=== PATIENT | male | born 1930 | race Caucasian/White ===

== ENCOUNTER 2016-08-31 | Outpatient (CLI) | payer MEDICARE, BC | END 2016-08-31 21:17 | disposition critical access hospital (66) | DX: R07.9 Chest pain, unspecified (principal) | CPT/HCPCS: A0425; A0427 ==

== ENCOUNTER 2016-08-31 21:34 | Inpatient (IN) | payer MEDICARE, BC ==
[2016-08-31] MEDS ORDERED: SODIUM CHLORIDE 0.9% 1,000 ML IV ONE (22:06)
[2016-08-31] MEDS ORDERED: ROCURONIUM 50 MG/5 ML VIAL IVP ONE ×2 (23:05)
[2016-08-31] MEDS ORDERED: MIDAZOLAM 50 MG/10 ML VIAL ONE (23:07)
[2016-08-31] MEDS ORDERED: diltiaZEM INJ 5 MG/ML VIAL ONE (23:47)
[2016-09-01] MEDS ORDERED: diltiaZEM INJ 5 MG/ML VIAL ONE (00:05)
[2016-09-01] MEDS ORDERED: KETOROLAC 60 MG/2 ML VIAL IVP STA (00:37)
[2016-09-01] MEDS ORDERED: IPRATROPIUM/ALBUTEROL 3 ML NEB INH STA (00:38)
[2016-09-01] MEDS ORDERED: KETOROLAC 30 MG/ML VIAL ONE (00:52)
[2016-09-01] MEDS ORDERED: IPRATROPIUM/ALBUTEROL 3 ML NEB INH ONE (00:53)
[2016-09-01] MEDS ORDERED: DEXAMETHASONE 10 MG/ML VIAL IVP STA (01:47)
[2016-09-01] MEDS ORDERED: cefTRIAXone 1 GM in SODIUM CHLORIDE 0.9% MINIBAG 100 ML IV STA (01:49)
[2016-09-01] MEDS ORDERED: DEXAMETHASONE 10 MG/ML VIAL ONE (02:14)
[2016-09-01] MEDS ORDERED: cefTRIAXone 1 GM VIAL ONE (02:14)
[2016-09-01] MEDS ORDERED: ONDANSETRON ODT 4 MG TABLET TL PRN (08:31)
[2016-09-01] MEDS ORDERED: ACETAMINOPHEN 325 MG TABLET PO PRN (08:31)
[2016-09-01] MEDS ORDERED: IPRATROPIUM/ALBUTEROL 3 ML NEB INH PRN (08:45)
[2016-09-01] MEDS ORDERED: KETOROLAC 10 MG TABLET PO PRN (08:49)
[2016-09-01] MEDS ORDERED: ENTACAPONE PO SCH (09:00)
[2016-09-01] MEDS ORDERED: LEVODOPA PO SCH (09:00)
[2016-09-01] MEDS ORDERED: [UNRECOGNIZED DRUG - OTHER] PO SCH (09:00)
[2016-09-01] MEDS ORDERED: CARBIDOPA PO SCH (09:00)
[2016-09-01] MEDS ORDERED: methylPREDNISolone SUCCINATE 40 MG/ML VIAL IVP SCH ×2 (09:30→13:00)
[2016-09-01] MEDS ORDERED: ENTACAPONE 200 MG TABLET PO SCH (10:00)
[2016-09-01] MEDS ORDERED: CARBIDOPA/LEVODOPA 25 MG/100 MG TABLET PO SCH (10:00)
[2016-09-01] MEDS: STALEVO PO SCH ×3 (12:30→20:59)
[2016-09-01] MEDS: guaiFENesin 600 MG TABLET PO SCH (12:59)
[2016-09-01] MEDS: PANTOPRAZOLE 40 MG TABLET PO SCH (12:59)
[2016-09-01] MEDS: POLYETHYLENE GLYCOL 3350 17 GM PACKET PO SCH (13:02)
[2016-09-01] MEDS: ENOXAPARIN 40 MG/0.4 ML SYRINGE SUBQ SCH (13:04)
[2016-09-01] MEDS: SENNA 8.6 MG TABLET PO SCH (14:29)
[2016-09-01] MEDS: DOCUSATE SODIUM 250 MG CAPSULE PO SCH (14:29)
[2016-09-01] MEDS: SODIUM CHLORIDE FLUSH 0.9% 10 ML SYRINGE IVP SCH ×2 (14:31→21:00)
[2016-09-01] MEDS: TAMSULOSIN 0.4 MG CAPSULE PO SCH (20:59)
[2016-09-02] MEDS: PANTOPRAZOLE 40 MG TABLET PO SCH (06:09)
[2016-09-02] MEDS: SODIUM CHLORIDE FLUSH 0.9% 10 ML SYRINGE IVP SCH ×3 (06:09→20:24)
[2016-09-02] MEDS: STALEVO PO SCH ×4 (08:19→20:25)
[2016-09-02] MEDS: guaiFENesin 600 MG TABLET PO SCH (08:20)
[2016-09-02] MEDS: DOCUSATE SODIUM 250 MG CAPSULE PO SCH (08:21)
[2016-09-02] MEDS: SENNA 8.6 MG TABLET PO SCH (08:22)
[2016-09-02] MEDS ORDERED: cefTRIAXone 2 GM in SODIUM CHLORIDE 0.9% MINIBAG 100 ML IV SCH (09:00)
[2016-09-02] MEDS ORDERED: cefTRIAXone 1 GM in SODIUM CHLORIDE 0.9% MINIBAG 100 ML IV SCH (09:00)
[2016-09-02] MEDS ORDERED: AZITHROMYCIN INJ 500 MG in SODIUM CHLORIDE 0.9% 250 ML IV SCH (09:00)
[2016-09-02] MEDS: cefTRIAXone 2 GM in SODIUM CHLORIDE 0.9% MINIBAG 100 ML IV SCH (09:11)
[2016-09-02] MEDS: POLYETHYLENE GLYCOL 3350 17 GM PACKET PO SCH (09:13)
[2016-09-02] MEDS: ENOXAPARIN 40 MG/0.4 ML SYRINGE SUBQ SCH (09:13)
[2016-09-02] MEDS: SODIUM CHLORIDE FLUSH 0.9% 10 ML SYRINGE IVP PRN ×2 (09:16→10:05)
[2016-09-02] MEDS: AZITHROMYCIN INJ 500 MG in SODIUM CHLORIDE 0.9% 250 ML IV SCH (10:44)
[2016-09-02] MEDS: TAMSULOSIN 0.4 MG CAPSULE PO SCH (20:24)
[2016-09-03] MEDS: SODIUM CHLORIDE FLUSH 0.9% 10 ML SYRINGE IVP SCH ×2 (05:51→14:59)
[2016-09-03] MEDS: PANTOPRAZOLE 40 MG TABLET PO SCH (05:51)
[2016-09-03] MEDS: cefTRIAXone 2 GM in SODIUM CHLORIDE 0.9% MINIBAG 100 ML IV SCH (08:11)
[2016-09-03] MEDS: STALEVO PO SCH ×2 (08:12→14:58)
[2016-09-03] MEDS: guaiFENesin 600 MG TABLET PO SCH (08:12)
[2016-09-03] MEDS: SENNA 8.6 MG TABLET PO SCH (08:13)
[2016-09-03] MEDS: DOCUSATE SODIUM 250 MG CAPSULE PO SCH (08:13)
[2016-09-03] MEDS: POLYETHYLENE GLYCOL 3350 17 GM PACKET PO SCH (08:13)
[2016-09-03] MEDS: ENOXAPARIN 40 MG/0.4 ML SYRINGE SUBQ SCH (08:13)
[2016-09-03] MEDS: AZITHROMYCIN INJ 500 MG in SODIUM CHLORIDE 0.9% 250 ML IV SCH (09:19)
== END 2016-09-03 15:32 | disposition home or self-care (01) | DRG 195 ==
DX: J18.9 Pneumonia, unspecified organism (principal); I10 Essential (primary) hypertension; R09.02 Hypoxemia; G20 Parkinson's disease; F32.9 Major depressive disorder, single episode, unspecified; F41.9 Anxiety disorder, unspecified; N40.0 Benign prostatic hyperplasia without lower urinary tract symptoms; M81.0 Age-related osteoporosis without current pathological fracture; I71.4 Abdominal aortic aneurysm, without rupture; K59.09 Other constipation; H54.7 Unspecified visual loss; Z85.828 Personal history of other malignant neoplasm of skin; Z79.899 Other long term (current) drug therapy; M19.90 Unspecified osteoarthritis, unspecified site

== ENCOUNTER 2017-10-26 08:00 | Outpatient (CLI) | payer BC, MEDICARE ==
[2017-10-26 19:01] LABS: CREATININE 1.1 mg/dL (0.6-1.2)
== END 2017-10-26 08:01 | disposition home or self-care (01) ==
LOC: LAB.WCP 08:00
PROVIDERS: ATTEND Urology
DX: R33.9 Retention of urine, unspecified (principal)
CPT/HCPCS: 36415; 82565

== ENCOUNTER 2017-12-28 14:48 | Outpatient (CLI) | payer MEDICARE | END 2017-12-28 14:49 | disposition critical access hospital (66) | LOC: EMS 14:48 | PROVIDERS: ATTEND Surgery | DX: R06.02 Shortness of breath (principal); M54.5 Low back pain; M25.552 Pain in left hip | CPT/HCPCS: A0425; A0427 ==

== ENCOUNTER 2017-12-28 15:07 | Emergency (ER) | payer MEDICARE ==
--- NOTE | 2017-12-28 15:40 | ED Physician Documentation ---
PD HPI DYSPNEA - Stated complaint Stated Complaint: SOA - Chief complaint Chief Complaint: Resp - History obtained from History obtained from: Patient - History of Present Illness Timing - onset: How many days ago (several) Timing - onset during: Light activity Timing - details: Gradual onset, Still present Inciting event(s): URI (has had some cough and congestion, and increased dyspnea. His daughter had cough last week and is improved.), Other (he fell a few days ago and hurt lower back/ right back chest area and has had some guarded movement from that.). No: Immobilization/travel Associated symptoms: Cough, Wheezing. No: Fever, Bilateral edema Similar symptoms before: Has not had sx before Recently seen: Not recently seen Review of Systems Constitutional: reports: Myalgias. denies: Fever, Chills Nose: denies: Rhinorrhea / runny nose, Congestion Throat: denies: Sore throat Respiratory: reports: Dyspnea, Cough GI: denies: Nausea, Vomiting, Diarrhea Skin: denies: Rash, Lesions, Abrasion (s) Musculoskeletal: reports: Back pain. denies: Neck pain, Extremity swelling Neurologic: reports: Generalized weakness. denies: Focal weakness, Numbness, Near syncope PD PAST MEDICAL HISTORY - Past Medical History Cardiovascular: High cholesterol Respiratory: None Neuro: Parkinson's, Peripheral neuropathy Endocrine/Autoimmune: None GI: Chronic constipation : Benign prostate hypertrophy HEENT: Chronic vision loss Psych: Depression, Anxiety Musculoskeletal: Osteoarthritis, Osteoporosis - Past Surgical History Past Surgical History: Yes Ortho: Hip replacement HEENT: Cataracts Derm: Skin cancer surgery - Present Medications Home Medications: Ambulatory Orders Medication Instructions Recorded Confirmed Tamsulosin HCl [Flomax] 0.4 mg PO QPM 02/18/15 09/01/16 Carbidopa/Levodopa/Entacapone 200 mg PO QID 08/31/16 09/01/16 [Carbidopa-Levodopa 150 mg-Enta] Albuterol Sulf [Ventolin Hfa 1 - 2 puffs INH Q4HR PRN #1 inhaler 12/28/17 Inhaler] Benzonatate [Tessalon] 100 mg PO TID PRN #25 capsule 12/28/17 Carbidopa/Levodopa 1 tab PO DAILY 12/28/17 12/28/17 [Carbidopa-Levodopa 25-100 Tab] Dexamethasone [Decadron] 4 mg PO DAILY #5 tablet 12/28/17 Doxycycline Hyclate 1 tab PO BID 12/28/17 12/28/17 Doxycycline Monohydrate 100 mg PO BID #14 tablet 12/28/17 - Allergies Allergies/Adverse Reactions: Allergies Allergy/AdvReac Type Severity Reaction Status Date / Time No Known Drug Allergies Allergy Verified 02/18/15 22:32 - Social History Does the pt smoke?: No Smoking Status: Never smoker Does the pt drink ETOH?: No Does the pt have substance abuse?: No - Family History Family history: reports: Non contributory - Immunizations Immunizations are current?: No Immunizations: TDAP >10years/unknown - POLST Patient has POLST: No PD ED PE NORMAL - Vitals Vital signs reviewed: Yes - General General: Alert and oriented X 3, No acute distress (sats are good; there is slight work of breathing with wheezing noted. ), Well developed/nourished - HEENT HEENT: Pharynx benign - Neck Neck: Supple, no meningeal sign, No adenopathy - Cardiac Cardiac: RRR, No murmur - Respiratory Respiratory: No: Clear bilaterally (wheezing noted diffusely, and some central hilar congestion with deep breathing and cough.) - Abdomen Abdomen: Soft, Non tender - Derm Derm: Normal color, Warm and dry - Extremities Extremities: No deformity, No tenderness to palpate, Normal ROM s pain, No edema , No calf tenderness / cord - Neuro Neuro: Alert and oriented X 3, No motor deficit, Normal speech Results - Vitals Vitals: Vital Signs - 24 hr 12/28/17 12/28/17 12/28/17 15:08 16:02 17:23 Temperature 36.8 C Heart Rate 81 89 83 Respiratory 18 16 16 Rate Blood Pressure 124/69 107/65 106/53 L O2 Saturation 97 93 96 12/28/17 12/28/17 12/28/17 18:10 18:40 19:03 Temperature Heart Rate 77 90 95 Respiratory 16 20 20 Rate Blood Pressure 114/66 123/72 O2 Saturation 95 95 12/28/17 19:25 Temperature Heart Rate 82 Respiratory 17 Rate Blood Pressure 123/72 O2 Saturation 95 Oxygen O2 Source Room air - Labs Labs: Laboratory Tests 12/28/17 12/28/17 12/28/17 16:53 16:53 16:53 WBC 5.9 RBC 4.47 L Hgb 12.9 L Hct 39.2 L MCV 87.9 MCH 28.9 MCHC 32.9 RDW 15.0 Plt Count 153 MPV 9.2 Neut # 4.5 Lymph # 0.9 L [place] # 0.5 Eos # 0.0 Baso # 0.0 Absolute Nucleated RBC 0.00 Nucleated RBC % 0.1 Sodium 137 Potassium 3.8 Chloride 105 Carbon Dioxide 24 Anion Gap 8.0 BUN 21 H Creatinine 1.1 Estimated GFR (MDRD) 63 L Glucose 111 H Calcium 8.7 Magnesium 1.7 Total Bilirubin 0.7 AST 18 ALT < 10 L Alkaline Phosphatase 81 Troponin I B-Natriuretic Peptide 206 H Total Protein 7.1 Albumin 3.7 Globulin 3.4 Albumin/Globulin Ratio 1.1 Lipase 17 L 12/28/17 16:53 WBC RBC Hgb Hct MCV MCH MCHC RDW Plt Count MPV Neut # Lymph # [place] # Eos # Baso # Absolute Nucleated RBC Nucleated RBC % Sodium Potassium Chloride Carbon Dioxide Anion Gap BUN Creatinine Estimated GFR (MDRD) Glucose Calcium Magnesium Total Bilirubin AST ALT Alkaline Phosphatase Troponin I < 0.04 B-Natriuretic Peptide Total Protein Albumin Globulin Albumin/Globulin Ratio Lipase - Rads (name of study) chest xray Radiology: Prelim report reviewed (streaky bibasilar infiltrates - ariway disease versus atelectasis. ) PD MEDICAL DECISION MAKING - ED course Complexity details: reviewed results (mild patchy infiltrates. ), considered differential (he is feeling improved with neb treatment. Will add steroids. His sats are okay and he does not look ill. He does have pneumonia though. Talked with him/daughter about OBS or home discharge and they feel he would be okay at home. ), d/w patient, d/w family (daughter) Departure - Departure Disposition: Home, Self Care Clinical Impression: Cough Dyspnea Qualifiers: Dyspnea type: shortness of breath Qualified Code(s): R06.02 - Shortness of breath Pneumonia Qualifiers: Pneumonia type: due to unspecified organism Laterality: unspecified laterality Lung location: unspecified part of lung Qualified Code(s): J18.9 - Pneumonia, unspecified organism Condition: Stable Record reviewed to determine appropriate education?: Yes Instructions: ED Pneumonia Adult Follow-Up: Johnnie Davila MD [Primary Care Provider] - Prescriptions: Albuterol Sulf [Ventolin Hfa Inhaler] 1 - 2 puffs INH Q4HR PRN #1 inhaler PRN Reason: Shortness Of Air/Wheezing Benzonatate [Tessalon] 100 mg PO TID PRN #25 capsule PRN Reason: Cough Dexamethasone [Decadron] 4 mg PO DAILY #5 tablet Doxycycline Monohydrate 100 mg PO BID #14 tablet Comments: Your chest x-ray looks pretty good though the radiologist thinks there may be a very early pneumonia developing. We will treat this with antibiotic as well as albuterol inhaler 2 puffs 4 times a day for the next 7-10 days, Decadron steroid for bronchial inflammation and this should decrease the coughing and improve breathing. Add Tessalon if needed for cough. Continue your other usual medications. Recheck if not improving over the next few days and return sooner if worsening. Tylenol every 6 hours if needed for pains. Discharge Date/Time: 12/28/17 19:25
[2017-12-28 16:58] LABS: BASOPHILS % (AUTO) 0.6 %; EOSINOPHILS % (AUTO) 0.8 %; HGB - HEMOGLOBIN 12.9 g/dL (14.0-18.0); LYMPHOCYTES # (AUTO) 0.9 10^3/uL (1.5-3.5); LYMPHOCYTES % (AUTO) 14.6 %; MEAN CORPUSCULAR HEMOGLOBIN 28.9 pg (27.0-31.0); MEAN CORPUSCULAR HGB CONC 32.9 g/dL (32.0-36.0); MEAN CORPUSCULAR VOLUME 87.9 fL (80.0-94.0); MEAN PLATELET VOLUME 9.2 fL (7.4-11.4); MONOCYTES # (AUTO) 0.5 10^3/uL (0.0-1.0); MONOCYTES % (AUTO) 8.8 %; NEUTROPHILS # (AUTO) 4.5 10^3/uL (1.5-6.6); NEUTROPHILS % (AUTO) 75.2 %; PLT - PLATELET COUNT 153 10^3/uL (130-450); RED BLOOD COUNT 4.47 10^6/uL (4.70-6.10); WHITE BLOOD COUNT 5.9 x10^3/uL (4.8-10.8)
[2017-12-28] MEDS ORDERED: IPRATROPIUM/ALBUTEROL 3 ML NEB INH STA (17:04)
--- NOTE | 2017-12-28 17:05 | XRAY Preliminary Report ---
Exam: XR CHEST 2 VIEW X-RAY IMPRESSION: Borderline low lung volumes with streaky bibasilar opacities likely representing a combin ation of bronchial wall thickening, which may be due to bronchitis or other airways disease, and atel ectasis. [facility] SITE ID: [id number]
[2017-12-28] MEDS ORDERED: DEXAMETHASONE 10 MG/ML VIAL IVP STA (17:06)
[2017-12-28] MEDS ORDERED: BENZONATATE 100 MG CAPSULE PO STA (17:06)
--- NOTE | 2017-12-28 17:23 | XRAY Report ---
EXAM: CHEST RADIOGRAPHY EXAM DATE: 12/28/2017 04:41 PM. CLINICAL HISTORY: Shortness of air. COMPARISON: Chest radiograph 09/02/2016, 08/31/2016 and rib radiograph 02/18/2015. CT chest 6. TECHNIQUE: 2 views. FINDINGS: Lungs/Pleura: Lung volumes are borderline low. Minimal streaky bibasilar opacities likely represent a combination of atelectasis and bronchial wall thickening. No focal consolidation. No pleural effusio n. No pneumothorax. Mediastinum: Heart and mediastinal contours are unremarkable. Pulmonary vasculature is within normal limits. Other: There is diffuse osseous demineralization. Old healed right rib fracture is again noted. IMPRESSION: Borderline low lung volumes with streaky bibasilar opacities likely representing a combin ation of bronchial wall thickening, which may be due to bronchitis or other airways disease, and atel ectasis. [facility] Referring Provider Line: [phone] SITE ID: [id number]
[2017-12-28 17:31] LABS: ALBUMIN 3.7 g/dL (3.2-5.5); ALBUMIN/GLOBULIN RATIO 1.1 (1.0-2.2); ALKALINE PHOSPHATASE 81 IU/L (42-121); ALT ALANINE AMINOTRANSFERASE < 10 IU/L (10-60); AST ASPARTATE AMINOTRANSFERASE 18 IU/L (10-42); BILIRUBIN,TOTAL 0.7 mg/dL (0.2-1.0); BUN - BLOOD UREA NITROGEN 21 mg/dL (6-20); CALCIUM 8.7 mg/dL (8.5-10.3); CARBON DIOXIDE - CO2 24 mmol/L (21-32); CHLORIDE 105 mmol/L (101-111); CREATININE 1.1 mg/dL (0.6-1.2); GFR - MDRD 63 (>89); GLUCOSE 111 mg/dL (70-100); LIPASE 17 U/L (22-51); MAGNESIUM 1.7 mg/dL (1.7-2.8); SODIUM 137 mmol/L (135-145); TOTAL PROTEIN 7.1 g/dL (6.7-8.2)
[2017-12-28] MEDS ORDERED: DOXYCYCLINE 100 MG TABLET PO STA (18:03)
[2017-12-28 19:04] VITALS: BP 123/72
== END 2017-12-28 19:25 | disposition home or self-care (01) ==
LOC: EDUNIT# → ED 15:07
DX: J18.9 Pneumonia, unspecified organism (principal); G20 Parkinson's disease; G62.9 Polyneuropathy, unspecified; M19.90 Unspecified osteoarthritis, unspecified site; M81.0 Age-related osteoporosis without current pathological fracture; Z96.649 Presence of unspecified artificial hip joint
CPT/HCPCS: 36415; 71046; 80053; 83690; 83735; 83880; 84484; 85025; 94640; 96374; 99284; A9270

== ENCOUNTER 2018-09-16 12:34 | Outpatient (CLI) | payer MEDICARE | END 2018-09-16 12:35 | disposition critical access hospital (66) | LOC: EMS 12:34 | PROVIDERS: ATTEND Surgery | DX: R07.81 Pleurodynia (principal); W18.39XA Other fall on same level, initial encounter; Y93.89 Activity, other specified; Y92.001 Dining room of unspecified non-institutional (private) residence as the place of occurrence of the external cause | CPT/HCPCS: A0425; A0429 ==

== ENCOUNTER 2018-09-16 12:50 | Inpatient (IN) | payer MEDICARE ==
[2018-09-16] MEDS ORDERED: HYDROcod/ACETAM 5/325 MG TABLET PO STA (15:03)
[2018-09-16] MEDS ORDERED: BACITRACIN OINT TOP ONE (15:04)
--- NOTE | 2018-09-16 15:11 | ED Physician Documentation ---
History of Present Illness - Stated complaint Stated Complaint: GLF - Chief complaint Chief Complaint: General - History obtained from History obtained from: Patient, Family - History of Present Illness Timing: Today Pain level max: 5 Pain level now: 4 Improved by: rest Worsened by: movement - Additonal information Additional information: 88-year-old male presents the emergency department after a ground-level fall today. He fell backwards while holding his walker. Hit the table edge on his left ribs as he fell to the ground. Did not strike his head. No loss of consciousness. No headache. Also complained of left shoulder pain. Also has a skin tear to the right elbow. He was able to stand up and ambulate after the event Review of Systems Ten Systems: 10 systems reviewed and negative Constitutional: denies: Fever, Chills Throat: denies: Sore throat Cardiac: denies: Chest pain / pressure Respiratory: denies: Cough GI: denies: Abdominal Pain, Nausea, Vomiting, Diarrhea Skin: denies: Rash Musculoskeletal: denies: Neck pain, Back pain Neurologic: denies: Focal weakness, Numbness, Confused, Altered mental status, Headache, Head injury PD PAST MEDICAL HISTORY - Past Medical History Past Medical History: Yes Cardiovascular: High cholesterol Respiratory: None Neuro: Parkinson's, Peripheral neuropathy Endocrine/Autoimmune: None GI: Chronic constipation : Benign prostate hypertrophy HEENT: Chronic vision loss Psych: Depression, Anxiety Musculoskeletal: Osteoarthritis, Osteoporosis - Past Surgical History Past Surgical History: Yes Ortho: Hip replacement HEENT: Cataracts Derm: Skin cancer surgery - Present Medications Home Medications: Ambulatory Orders Medication Instructions Recorded Confirmed Tamsulosin HCl [Flomax] 0.4 mg PO QPM 02/18/15 09/16/18 Doxycycline Hyclate 50 mg PO BID 12/28/17 09/16/18 Carbidopa/Levodopa/Entacapone 1 tab PO 0800,1230,1700,2130 09/16/18 09/16/18 [Stalevo 200 Tablet] Donepezil [Aricept] 5 mg PO DAILY 09/16/18 09/16/18 - Allergies Allergies/Adverse Reactions: Allergies Allergy/AdvReac Type Severity Reaction Status Date / Time No Known Drug Allergies Allergy Verified 09/16/18 13:21 - Social History Does the pt smoke?: No Smoking Status: Never smoker Does the pt drink ETOH?: No Does the pt have substance abuse?: No - Immunizations Immunizations are current?: No Immunizations: TDAP >10years/unknown - POLST Patient has POLST: No PD ED PE NORMAL - Vitals Vital signs reviewed: Yes - General General: Alert and oriented X 3, No acute distress - HEENT HEENT: Atraumatic, PERRL, EOMI, Ears normal, Moist mucous membranes, Pharynx benign - Neck Neck: Supple, no meningeal sign, No bony TTP - Cardiac Cardiac: RRR - Respiratory Respiratory: No respiratory distress, Clear bilaterally, Other (TTP over the L posterior ribs. ) - Abdomen Abdomen: Soft, Non tender, Non distended - Back Back: No spinal TTP - Derm Derm: Warm and dry, No rash - Extremities Extremities: Other (TTP over the L shoulder. FROM present with mild pain. o/w normal exam of the B UE and B LE. NVI) - Neuro Neuro: Alert and oriented X 3 - Psych Psych: Normal mood, Normal affect Results - Vitals Vitals: Vital Signs - 24 hr 09/16/18 09/16/18 09/16/18 13:02 13:05 15:36 Temperature 36.8 C Heart Rate 72 72 91 Respiratory 20 20 18 Rate Blood Pressure 123/75 123/75 133/73 H O2 Saturation 96 96 94 09/16/18 17:00 Temperature Heart Rate 92 Respiratory 20 Rate Blood Pressure 126/76 O2 Saturation 93 Oxygen O2 Source Room air - Labs Labs: Laboratory Tests 09/16/18 09/16/18 17:26 17:26 WBC 8.3 RBC 4.77 Hgb 13.9 L Hct 41.6 L MCV 87.3 MCH 29.1 MCHC 33.3 RDW 15.2 H Plt Count 150 MPV 9.7 Neut # (Auto) 6.7 H Lymph # (Auto) 1.0 L [place] # (Auto) 0.6 Eos # (Auto) 0.0 Baso # (Auto) 0.0 Absolute Nucleated RBC 0.00 Nucleated RBC % 0.0 Sodium 137 Potassium 4.1 Chloride 104 Carbon Dioxide 26 Anion Gap 7.0 BUN 22 H Creatinine 0.9 Estimated GFR (MDRD) 80 L Glucose 123 H Calcium 9.0 - Rads (name of study) Left shoulder x-ray Radiology: Prelim report reviewed, EMP read contemporaneously, See rad report (Mildly displaced posterior left seventh, eighth, and ninth rib fractures. No shoulder fracture appreciated. ) Left rib x-ray Radiology: Prelim report reviewed, EMP read contemporaneously, See rad report (Acute fractures of the left seventh through tenth ribs as described. Trace left effusion; no pneumothorax appreciated. ) PD MEDICAL DECISION MAKING - ED course Complexity details: reviewed results, re-evaluated patient, considered differential, d/w patient, d/w family ED course: 88-year-old male with multiple rib fractures. No pneumothorax. Will admit for aggressive pulmonary toilet and pain control. Discussed case with the hospitalist who accepts. This document was made in part using voice recognition software. While efforts are made to proofread this document, sound alike and grammatical errors may oc cur. Departure - Departure Disposition: 66 [facility] DC/Xfer Clinical Impression: Multiple rib fractures Qualifiers: Encounter type: initial encounter Fracture type: closed Laterality: left Qualified Code(s): S22.42XA - Multiple fractures of ribs, left side, initial encounter for closed fracture Condition: Stable Discharge Date/Time: 09/16/18 18:14
--- NOTE | 2018-09-16 16:12 | XRAY Report ---
Reason: L shoulder pain s/p fall Procedure Date: 09/16/2018 Accession Number: [id number] / [id number] Procedure: XR - Shoulder 3 View LT CPT Code: FULL RESULT: EXAM: LEFT SHOULDER RADIOGRAPHY EXAM DATE: 09/16/2018 03:49 PM. CLINICAL HISTORY: Left shoulder pain status post fall. COMPARISON: None. TECHNIQUE: 3 views. FINDINGS: Bones: Mildly displaced fractures of the posterior left seventh, eighth, and ninth ribs noted. No fracture of the shoulder. Joints: The glenohumeral and acromioclavicular joints are normal. Soft tissues: As above. No appreciable pneumothorax. IMPRESSION: 1. Mildly displaced posterior left seventh, eighth, and ninth rib fractures. 2. No shoulder fracture appreciated. [facility]
--- NOTE | 2018-09-16 16:24 | XRAY Report ---
Reason: FALL Procedure Date: 09/16/2018 Accession Number: [id number] / [id number] Procedure: XR - Ribs 2 View LT CPT Code: FULL RESULT: EXAM: LEFT RIB RADIOGRAPHY EXAM DATE: 09/16/2018 03:49 PM. CLINICAL HISTORY: Fall. COMPARISON: Chest 2 view 12/28/2017 4:11 PM. TECHNIQUE: 2 views. FINDINGS: Bones: Mildly displaced fractures of the left posterior seventh, eighth and ninth ribs. Nondisplaced fracture of the posterior 10th rib. Remote healed fractures of right sided ribs. Lungs: Lungs are hypo-expanded with subsegmental basilar atelectasis greater on the left. Trace effusion. No extra ventilatory air. Mediastinum: Heart and cardiomediastinal contours are unremarkable. Other: None. IMPRESSION: Acute fractures of the left seventh through tenth ribs as described. Trace left effusion; no pneumothorax appreciated. [facility]
[2018-09-16] MEDS ORDERED: MORPHINE 2 MG/ML CARPUJECT IVP STA (17:02)
[2018-09-16] MEDS ORDERED: MORPHINE 2 MG/ML CARPUJECT ONE (17:14)
[2018-09-16 17:41] LABS: BASOPHILS % (AUTO) 0.3 %; CREATININE 0.9 mg/dL (0.6-1.2); EOSINOPHILS % (AUTO) 0.2 %; HGB - HEMOGLOBIN 13.9 g/dL (14.0-18.0); LYMPHOCYTES % (AUTO) 11.6 %; MEAN CORPUSCULAR HEMOGLOBIN 29.1 pg (27.0-31.0); MEAN CORPUSCULAR HGB CONC 33.3 g/dL (32.0-36.0); MEAN CORPUSCULAR VOLUME 87.3 fL (80.0-94.0); MEAN PLATELET VOLUME 9.7 fL (7.4-11.4); MONOCYTES # (AUTO) 0.6 10^3/uL (0.0-1.0); MONOCYTES % (AUTO) 7.7 %; NEUTROPHILS # (AUTO) 6.7 10^3/uL (1.5-6.6); NEUTROPHILS % (AUTO) 80.2 %; PLT - PLATELET COUNT 150 10^3/uL (130-450); RED BLOOD COUNT 4.77 10^6/uL (4.70-6.10); RED CELL DISTRIBUTION WIDTH 15.2 % (12.0-15.0); WHITE BLOOD COUNT 8.3 x10^3/uL (4.8-10.8)
--- NOTE | 2018-09-16 17:43 | HISTORY & PHYSICAL EXAMINATION ---
Chief Complaint - Chief Complaint Chief Complaint: GLF History of Present Illness - Admitted From Admitted From:: Home - History Obtained From Records Reviewed: Yes, in [facility] History obtained from: Patient and patient's daughter Francesca Exam Limitations: None - History of Present Illness HPI Comment/Other: Mr. Ritchie is a 88 year old male with a past medical history of high cholesterol, chronic constipation, BPH, parkinsons, osteoarthritis and osteoporosis who presented to the ER today with his daughter, Francesca, after a mechanical ground level fall this morning when getting up from the table after breakfast. He hit his left ribs as he fell to the ground. He did not hit his head. He has a skin tear on his right elbow from the fall. He was able to stand and ambulate after the event. He uses a walker to ambulate at baseline. Per Francesca, he does not ambulate often at home[place] He presented to the ER due to left rib pain. Imaging completed in the ER demonstrated acute fractures of the left seventh through tenth ribs. He is being admitted for left rib fractures and pain control. Upon examination of the patient in the ER, he is laying comfortably on the bed after receiving IV morphine. He denies nausea. He reports it is painful to take a deep breath. He is incontinent at times. He denies CP. History - Past Medical History Cardiovascular: reports: High cholesterol Respiratory: reports: None Neuro: reports: Parkinson's, Peripheral neuropathy Endocrine/Autoimmune: reports: None GI: reports: Chronic constipation : reports: Benign prostate hypertrophy HEENT: reports: Chronic vision loss Psych: reports: Depression, Anxiety Musculoskeletal: reports: Osteoarthritis, Osteoporosis MRSA Hx?: No - Past Surgical History Ortho: reports: Hip replacement HEENT: reports: Cataracts Derm: reports: Skin cancer surgery - Family & Social History Living arrangement: At home Living Situation: With family Social History Notes: Lives at home with his daughter, Francesca. - Substance History Use: Uses substance without health or social issues: NONE Dependence: Experiences withdrawal or developed tolerances: NONE Tobacco Details: Other (Non-smoker) - POLST Patient has POLST: No Meds/Allgy - Home Medications Home Medications: Ambulatory Orders Medication Instructions Recorded Confirmed Tamsulosin HCl [Flomax] 0.4 mg PO QPM 02/18/15 09/16/18 Doxycycline Hyclate 50 mg PO BID 12/28/17 09/16/18 Carbidopa/Levodopa/Entacapone 1 tab PO 0800,1230,1700,2130 09/16/18 09/16/18 [Stalevo 200 Tablet] Donepezil [Aricept] 5 mg PO DAILY 09/16/18 09/16/18 - Allergies Allergies/Adverse Reactions: Allergies Allergy/AdvReac Type Severity Reaction Status Date / Time No Known Drug Allergies Allergy Verified 09/16/18 13:21 Review of Systems - Constitutional Constitutional: denies: Fatigue, Fever, Chills, Poor appetite, Weight loss - Eyes Eyes: reports: Vision loss - Ears, Nose & Throat Ears, Nose & Throat: reports: Hearing loss, Hearing aids - Cardiovascular Cariovascular: denies: Irregular heart rate, Chest pain - Respiratory Respiratory: denies: Cough, SOB at rest, SOB with exertion - Gastrointestinal Gastrointestinal: reports: Constipation. denies: Abdominal pain - Genitourinary Genitourinary: reports: Incontinence. denies: Dysuria, Frequency - Musculoskeletal Musculoskeletal: reports: Other (minimal left rib pain at this time after receiving morphine) - Integumentary Integumentary: denies: Rash - Neurological Neurological: reports: Pre-existing deficit, Abnormal gait, Incoordination - Psychiatric Psychiatric: denies: Depression, Anxiety - Hematologic/Lymphatic Hematologic/Lymphatic: denies: Bruising, Bleeding tendencies - All Other Systems All Other Systems: reports: Reviewed and negative Prior Level of Functionality: Ambulates with a walker Exam - Vital Signs Reviewed Vital Signs: Yes Vital Signs: Vital Signs x48h Temp Pulse Resp BP Pulse Ox 09/16/18 15:36 91 18 133/73 H 94 09/16/18 13:05 72 20 123/75 96 09/16/18 13:02 36.8 C 72 20 123/75 96 - Physical Exam General Appearance: positive: No acute distress, Alert Eyes Bilateral: positive: Normal inspection, PERRL, Other (wears glasses) ENT: positive: ENT inspection nml, Pharynx nml, Other (bilateral hearing aids) Neck: positive: Trachea midline Respiratory: positive: Chest non-tender, No respiratory distress, Breath sounds nml Cardiovascular: positive: Regular rate & rhythm Peripheral Pulses: positive: 2+ Abdomen: positive: Non-tender, No organomegaly, Nml bowel sounds Back: positive: Nml inspection, Other (Left chest non-tender to touch) Skin: positive: Warm, Dry Extremities: positive: Non-tender Neurologic/Psychiatric: positive: Oriented x3, Motor nml, Sensation nml, Mood/affect nml Conclusion/Plan - Problem List (1) Multiple rib fractures Conclusion/Plan: With uncontrolled pain in the ER. Says it is difficult to take deep breaths. Plan: Encourage splinting, coughing and deep breathing. Incentive spirometer. Pain control with oral medication. Will add IV toradol. Plan to discharge tomorrow pending pain control. Qualifiers: Encounter type: initial encounter Fracture type: closed Laterality: left Qualified Code(s): S22.42XA - Multiple fractures of ribs, left side, initial encounter for closed fracture (2) Chest wall contusion Conclusion/Plan: See plan above. Qualifiers: Encounter type: initial encounter Laterality: right Qualified Code(s): S20.211A - Contusion of right front wall of thorax, initial encounter (3) Chest wall pain Conclusion/Plan: See plan above. (4) Fall from ground level Conclusion/Plan: Patient ambulates with walker at baseline Plan: fall precautions. (5) Parkinsons Conclusion/Plan: Patient ambulates with walker at home. With frequent falls, last prior to today's fall, roughly 1 month ago. Plan: continue home parkinsons medications. ambulate with assistance. - Lab Results Fish Bones: 09/16/18 17:26 09/16/18 17:26 - Diagnostic Imaging Results Diagnostic Imaging Results: positive: Final report reviewed Diagnostic Imaging Results Comments: Left rib xray 09/16/2018 -- acute fractures of the left seventh through tenth ribs
[2018-09-16] MEDS ORDERED: ACETAMINOPHEN 325 MG TABLET PO PRN (17:44)
[2018-09-16] MEDS: HYDROmorphone 0.5 MG/0.5 ML SYRINGE IVP PRN (21:02)
[2018-09-16] MEDS: CARBIDOPA PO SCH (21:03)
[2018-09-16] MEDS: SODIUM CHLORIDE FLUSH 0.9% 10 ML SYRINGE IVP PRN (21:03)
[2018-09-16] MEDS: ENTACAPONE PO SCH (21:03)
[2018-09-16] MEDS: DOXYCYCLINE HYCLATE 50 MG PO SCH (21:03)
[2018-09-16] MEDS: LEVODOPA PO SCH (21:03)
[2018-09-16] MEDS: HEPARIN 5,000 UNIT/ML VIAL SUBQ SCH (21:06)
[2018-09-16] MEDS: TAMSULOSIN 0.4 MG CAPSULE PO SCH (21:22)
[2018-09-17] MEDS: SODIUM CHLORIDE FLUSH 0.9% 10 ML SYRINGE IVP SCH ×3 (03:03→17:20)
[2018-09-17] MEDS: oxyCODONE 5 MG TABLET PO PRN ×3 (06:43→20:47)
--- NOTE | 2018-09-17 08:18 | Discharge Plan ---
Discharge Plan Disposition: 01 Home, Self Care Condition: Stable Prescriptions: oxyCODONE [Roxicodone] 5 mg PO Q4HR PRN #25 tablet PRN Reason: Pain Polyethylene Glycol 3350 [Miralax] 17 gm PO DAILY #10 packet Diet: Regular Activity Restrictions: No Restrictions Shower Restrictions: No Driving Restrictions: No Assistance Devices: Wheelchair Weight Bearing: Full Weight Additional Instructions or Follow Up instructions: You were admitted to the hospital with multiple left rib fractures. You were admitted for pain control. You are being discharged with oxycodone 5 mg for pain relief. Please wean yourself off of this medication as your rib fractures heal. Oxycodone is a narcotic and narcotics cause constipation. Please be sure to take a laxative (miralax, senna, and/or colace) while you are taking a narcotic pain medication. Take tylenol around the clock for the first few days. Be sure to use your incentive spirometer every hour while you are awake to help prevent pneumonia. Hold a pillow to your left chest/side (splinting) when you need to cough to help alleviate pain felt when doing this. Continue to walk with the assistance of your walker. Follow-up with your primary care provider in 7-10 days. No Smoking: If you smoke, Please STOP! Call for help. Follow-up with: Johnnie Davila MD [Primary Care Provider] -
--- NOTE | 2018-09-17 08:18 | DISCHARGE SUMMARY ---
Discharge Summary Condition at Discharge: Stable - ALLERGIES Allergies/Adverse Reactions: Allergies Allergy/AdvReac Type Severity Reaction Status Date / Time No Known Drug Allergies Allergy Verified 09/16/18 13:21 - MEDICATIONS Home Medications: Ambulatory Orders Medication Instructions Recorded Confirmed Tamsulosin HCl [Flomax] 0.4 mg PO QPM 02/18/15 09/16/18 Doxycycline Hyclate 50 mg PO BID 12/28/17 09/16/18 Carbidopa/Levodopa/Entacapone 1 tab PO 0800,1230,1700,2130 09/16/18 09/16/18 [Stalevo 200 Tablet] Donepezil [Aricept] 5 mg PO DAILY 09/16/18 09/16/18 - LABS Result Diagrams: 09/16/18 17:26 09/16/18 17:26
[2018-09-17] MEDS: POLYETHYLENE GLYCOL 3350 17 GM PACKET PO SCH (09:34)
[2018-09-17] MEDS: DONEPEZIL 5 MG TABLET PO SCH (09:37)
[2018-09-17] MEDS: ENTACAPONE PO SCH ×4 (09:38→21:29)
[2018-09-17] MEDS: LEVODOPA PO SCH ×4 (09:38→21:29)
[2018-09-17] MEDS: DOXYCYCLINE HYCLATE 50 MG PO SCH ×2 (09:38→20:41)
[2018-09-17] MEDS: CARBIDOPA PO SCH ×4 (09:38→21:29)
[2018-09-17] MEDS: ACETAMINOPHEN 325 MG TABLET PO SCH ×3 (09:46→20:40)
[2018-09-17] MEDS: HEPARIN 5,000 UNIT/ML VIAL SUBQ SCH ×2 (09:53→20:39)
--- NOTE | 2018-09-17 12:19 | PROVIDER PROGRESS NOTE ---
Subjective - Prog Note Date Prog Note Date: 09/17/18 Prog Note Time: 08:00 - Subjective Subjective: Patient reports improved pain control. Oxygen saturation on RA is low 90s Denies shortness of breath Denies cough Current Medications - Current Medications Current Medications: Active Medications Acetaminophen (Tylenol) 650 mg PO Q6H [facility] Last Admin: 09/17/18 09:46 Dose: 650 mg Donepezil HCl (Aricept) 5 mg PO DAILY [facility] Last Admin: 09/17/18 09:37 Dose: 5 mg Heparin Sodium (Porcine) () 5,000 unit SUBQ BID [facility] Last Admin: 09/17/18 09:53 Dose: 5,000 unit Hydromorphone HCl (Dilaudid Inj Syringe) 0.5 mg IVP Q4HR PRN PRN Reason: Pain 8 to 10 Last Admin: 09/16/18 21:02 Dose: 0.5 mg Oxycodone HCl (Roxicodone) 5 mg PO Q4HR PRN PRN Reason: Pain 5 to 7 Last Admin: 09/17/18 12:42 Dose: 5 mg Carbidopa/Levodopa/Entacapone [Stalevo 200 Tablet] 1 Tab 1 each PO 0800,1230,1700,2130 [facility] Last Admin: 09/17/18 12:31 Dose: 1 each Doxycycline Hyclate [Doxycycline Hyclate ] 50 Mg Cap 1 each PO BID [facility] Last Admin: 09/17/18 09:38 Dose: 1 each Polyethylene Glycol (Miralax) 17 gm PO DAILY [facility] Last Admin: 09/17/18 09:34 Dose: 17 gm Sodium Chloride (Normal Saline Flush 0.9%) 10 ml IVP PRN PRN PRN Reason: NEEDED PER PROVIDER ORDERS Last Admin: 09/16/18 21:03 Dose: 10 ml Sodium Chloride (Normal Saline Flush 0.9%) 10 ml IVP 0100,0900,1700 [facility] Last Admin: 09/17/18 09:47 Dose: 10 ml Tamsulosin HCl (Flomax) 0.4 mg PO QPM [facility] Last Admin: 09/16/18 21:22 Dose: 0.4 mg Home medications: Tamsulosin HCl [Flomax] 0.4 mg PO QPM 02/18/15 Doxycycline Hyclate 50 mg PO BID 12/28/17 Carbidopa/Levodopa/Entacapone [Stalevo 200 Tablet] 1 tab PO 0800,1230,1700,2130 09/16/18 Donepezil [Aricept] 5 mg PO DAILY 09/16/18 Objective - Vital Signs/Intake & Output Reviewed Vital Signs: Yes Vital Signs: Vital Signs x48h Temp Pulse Resp BP Pulse Ox 09/17/18 08:00 36.8 C 63 18 101/53 L 90 L Intake & Output: Intake & Output 09/14/18 09/15/18 09/16/18 09/17/18 23:59 23:59 23:59 23:59 Intake Total 100 120 Balance 100 120 - Objective General Appearance: positive: No acute distress, Alert Eyes Bilateral: positive: Normal inspection, PERRL ENT: positive: ENT inspection nml, Pharynx nml Neck: positive: Nml inspection, No JVD Respiratory: positive: No respiratory distress, Breath sounds nml Cardiovascular: positive: Regular rate & rhythm, No murmur, No gallop Abdomen: positive: Non-tender, No organomegaly, Nml bowel sounds, No distention Skin: positive: Warm, Dry Neurologic/Psychiatric: positive: Oriented x3, CN's nml (2-12), Weakness - Lab Results Fish Bones: 09/16/18 17:26 09/16/18 17:26 Other Labs: Lab Results x24hrs 09/16/18 09/16/18 Range/Units 17:26 17:26 WBC 8.3 (4.8-10.8) x10^3/uL RBC 4.77 (4.70-6.10) 10^6/uL Hgb 13.9 L (14.0-18.0) g/dL Hct 41.6 L (42.0-52.0) % MCV 87.3 (80.0-94.0) fL MCH 29.1 (27.0-31.0) pg MCHC 33.3 (32.0-36.0) g/dL RDW 15.2 H (12.0-15.0) % Plt Count 150 (130-450) 10^3/uL MPV 9.7 (7.4-11.4) fL Neut # (Auto) 6.7 H (1.5-6.6) 10^3/uL Lymph # (Auto) 1.0 L (1.5-3.5) 10^3/uL [place] # (Auto) 0.6 (0.0-1.0) 10^3/uL Eos # (Auto) 0.0 (0.0-0.7) 10^3/uL Baso # (Auto) 0.0 (0.0-0.1) 10^3/uL Absolute Nucleated RBC 0.00 x10^3/uL Nucleated RBC % 0.0 /100WBC Sodium 137 (135-145) mmol/L Potassium 4.1 (3.5-5.0) mmol/L Chloride 104 (101-111) mmol/L Carbon Dioxide 26 (21-32) mmol/L Anion Gap 7.0 (6-13) BUN 22 H (6-20) mg/dL Creatinine 0.9 (0.6-1.2) mg/dL Estimated GFR (MDRD) 80 L (>89) Glucose 123 H (70-100) mg/dL Calcium 9.0 (8.5-10.3) mg/dL Assessment/Plan - Problem List (1) Multiple rib fractures Impression: With uncontrolled pain in the ER. He reports that it is still difficult for him to take deep breaths. His pain was controlled overnight but he developed hypoxia requiring 2L NC. His lung sounds are clear/diminished. Plan: Encourage ambulation, splinting, coughing, and deep breathing. Incentive spirometer to be completed every hour while awake. Pain control with oral medication. add scheduled tylenol Plan to discharge tomorrow pending oxygenation status. Qualifiers: Encounter type: initial encounter Fracture type: closed Laterality: left Qualified Code(s): S22.42XA - Multiple fractures of ribs, left side, initial encounter for closed fracture (2) Chest wall contusion Plan: see above Qualifiers: Encounter type: initial encounter Laterality: right Qualified Code(s): S20.211A - Contusion of right front wall of thorax, initial encounter (3) Chest wall pain Plan: see above (4) Fall from ground level Impression: Patient ambulates with walker at baseline Plan: fall precautions. Encourage patient to ambulate with assistance during hospitalization. (5) Parkinsons Impression: Patient ambulates with walker at home. With frequent falls, last prior to today's fall, roughly 1 month ago. Plan: continue home parkinsons medications. ambulate with assistance. Qualifiers: Encounter type: initial encounter Fracture type: closed Laterality: left Qualified Code(s): S22.42XA - Multiple fractures of ribs, left side, initial encounter for closed fracture
[2018-09-17] MEDS: TAMSULOSIN 0.4 MG CAPSULE PO SCH (20:40)
[2018-09-18] MEDS: oxyCODONE 5 MG TABLET PO PRN ×2 (00:49→05:03)
[2018-09-18] MEDS: ACETAMINOPHEN 325 MG TABLET PO SCH ×4 (02:03→20:51)
[2018-09-18] MEDS: SODIUM CHLORIDE FLUSH 0.9% 10 ML SYRINGE IVP SCH ×3 (02:05→14:24)
[2018-09-18] MEDS: ENTACAPONE PO SCH ×4 (08:19→20:51)
[2018-09-18] MEDS: CARBIDOPA PO SCH ×4 (08:19→20:51)
[2018-09-18] MEDS: LEVODOPA PO SCH ×4 (08:19→20:51)
[2018-09-18] MEDS: POLYETHYLENE GLYCOL 3350 17 GM PACKET PO SCH (08:19)
[2018-09-18] MEDS: DOXYCYCLINE HYCLATE 50 MG PO SCH ×2 (08:19→20:51)
[2018-09-18] MEDS: DONEPEZIL 5 MG TABLET PO SCH (08:19)
[2018-09-18] MEDS: HEPARIN 5,000 UNIT/ML VIAL SUBQ SCH ×2 (08:44→20:52)
[2018-09-18] MEDS: KETOROLAC 15 MG/ML VIAL IVP SCH ×3 (08:44→19:14)
--- NOTE | 2018-09-18 09:24 | PROVIDER PROGRESS NOTE ---
Subjective - Prog Note Date Prog Note Date: 09/18/18 Prog Note Time: 08:30 - Subjective Subjective: This morning patient is on 4L NC with oxygen saturations in low 90s He denies dyspnea or cough Reports pain is getting better Unsure how often he is using his incentive spirometer Has not gotten out of the bed since admission Current Medications - Current Medications Current Medications: Active Medications Acetaminophen (Tylenol) 650 mg PO Q6H [facility] Last Admin: 09/18/18 08:19 Dose: 650 mg Donepezil HCl (Aricept) 5 mg PO DAILY [facility] Last Admin: 09/18/18 08:19 Dose: 5 mg Heparin Sodium (Porcine) () 5,000 unit SUBQ BID [facility] Last Admin: 09/18/18 08:44 Dose: 5,000 unit Hydromorphone HCl (Dilaudid Inj Syringe) 0.5 mg IVP Q4HR PRN PRN Reason: Pain 8 to 10 Last Admin: 09/16/18 21:02 Dose: 0.5 mg Ketorolac Tromethamine (Toradol Inj (15mg)) 15 mg IVP Q6HR [facility] Stop: 09/18/18 18:01 Last Admin: 09/18/18 08:44 Dose: 15 mg Oxycodone HCl (Roxicodone) 5 mg PO Q4HR PRN PRN Reason: Pain 5 to 7 Last Admin: 09/18/18 05:03 Dose: 5 mg Carbidopa/Levodopa/Entacapone [Stalevo 200 Tablet] 1 Tab 1 each PO 0800,1230,1700,2130 [facility] Last Admin: 09/18/18 08:19 Dose: 1 each Doxycycline Hyclate [Doxycycline Hyclate ] 50 Mg Cap 1 each PO BID [facility] Last Admin: 09/18/18 08:19 Dose: 1 each Polyethylene Glycol (Miralax) 17 gm PO DAILY [facility] Last Admin: 09/18/18 08:19 Dose: 17 gm Sodium Chloride (Normal Saline Flush 0.9%) 10 ml IVP PRN PRN PRN Reason: NEEDED PER PROVIDER ORDERS Last Admin: 09/16/18 21:03 Dose: 10 ml Sodium Chloride (Normal Saline Flush 0.9%) 10 ml IVP 0100,0900,1700 [facility] Last Admin: 09/18/18 08:20 Dose: 10 ml Tamsulosin HCl (Flomax) 0.4 mg PO QPM [facility] Last Admin: 09/17/18 20:40 Dose: 0.4 mg Home medications: Tamsulosin HCl [Flomax] 0.4 mg PO QPM 02/18/15 Doxycycline Hyclate 50 mg PO BID 12/28/17 Carbidopa/Levodopa/Entacapone [Stalevo 200 Tablet] 1 tab PO 0800,1230,1700,2130 09/16/18 Donepezil [Aricept] 5 mg PO DAILY 09/16/18 Objective - Vital Signs/Intake & Output Reviewed Vital Signs: Yes Vital Signs: Vital Signs x48h Temp Pulse Resp BP Pulse Ox 09/18/18 08:00 36.3 C L 61 14 110/60 90 L Intake & Output: Intake & Output 09/15/18 09/16/18 09/17/18 09/18/18 23:59 23:59 23:59 23:59 Intake Total 100 1054 100 Balance 100 1054 100 - Objective General Appearance: positive: No acute distress, Alert Eyes Bilateral: positive: Normal inspection, PERRL, EOMI, Other (Wears glasses.) ENT: positive: Dry mucous membranes, Other (Hard of hearing with bilateral hearing aids) Neck: positive: Nml inspection, No JVD Respiratory: positive: No respiratory distress, Breath sounds nml. negative: Wheezes, Rales, Rhonchi Cardiovascular: positive: Regular rate & rhythm, No murmur, No gallop Peripheral Pulses: 2+ Dorsalis pedis (R), 2+ Dorsalis pedis (L) Abdomen: positive: Non-tender, Nml bowel sounds, No distention Skin: positive: Warm, Dry Extremities: positive: Non-tender, Full ROM Neurologic/Psychiatric: positive: Oriented x3, CN's nml (2-12), Sensation nml, Mood/affect nml, Weakness - Lab Results Fish Bones: 09/16/18 17:26 09/16/18 17:26 Assessment/Plan - Problem List (1) Multiple rib fractures Impression: With uncontrolled pain in the ER. He reports that it is still difficult for him to take deep breaths. He is currently on 4L NC with oxygen saturations in the low 90s. He denies dyspnea. Plan: Encourage ambulation, splinting, coughing, and deep breathing. Incentive spirometer to be completed every hour while awake. Acapella TID added today Pain control with oral medication. continue scheduled tylenol add 3 doses of 15 mg IV toradol PT consult to help with ambulation CXR to evaluate hypoxia Qualifiers: Encounter type: initial encounter Fracture type: closed Laterality: left Qualified Code(s): S22.42XA - Multiple fractures of ribs, left side, initial encounter for closed fracture (2) Chest wall contusion Plan: see above Qualifiers: Encounter type: initial encounter Laterality: right Qualified Code(s): S20.211A - Contusion of right front wall of thorax, initial encounter (3) Chest wall pain Plan: see above (4) Fall from ground level Impression: Patient ambulates with walker at baseline Plan: PT consult fall precautions. Encourage patient to ambulate with assistance during hospitalization. (5) Parkinsons Impression: Patient ambulates with walker at home. With frequent falls, last prior to today's fall, roughly 1 month ago. Plan: continue home parkinsons medications. PT consult ambulate with assistance. Qualifiers:
[2018-09-18 09:52] LABS: BASOPHILS % (AUTO) 0.6 %; EOSINOPHILS # (AUTO) 0.1 10^3/uL (0.0-0.7); EOSINOPHILS % (AUTO) 1.7 %; HGB - HEMOGLOBIN 12.4 g/dL (14.0-18.0); LYMPHOCYTES % (AUTO) 15.5 %; MEAN CORPUSCULAR HEMOGLOBIN 29.4 pg (27.0-31.0); MEAN CORPUSCULAR HGB CONC 33.4 g/dL (32.0-36.0); MEAN CORPUSCULAR VOLUME 88.2 fL (80.0-94.0); MEAN PLATELET VOLUME 9.3 fL (7.4-11.4); MONOCYTES # (AUTO) 0.5 10^3/uL (0.0-1.0); MONOCYTES % (AUTO) 8.6 %; NEUTROPHILS # (AUTO) 4.5 10^3/uL (1.5-6.6); NEUTROPHILS % (AUTO) 73.6 %; PLT - PLATELET COUNT 141 10^3/uL (130-450); RED BLOOD COUNT 4.22 10^6/uL (4.70-6.10); RED CELL DISTRIBUTION WIDTH 15.2 % (12.0-15.0); WHITE BLOOD COUNT 6.1 x10^3/uL (4.8-10.8)
--- NOTE | 2018-09-18 10:03 | XRAY Report ---
Reason: hypoxia. s/p fall with rib fractures Procedure Date: 09/18/2018 Accession Number: [id number] / [id number] Procedure: XR - Chest 1 View X-Ray CPT Code: 39680 FULL RESULT: EXAM: CHEST RADIOGRAPHY EXAM DATE: 09/18/2018 08:49 AM. CLINICAL HISTORY: Hypoxia. Fall with rib fractures on the left. COMPARISON: Rib films 09/16/2018. TECHNIQUE: 1 view. FINDINGS: Lungs/Pleura: Asymmetric increased opacity at left lung base and left perihilar region with left pleural effusion and probable atelectasis. No definite pneumothorax is seen. Right lung appears clear. Remote healed right rib fractures and acute left rib fractures again seen. Mediastinum: Calcified atherosclerosis in the aorta. Within exam limitations, the cardiomediastinal contour is normal. No gross mediastinal widening. Other: None. IMPRESSION: New/increased left pleural effusion and left lung atelectasis. No definite pneumothorax seen. No other change. RADIA
[2018-09-18 10:14] LABS: CALCIUM 8.7 mg/dL (8.5-10.3)
[2018-09-18] MEDS ORDERED: MIN OIL/DIMETHICON/COCONUT OIL 92 GM TUBE TOP PRN (13:28)
[2018-09-18] MEDS ORDERED: ENTACAPONE 200 MG TABLET PO SCH (17:00)
[2018-09-18] MEDS ORDERED: CARBIDOPA/LEVODOPA 25 MG/100 MG TABLET PO SCH (17:00)
[2018-09-18] MEDS: TAMSULOSIN 0.4 MG CAPSULE PO SCH (20:51)
[2018-09-19] MEDS: HYDROmorphone 0.5 MG/0.5 ML SYRINGE IVP PRN (01:16)
[2018-09-19] MEDS: SODIUM CHLORIDE FLUSH 0.9% 10 ML SYRINGE IVP PRN (01:17)
[2018-09-19] MEDS: SODIUM CHLORIDE FLUSH 0.9% 10 ML SYRINGE IVP SCH ×3 (02:12→16:43)
[2018-09-19] MEDS: ACETAMINOPHEN 325 MG TABLET PO SCH ×4 (02:14→20:37)
[2018-09-19] MEDS: oxyCODONE 5 MG TABLET PO PRN (06:28)
[2018-09-19] MEDS: HEPARIN 5,000 UNIT/ML VIAL SUBQ SCH ×2 (08:40→20:40)
[2018-09-19] MEDS: POLYETHYLENE GLYCOL 3350 17 GM PACKET PO SCH (08:44)
[2018-09-19] MEDS: SENNA 8.6 MG TABLET PO SCH (08:44)
[2018-09-19] MEDS: DONEPEZIL 5 MG TABLET PO SCH (08:44)
[2018-09-19] MEDS: ENTACAPONE PO SCH ×4 (08:45→21:39)
[2018-09-19] MEDS: CARBIDOPA PO SCH ×4 (08:45→21:39)
[2018-09-19] MEDS: DOXYCYCLINE HYCLATE 50 MG PO SCH ×2 (08:45→21:01)
[2018-09-19] MEDS: LEVODOPA PO SCH ×4 (08:45→21:39)
--- NOTE | 2018-09-19 12:13 | PROVIDER PROGRESS NOTE ---
Subjective - Prog Note Date Prog Note Date: 09/19/18 Prog Note Time: 08:30 - Subjective Subjective: Patient reports he does not have pain this morning. He is on 1.5L NC Denies shortness of breath. Had not had any bowel movements Reports normal bowel movements at home occur every 3-4 days He sat in the chair yesterday Current Medications - Current Medications Current Medications: Active Medications Acetaminophen (Tylenol) 650 mg PO Q6H [facility] Last Admin: 09/19/18 08:44 Dose: 650 mg Donepezil HCl (Aricept) 5 mg PO DAILY [facility] Last Admin: 09/19/18 08:44 Dose: 5 mg Heparin Sodium (Porcine) () 5,000 unit SUBQ BID [facility] Last Admin: 09/19/18 08:40 Dose: 5,000 unit Hydromorphone HCl (Dilaudid Inj Syringe) 0.5 mg IVP Q4HR PRN PRN Reason: Pain 8 to 10 Last Admin: 09/19/18 01:16 Dose: 0.5 mg Mineral Oil (Cavilon) 1 applic TOP PRN PRN PRN Reason: Skin Care Last Admin: 09/18/18 15:04 Dose: 1 applic Oxycodone HCl (Roxicodone) 5 mg PO Q4HR PRN PRN Reason: Pain 5 to 7 Last Admin: 09/19/18 06:28 Dose: 5 mg Carbidopa/Levodopa/Entacapone [Stalevo 200 Tablet] 1 Tab 1 each PO 0800,1230,1700,2130 [facility] Last Admin: 09/19/18 08:45 Dose: 1 each Doxycycline Hyclate [Doxycycline Hyclate ] 50 Mg Cap 1 each PO BID [facility] Last Admin: 09/19/18 08:45 Dose: 1 each Polyethylene Glycol (Miralax) 17 gm PO DAILY [facility] Last Admin: 09/19/18 08:44 Dose: 17 gm Senna (Senokot) 8.6 - 17.2 mg PO DAILY [facility] Last Admin: 09/19/18 08:44 Dose: 8.6 mg Sodium Chloride (Normal Saline Flush 0.9%) 10 ml IVP PRN PRN PRN Reason: NEEDED PER PROVIDER ORDERS Last Admin: 09/19/18 01:17 Dose: 10 ml Sodium Chloride (Normal Saline Flush 0.9%) 10 ml IVP 0100,0900,1700 [facility] Last Admin: 09/19/18 08:57 Dose: 10 ml Tamsulosin HCl (Flomax) 0.4 mg PO QPM [facility] Last Admin: 09/18/18 20:51 Dose: 0.4 mg Home Medications: Tamsulosin HCl [Flomax] 0.4 mg PO QPM 02/18/15 Doxycycline Hyclate 50 mg PO BID 12/28/17 Carbidopa/Levodopa/Entacapone [Stalevo 200 Tablet] 1 tab PO 0800,1230,1700,2130 09/16/18 Donepezil [Aricept] 5 mg PO DAILY 09/16/18 Objective - Vital Signs/Intake & Output Reviewed Vital Signs: Yes Vital Signs: Vital Signs x48h Temp Pulse Pulse Resp BP Pulse Ox 09/19/18 11:48 92 09/19/18 08:11 36.3 C L 60 18 97 09/19/18 08:00 36.5 C 67 12 121/55 L 94 Intake & Output: Intake & Output 09/16/18 09/17/18 09/18/18 09/19/18 23:59 23:59 23:59 23:59 Intake Total 100 1054 827 220 Output Total 100 Balance 100 1054 727 220 - Objective General Appearance: positive: No acute distress, Alert Eyes Bilateral: positive: Normal inspection, PERRL, EOMI ENT: positive: Dry mucous membranes Neck: positive: Nml inspection, Trachea midline Respiratory: positive: Chest non-tender, No respiratory distress, Breath sounds nml (Diminished bases.) Cardiovascular: positive: Regular rate & rhythm. negative: No murmur, No gallop Peripheral Pulses: 2+ Dorsalis pedis (R), 2+ Dorsalis pedis (L) Abdomen: positive: Non-tender, Nml bowel sounds, No distention Skin: positive: Warm, Dry Neurologic/Psychiatric: positive: Oriented x3, CN's nml (2-12), Sensation nml, Mood/affect nml, Weakness. negative: Motor nml - Lab Results Fish Bones: 09/18/18 09:45 09/18/18 09:45 Assessment/Plan - Problem List (1) Multiple rib fractures Impression: With uncontrolled pain in the ER. He reports that it is still difficult for him to take deep breaths. He is currently on 1.5L NC. He denies dyspnea. CXR yesterday with left pleural effusion and left basilar atelectasis. Plan: Encourage ambulation, splinting, coughing, and deep breathing. Incentive spirometer to be completed every hour while awake. Pain control with oral medication. continue scheduled tylenol s/p 3 doses of 15 mg IV toradol PT consulted RT consulted Qualifiers: Encounter type: initial encounter Fracture type: closed Laterality: left Qualified Code(s): S22.42XA - Multiple fractures of ribs, left side, initial encounter for closed fracture (2) Chest wall contusion Plan: see above Qualifiers: Encounter type: initial encounter Laterality: right Qualified Code(s): S20.211A - Contusion of right front wall of thorax, initial encounter (3) Chest wall pain Plan: see above (4) Fall from ground level Impression: Patient ambulates with walker at baseline Plan: PT consulted fall precautions. Encourage patient to ambulate with assistance during hospitalization. (5) Parkinsons Disease Impression: Patient ambulates with walker at home. With frequent falls, last prior to today's fall, roughly 1 month ago. Plan: continue home parkinsons medications. PT consulted ambulate with assistance.
[2018-09-19] MEDS: TAMSULOSIN 0.4 MG CAPSULE PO SCH (20:42)
[2018-09-20] MEDS: ACETAMINOPHEN 325 MG TABLET PO SCH ×2 (02:36→08:41)
[2018-09-20] MEDS: SODIUM CHLORIDE FLUSH 0.9% 10 ML SYRINGE IVP SCH ×2 (02:41→08:45)
[2018-09-20] MEDS: oxyCODONE 5 MG TABLET PO PRN (04:16)
[2018-09-20 08:22] VITALS: BP 107/50
[2018-09-20] MEDS: POLYETHYLENE GLYCOL 3350 17 GM PACKET PO SCH (08:41)
[2018-09-20] MEDS: HEPARIN 5,000 UNIT/ML VIAL SUBQ SCH (08:42)
[2018-09-20] MEDS: ENTACAPONE PO SCH (08:42)
[2018-09-20] MEDS: SENNA 8.6 MG TABLET PO SCH (08:42)
[2018-09-20] MEDS: DONEPEZIL 5 MG TABLET PO SCH (08:42)
[2018-09-20] MEDS: LEVODOPA PO SCH (08:42)
[2018-09-20] MEDS: CARBIDOPA PO SCH (08:42)
[2018-09-20] MEDS: DOXYCYCLINE HYCLATE 50 MG PO SCH (08:42)
--- NOTE | 2018-09-20 10:13 | DISCHARGE SUMMARY ---
Discharge Summary Admit Date: 09/16/18 Discharge Date: 09/20/18 Discharging Provider: Karen BEE Primary Care Provider: Dr. Johnnie Davila Code Status: Do Not Attempt Resuscitation Condition at Discharge: Stable Discharge Disposition: [facility] - DIAGNOSES Admission Diagnoses: (1) Multiple rib fractures (2) Chest wall contusion (3) Chest wall pain (4) Fall from ground level (5) Parkinsons Disease Discharge Diagnoses with Status of Each Condition: Multiple rib fractures, stable Hypoxia, resolved Chest wall contusion, improved Chest wall pain, improved Fall from ground level, resolved Parkinsons Disease, stable - HPI History of Present Illness: Mr. Ritchie is a 88 year old male with a past medical history of high cholesterol, chronic constipation, BPH, parkinsons, osteoarthritis and osteoporosis who presented to the ER today with his daughter, Francesca, after a mechanical ground level fall this morning when getting up from the table after breakfast. He hit his left ribs as he fell to the ground. He did not hit his head. He has a skin tear on his right elbow from the fall. He was able to stand and ambulate after the event. He uses a walker to ambulate at baseline. Per Francesca, he does not ambulate often [place] He presented to the ER due to left rib pain. Imaging completed in the ER demonstrated acute fractures of the left seventh through tenth ribs. He is being admitted for left rib fractures and pain control. Upon examination of the patient in the ER, he is laying comfortably on the bed after receiving IV morphine. He denies nausea. He reports it is painful to take a deep breath. He is incontinent at times. He denies CP. - HOSPITAL COURSE Hospital Course: Jamie was admitted to the hospital s/p fall for pain control. He had uncontrolled pain in the ER. Given his severe pain, he was unable to take deep breaths. He required IV pain medications. With his shallow breathing he developed hypoxia related to atelectasis, requiring as much as 4L NC to maintain oxygen saturations above 92%. Pain medications were changed around with improved pain control. Respiratory therapy was consulted and his oxygen was able to weaned down to room air. He was able to ambulate to the chair. Physical therapy was consulted and he was able to ambulate in the hallway prior to discharge. He was encouraged to splint with coughing and use his incentive spirometer every hour while awake. Given his history of Parkinson's disease and fall, home health PT/OT referrals were made. On the day of discharge, he was maintaining his oxygen saturations on room air, pain was controlled, and he was able to ambulate with a walker. - ALLERGIES Allergies/Adverse Reactions: Allergies Allergy/AdvReac Type Severity Reaction Status Date / Time No Known Drug Allergies Allergy Verified 09/16/18 13:21 - MEDICATIONS Home Medications: Ambulatory Orders Medication Instructions Recorded Confirmed Tamsulosin HCl [Flomax] 0.4 mg PO QPM 02/18/15 09/16/18 Doxycycline Hyclate 50 mg PO BID 12/28/17 09/16/18 Carbidopa/Levodopa/Entacapone 1 tab PO 0800,1230,1700,2130 09/16/18 09/16/18 [Stalevo 200 Tablet] Donepezil [Aricept] 5 mg PO DAILY 09/16/18 09/16/18 Acetaminophen [Tylenol] 650 mg PO Q6H tablet 09/17/18 Polyethylene Glycol 3350 [Miralax] 17 gm PO DAILY #10 packet 09/17/18 oxyCODONE [Roxicodone] 5 mg PO Q4HR PRN #25 tablet 09/17/18 - PHYSICAL EXAM AT DISCHARGE General Appearance: positive: No acute distress, Alert Eyes Bilateral: positive: Normal inspection, PERRL, EOMI ENT: positive: No signs of dehydration Neck: positive: Nml inspection, No JVD Respiratory: positive: No respiratory distress, Breath sounds nml (diminished bases), Other (minimal left chest wall tenderness) Cardiovascular: positive: Regular rate & rhythm. negative: No murmur, No gallop, Tachycardia Peripheral Pulses: positive: 2+ Abdomen: positive: Non-tender, No organomegaly, Nml bowel sounds, No distention Skin: positive: Warm, Dry Extremities: positive: Non-tender, No pedal edema Neurologic/Psychiatric: positive: Oriented x3, CN's nml (2-12), Sensation nml, Mood/affect nml, Weakness - LABS Result Diagrams: 09/18/18 09:45 09/18/18 09:45 - DIAGNOSTIC IMAGING Diagnostic Imaging Results: Final report reviewed Diagnostic Imaging Results Comments: Left Ribs 2 view Xray 09/16/2018 -- Mildly displaced fractures of the left posterior seventh, eigth, and ninth ribs. Nondisplaced fracture of posterior 10th rib. Remote healed fractures of left sided ribs Left Shoulder Xray 09/16/2018 -- No shoulder fracture appreciated CXR 09/18/2018 -- new/increased left pleural effusion and left lung atelectasis. - FOLLOW UP Follow Up: Follow-up with PCP within 7-10 day - TIME SPENT Time Spent in Discharge (Minutes): 45
--- NOTE | 2018-09-20 10:13 | Discharge Plan ---
Discharge Plan Disposition: Home Health Service Condition: Stable Prescriptions: oxyCODONE [Roxicodone] 5 mg PO Q4HR PRN #25 tablet PRN Reason: Pain Polyethylene Glycol 3350 [Miralax] 17 gm PO DAILY #10 packet Diet: Regular Activity Restrictions: No Restrictions Shower Restrictions: No Driving Restrictions: No Assistance Devices: Walker Weight Bearing: Full Weight Additional Instructions or Follow Up instructions: You were admitted to the hospital with multiple left rib fractures. You were admitted for pain control. You are being discharged with oxycodone 5 mg for pain relief. Please wean yourself off of this medication as your rib fractures heal. Oxycodone is a narcotic and narcotics cause constipation. Please be sure to take a laxative (miralax, senna, and/or colace) while you are taking a narcotic pain medication. These are available over the counter. Take tylenol around the clock for the first few days. Be sure to use your incentive spirometer every hour while you are awake to help prevent pneumonia. Hold a pillow to your left chest/side (splinting) when you need to cough to help alleviate pain felt when doing this. Continue to walk with the assistance of your walker. Follow-up with your primary care provider in 7-10 days. Follow-Up Care: Home Health - PT, Home Health - OT No Smoking: If you smoke, Please STOP! Call for help. Follow-up with: Johnnie Davila MD [Primary Care Provider] -
== END 2018-09-20 12:30 | disposition home health service (06) | DRG 185 ==
LOC: ED 12:50 → MS3 17:44 → MS2 09-17 14:32 → OBSVTOIN 09-18 14:11
PROVIDERS: ADMIT Nurse Practitioner; ATTEND Nurse Practitioner
DX: S22.42XA Multiple fractures of ribs, left side, initial encounter for closed fracture (principal); W18.30XA Fall on same level, unspecified, initial encounter; G20 Parkinson's disease; E78.00 Pure hypercholesterolemia, unspecified; G62.9 Polyneuropathy, unspecified; K59.09 Other constipation; N40.0 Benign prostatic hyperplasia without lower urinary tract symptoms; H54.7 Unspecified visual loss; M19.90 Unspecified osteoarthritis, unspecified site; F32.9 Major depressive disorder, single episode, unspecified; F41.9 Anxiety disorder, unspecified; Z66 Do not resuscitate; Z96.649 Presence of unspecified artificial hip joint; M81.0 Age-related osteoporosis without current pathological fracture; R32 Unspecified urinary incontinence
CPT/HCPCS: 36415; 71045; 80048; 85025; 96374; 96375; 99284; 99285

== ENCOUNTER 2018-09-25 10:47 | Outpatient (CLI) | payer MEDICARE | END 2018-09-25 10:48 | disposition critical access hospital (66) | LOC: EMS 10:47 | PROVIDERS: ATTEND Surgery | DX: R53.1 Weakness (principal) | CPT/HCPCS: A0425; A0429 ==

== ENCOUNTER 2018-09-25 11:05 | Inpatient (IN) | payer MEDICARE ==
--- NOTE | 2018-09-25 12:03 | ED Physician Documentation ---
History of Present Illness - Stated complaint Stated Complaint: LETHARGIC - Chief complaint Chief Complaint: Resp - History obtained from History obtained from: Patient, Family - History of Present Illness Timing: How many days ago (3) - Additonal information Additional information: 88-year-old male had a fall in his home 9 days ago and broke 4 ribs on his left side. He was admitted in the hospital for 4 days. He was discharged with an incentive spirometer and over the last 2 days he has been begin to cough up copious amounts of green phlegm and this morning he was less active than normal. The daughter notes that he seemed a little off and less responsive than normal. He has had the productive cough and weakness. She notes that he does not ever drink enough fluids. Review of Systems Constitutional: denies: Fever Eyes: denies: Decreased vision Ears: denies: Ear pain Nose: reports: Congestion Throat: denies: Sore throat Cardiac: reports: Chest pain / pressure. denies: Palpitations, Pedal edema, Calf pain Respiratory: reports: Dyspnea, Cough GI: denies: Abdominal Pain, Nausea, Vomiting : denies: Dysuria, Frequency Skin: denies: Rash Musculoskeletal: denies: Neck pain, Back pain, Extremity pain Neurologic: reports: Generalized weakness. denies: Focal weakness, Numbness PD PAST MEDICAL HISTORY - Past Medical History Cardiovascular: High cholesterol Respiratory: None Neuro: Parkinson's, Peripheral neuropathy Endocrine/Autoimmune: None GI: Chronic constipation : Benign prostate hypertrophy HEENT: Chronic vision loss Psych: Depression, Anxiety Musculoskeletal: Osteoarthritis, Osteoporosis - Past Surgical History Past Surgical History: Yes Ortho: Hip replacement HEENT: Cataracts Derm: Skin cancer surgery - Present Medications Home Medications: Ambulatory Orders Medication Instructions Recorded Confirmed Tamsulosin HCl [Flomax] 0.4 mg PO QPM 02/18/15 09/25/18 Doxycycline Hyclate 50 mg PO BID 12/28/17 09/25/18 Carbidopa/Levodopa/Entacapone 1 tab PO 0800,1230,1700,2130 09/16/18 09/25/18 [Stalevo 200 Tablet] Donepezil [Aricept] 5 mg PO DAILY 09/16/18 09/25/18 Acetaminophen [Tylenol] 650 mg PO Q6H tablet 09/17/18 09/25/18 Polyethylene Glycol 3350 [Miralax] 17 gm PO DAILY #10 packet 09/17/18 09/25/18 oxyCODONE [Roxicodone] 5 mg PO Q4HR PRN #25 tablet 09/17/18 09/25/18 - Allergies Allergies/Adverse Reactions: Allergies Allergy/AdvReac Type Severity Reaction Status Date / Time No Known Drug Allergies Allergy Verified 09/25/18 11:10 - Social History Does the pt smoke?: No Smoking Status: Never smoker Does the pt drink ETOH?: No Does the pt have substance abuse?: No - Immunizations Immunizations are current?: No Immunizations: TDAP >10years/unknown - POLST Patient has POLST: No PD ED PE NORMAL - Vitals Vital signs reviewed: Yes (hypoxia ) - General General: No acute distress, Well developed/nourished, Other (alert but with delay in execution of motor commands. There is some masked facies consistent with parkinsons. ) - HEENT HEENT: Atraumatic, PERRL, EOMI, Other (both TM's are obscurred by ceruemn. The mucous membranes are parched. ) - Neck Neck: Supple, no meningeal sign, No bony TTP - Cardiac Cardiac: RRR, No murmur - Respiratory Respiratory: No respiratory distress, Other (marked diminished breath sounds in the left base. ) - Abdomen Abdomen: Soft, Non tender - Back Back: No spinal TTP, Other (There extensive eccymosis and tenderness over the left lower lateral rib cage and over the CVA. 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, No motor deficit, No sensory deficit, Normal speech Eye Opening: Spontaneous Motor: Obeys Commands Verbal: Confused GCS Score: 14 - Psych Psych: Normal mood, Normal affect Results - Vitals Vitals: Vital Signs - 24 hr 09/25/18 09/25/18 09/25/18 11:06 11:28 13:32 Temperature 36.4 C L 36.3 C L Heart Rate 63 61 60 Respiratory 20 18 12 Rate Blood Pressure 100/62 106/55 L 111/67 O2 Saturation 90 L 95 95 09/25/18 14:53 Temperature Heart Rate 55 L Respiratory 18 Rate Blood Pressure 104/65 O2 Saturation 93 Oxygen O2 Source Room air Oxygen Flow Rate 2 - EKG (time done) 1114 Rate: Rate (enter#) (62) [place]: LAD Ischemia: Other (early transition) Compare to prior EKG: Changed from prior EKG (SPT 08-31-16 rate has slowed. ) Computer interpretation: Agree with computer - Labs Labs: Laboratory Tests 09/25/18 09/25/18 09/25/18 11:36 11:36 11:36 WBC 5.6 RBC 3.76 L Hgb 11.0 L Hct 33.0 L MCV 87.7 MCH 29.4 MCHC 33.5 RDW 14.8 Plt Count 221 MPV 8.9 Neut # (Auto) 3.7 Lymph # (Auto) 1.1 L [place]cd[place] # (Auto) 0.5 Eos # (Auto) 0.2 Baso # (Auto) 0.0 Absolute Nucleated RBC 0.01 Nucleated RBC % 0.1 Sodium 138 Potassium 4.2 Chloride 102 Carbon Dioxide 28 Anion Gap 8.0 BUN 24 H Creatinine 0.9 Estimated GFR (MDRD) 80 L Glucose 96 Lactic Acid Calcium 9.0 Total Bilirubin 1.4 H AST 23 ALT < 10 L Alkaline Phosphatase 159 H Troponin I < 0.04 Total Protein 6.7 Albumin 3.3 Globulin 3.4 Albumin/Globulin Ratio 1.0 Lipase 28 Urine Color Urine Clarity Urine pH Ur Specific [place] Urine Protein Urine Glucose (UA) Urine Ketones Urine Occult Blood Urine Nitrite Urine Bilirubin Urine Urobilinogen Ur Leukocyte Esterase Urine RBC Urine WBC Ur Squamous Epith Cells Urine Bacteria Ur Microscopic Review Urine Culture Comments 09/25/18 09/25/18 11:36 12:37 WBC RBC Hgb Hct MCV MCH MCHC RDW Plt Count MPV Neut # (Auto) Lymph # (Auto) M[place] # (Auto) Eos # (Auto) Baso # (Auto) Absolute Nucleated RBC Nucleated RBC % Sodium Potassium Chloride Carbon Dioxide Anion Gap BUN Creatinine Estimated GFR (MDRD) Glucose Lactic Acid 0.7 Calcium Total Bilirubin AST ALT Alkaline Phosphatase Troponin I Total Protein Albumin Globulin Albumin/Globulin Ratio Lipase Urine Color DARK YELLOW Urine Clarity CLEAR Urine pH 6.5 Ur Specific [place] 1.020 Urine Protein NEGATIVE Urine Glucose (UA) NEGATIVE Urine Ketones TRACE Urine Occult Blood NEGATIVE Urine Nitrite POSITIVE H Urine Bilirubin NEGATIVE Urine Urobilinogen 1 (NORMAL) Ur Leukocyte Esterase NEGATIVE Urine RBC None Seen Urine WBC 4-5 Ur Squamous Epith Cells NONE SEEN Urine Bacteria Few Ur Microscopic Review INDICATED Urine Culture Comments INDICATED - Rads (name of study) 1 veiw chest Radiology: Prelim report reviewed (Impression: Improving appearance of left pleural effusion with underlying consolidation and/or atelectasis.), EMP read indepedently, See rad report Procedures - IVC sono (time) 1200 Bedside IVC sono: IVC measures (cm) (1.02), IVC collapsed c insp (cm) (complete), Dehydration (est 1-2 liter deficit) PD MEDICAL DECISION MAKING - ED course Complexity details: reviewed old records, reviewed results, re-evaluated patient, considered differential, d/w patient, d/w family ED course: 88-year-old male had a fall in his home 9 days ago and broke 4 ribs on his left side. He was admitted in the hospital for 4 days. He was discharged with an incentive spirometer and over the last 2 days he has been begin to cough up copious amounts of green phlegm and this morning he was less active than normal. The daughter notes that he seemed a little off and less responsive than normal. He has had the productive cough and weakness. She notes that he does not ever drink enough fluids. The patient continues to have effusion on the left side on chest x-ray and he is hypoxic today. He is diagnosed with pneumonia and he will need admission to the hospital. Departure - Departure Disposition: [facility] DC/Xfer Clinical Impression: Multiple rib fractures Qualifiers: Encounter type: subsequent encounter Fracture type: closed Laterality: left Fracture healing: with routine healing Qualified Code(s): S22.42XD - Multiple fractures of ribs, left side, subsequent encounter for fracture with routine healing Pneumonia Qualifiers: Pneumonia type: due to unspecified organism Laterality: left Lung location: lower lobe of lung Qualified Code(s): J18.1 - Lobar pneumonia, unspecified organism
[2018-09-25 12:08] LABS: BASOPHILS % (AUTO) 0.8 %; EOSINOPHILS # (AUTO) 0.2 10^3/uL (0.0-0.7); EOSINOPHILS % (AUTO) 2.8 %; LYMPHOCYTES # (AUTO) 1.1 10^3/uL (1.5-3.5); LYMPHOCYTES % (AUTO) 20.6 %; MEAN CORPUSCULAR HEMOGLOBIN 29.4 pg (27.0-31.0); MEAN CORPUSCULAR HGB CONC 33.5 g/dL (32.0-36.0); MEAN CORPUSCULAR VOLUME 87.7 fL (80.0-94.0); MEAN PLATELET VOLUME 8.9 fL (7.4-11.4); MONOCYTES # (AUTO) 0.5 10^3/uL (0.0-1.0); MONOCYTES % (AUTO) 8.9 %; NEUTROPHILS # (AUTO) 3.7 10^3/uL (1.5-6.6); NEUTROPHILS % (AUTO) 66.9 %; PLT - PLATELET COUNT 221 10^3/uL (130-450); RED BLOOD COUNT 3.76 10^6/uL (4.70-6.10); RED CELL DISTRIBUTION WIDTH 14.8 % (12.0-15.0); WHITE BLOOD COUNT 5.6 x10^3/uL (4.8-10.8)
[2018-09-25 12:17] LABS: ALBUMIN 3.3 g/dL (3.2-5.5); ALKALINE PHOSPHATASE 159 IU/L (42-121); ALT ALANINE AMINOTRANSFERASE < 10 IU/L (10-60); AST ASPARTATE AMINOTRANSFERASE 23 IU/L (10-42); BILIRUBIN,TOTAL 1.4 mg/dL (0.2-1.0); BUN - BLOOD UREA NITROGEN 24 mg/dL (6-20); CARBON DIOXIDE - CO2 28 mmol/L (21-32); CHLORIDE 102 mmol/L (101-111); CREATININE 0.9 mg/dL (0.6-1.2); GFR - MDRD 80 (>89); GLUCOSE 96 mg/dL (70-100); LIPASE 28 U/L (22-51); SODIUM 138 mmol/L (135-145); TOTAL PROTEIN 6.7 g/dL (6.7-8.2)
--- NOTE | 2018-09-25 12:42 | XRAY Report ---
Reason: chest pain Procedure Date: 09/25/2018 Accession Number: [id number] / [id number] Procedure: XR - Chest 1 View X-Ray CPT Code: 59476 FULL RESULT: EXAM: CHEST RADIOGRAPHY EXAM DATE: 09/25/2018 12:30 PM. CLINICAL HISTORY: Chest pain. COMPARISON: Chest 09/18/2018. TECHNIQUE: 1 view. FINDINGS: Old right rib fractures and newer left rib fractures are again seen. There is decreased left pleural effusion and underlying consolidation and/or atelectasis compared to the prior exam. No pneumothorax. There are atherosclerotic calcifications of the thoracic aorta. Mediastinum otherwise unremarkable. IMPRESSION: Improving appearance of left pleural effusion with underlying consolidation and/or atelectasis. RADIA
[2018-09-25 12:52] LABS: BILIRUBIN,URINE NEGATIVE (NEGATIVE); GLUCOSE, URINE (UA) NEGATIVE (NEGATIVE); KETONES,URINE (UA) TRACE mg/dL (NEGATIVE); LEUKOCYTE ESTERASE, URINE NEGATIVE (NEGATIVE); NITRITE,URINE POSITIVE (NEGATIVE); OCCULT BLOOD,URINE NEGATIVE (NEGATIVE); PH,URINE 6.5 PH (5.0-7.5); PROTEIN,URINE NEGATIVE (NEGATIVE); UROBILINOGEN,URINE 1 (NORMAL) E.U./dL (NORMAL)
[2018-09-25 12:53] LABS: CLARITY,URINE CLEAR (CLEAR)
[2018-09-25 13:01] LABS: BACTERIA,URINE Few /HPF (None Seen); RBC,URINE None Seen /HPF (0-5); SQUAMOUS EPITHELIAL CELL,UR NONE SEEN (<= Few)
[2018-09-25] MEDS ORDERED: ACETAMINOPHEN 325 MG TABLET PO PRN ×2 (17:14→17:21)
[2018-09-25] MEDS ORDERED: PROCHLORPERAZINE 10 MG/2 ML VIAL IVP PRN (17:14)
[2018-09-25] MEDS ORDERED: SODIUM CHLORIDE FLUSH 0.9% 10 ML SYRINGE IVP PRN (17:14)
[2018-09-25] MEDS ORDERED: IPRATROPIUM/ALBUTEROL 3 ML NEB INH PRN (17:26)
[2018-09-25] MEDS: D5NS W/20 MEQ KCL 1,000 ML IV SCH (18:34)
[2018-09-25] MEDS: SACCHAROMYCES BOULARDII 250 MG CAPSULE PO SCH (18:40)
[2018-09-25] MEDS: TAMSULOSIN 0.4 MG CAPSULE PO SCH (21:39)
[2018-09-25] MEDS: FAMOTIDINE 20 MG TABLET PO SCH (21:39)
[2018-09-25] MEDS: AMPICILLIN/SULBACTAM 3 GM in SODIUM CHLORIDE 0.9% MINIBAG 100 ML IV SCH (23:03)
--- NOTE | 2018-09-25 23:27 | HISTORY & PHYSICAL EXAMINATION ---
DATE OF SERVICE: 09/25/2018 Physician: Isadora Garibay MD HISTORY OF PRESENT ILLNESS: This is an 88-year-old white male with a history of dementia on Aricept, BPH on Flomax and Parkinson's on Stelevo, who lives with his daughter after moving in with here from [place], and she is his caregiver. He uses a quad walker to ambulate at home but is minimally ambulatory. Patient was just here 4 days ago for a 4-day admission after he fell as he was standing up from a chair and hit his ribcage on the side of a table and suffered 4 rib fractures. He was treated with an incentive spirometer and pain medications and sent home to use the incentive spirometer every 1 hour. Over the past 2 days, he has developed a cough with copious yellow-green sputum, and the daughter noticed that he was less interactive. She reports that he has minimal liquid intake normally, so as not to be incontinent of urine in bed, since he needs help getting out of bed to urinate 1-2 times overnight. He falls often, has had three rib fracture events. Patient was brought to the emergency room due to green sputum and cough causing rib pain, and workup showed that he has an infiltrate with pleural effusion on the side of the new rib fractures, probably from atelectasis from splinting. The daughter reports that she was not dosing the narcotic pain med on a scheduled basis, which probably added to his weak effort using the Incentive Spirometer, reaching only 500cc. PAST MEDICAL HISTORY 1. Dementia. 2. Parkinson's. 3. Rib fractures 3 times from recurrent falls. 4. BPH. ALLERGIES: NONE. MEDICATIONS 1. Carbidopa/Levodopa/Entacapone (Stelevo) 1 tab 4 times a day. 2. Tylenol p.r.n. pain. 3. Oxycodone p.r.n. pain. 4. MiraLax daily. 5. Aricept 5 mg daily. 6. Tamsulosin 0.4 mg every night. FAMILY HISTORY: No inherited diseases. SOCIAL HISTORY: No alcohol use, no tobacco use, no drug use. He lives with his daughter, as described above. REVIEW OF SYSTEMS: There has been no fever. Comprehensive review of systems was performed, and the pertinent positives are listed, the rest are negative. PHYSICAL EXAMINATION GENERAL: Elderly white male. He has flat facies consistent with Parkinson's. VITAL SIGNS: Blood pressure 106/67, pulse 60 in sinus rhythm, room air saturation 91%. HEENT: Shows a flat affect. Moist oral mucosa. NECK: Without JVD or carotid bruits. CHEST: Diminished breath sounds. No wheezes or rales are heard. HEART: Sounds are normal. No murmur. ABDOMEN: Soft, nontender. No organomegaly. EXTREMITIES: No edema. NEUROLOGIC: Changes consistent with Parkinson's. LABORATORY DATA: Normal electrolytes. Normal BUN and creatinine. Normal liver tests. Troponin not detectable. Lipase normal. White blood count 5.6, hemoglobin 11, platelet count normal at 221. Urinalysis: specific gravity of 1.02, positive nitrites, and few bacteria are seen, and there are trace ketones as well. ELECTROCARDIOGRAM: Normal sinus rhythm. No acute changes. No old EKG available for comparison. IMAGING: Chest x-ray: Left pleural effusion and underlying consolidation. There are old right rib fractures that are healed and newer left rib fractures again seen. IMPRESSION/DIAGNOSES 1. Healthcare-associated pneumonia. 2. Rib fractures with subsequent pneumonia, likely from atelectasis from splinting on the site of the rib fractures. 3. Fall at home before the last admission. 4. Parkinson's. 5. Dementia. 6. Possible UTI. PLAN 1. Admit patient to a medical/surgical bed. 2. Connect to telemetry for at least 24 hours to assure there are no dysrhythmias that may correlate with the falls. 3. Increase pain management for the rib fractures using Tylenol with codeine and begin assisted incentive spirometry by respiratory therapy or, if not possible, then PEP therapy. 4. Begin Mucinex and begin IV antibiotics for coverage of healthcare-associated pneumonia, with Unasyn iv. 5. Begin Florastor while on antibiotics. 6. Obtain a sputum culture before the antibiotics are started. Blood cultures were already sent from the emergency room. 7. Follow his CBC daily. 8. Continue with his Donepezil, Stalevo and Flomax. 9. Check orthostatic VS, which may drop, as seen often in Parkinson's disease due to autonomic dysfunction. 9. Obtain a urine culture. CODE STATUS: DNR. DEEP VENOUS THROMBOSIS PROPHYLAXIS: TANNER stockings and SCDs. ATTESTATION: Patient was expected to be discharged or transferred to another facility within 96 hours: Yes. TD: 09/25/2018 17:47 MTDLeanna
[2018-09-26] MEDS: AMPICILLIN/SULBACTAM 3 GM in SODIUM CHLORIDE 0.9% MINIBAG 100 ML IV SCH ×4 (00:13→17:45)
[2018-09-26] MEDS: SODIUM CHLORIDE FLUSH 0.9% 10 ML SYRINGE IVP SCH ×3 (00:13→17:34)
[2018-09-26] MEDS: ACETAMINOPHEN/CODEINE 300 MG/30 MG TABLET PO PRN ×2 (04:48→10:18)
--- NOTE | 2018-09-26 06:11 | XRAY Report ---
Reason: f/u pneumonia after broken ribs Procedure Date: 09/26/2018 Accession Number: [id number] / [id number] Procedure: XR - Chest 1 View X-Ray CPT Code: 41535 FULL RESULT: EXAM: CHEST RADIOGRAPHY EXAM DATE: 09/26/2018 06:03 AM. CLINICAL HISTORY: F/u pneumonia after broken ribs. COMPARISON: CHEST 1 VIEW 09/25/2018 12:12 PM. TECHNIQUE: 1 view. FINDINGS: Lungs/Pleura: Increasing left effusion and basilar airspace disease. No pneumothorax. Mediastinum: Within exam limitations, the cardiomediastinal contour is normal. Other: Left rib fractures are stable. Old, healed right rib fractures are stable. IMPRESSION: Increasing left effusion and basilar airspace disease. RADIA
[2018-09-26] MEDS: guaiFENesin 600 MG TABLET PO SCH (08:01)
[2018-09-26] MEDS: D5NS W/20 MEQ KCL 1,000 ML IV SCH ×2 (08:01→22:40)
[2018-09-26] MEDS: ENTACAPONE PO SCH ×4 (08:01→20:55)
[2018-09-26] MEDS: CARBIDOPA PO SCH ×4 (08:01→20:55)
[2018-09-26] MEDS: FAMOTIDINE 20 MG TABLET PO SCH ×2 (08:01→20:55)
[2018-09-26] MEDS: DONEPEZIL 5 MG TABLET PO SCH (08:01)
[2018-09-26] MEDS: SACCHAROMYCES BOULARDII 250 MG CAPSULE PO SCH ×2 (08:01→17:33)
[2018-09-26] MEDS: LEVODOPA PO SCH ×4 (08:01→20:55)
[2018-09-26] MEDS: POLYETHYLENE GLYCOL 3350 17 GM PACKET PO SCH (08:01)
--- NOTE | 2018-09-26 09:07 | PROVIDER PROGRESS NOTE ---
Assessment/Plan - Problem List (1) HCAP (healthcare-associated pneumonia) Assessment/Plan: Sputum specimen obtained and showed GPC. Continue Unasyn iv. (2) Multiple rib fractures Qualifiers: Encounter type: subsequent encounter Fracture type: closed Laterality: left Fracture healing: with routine healing Qualified Code(s): S22.42XD - Multiple fractures of ribs, left side, subsequent encounter for fracture with routine healing Assessment/Plan: The patient was able to inspire 1600 cc on IS, by documented RT note last night. The patient also started PEP therapy. Continue pain control and IS + PEP management. (3) Fall from ground level Assessment/Plan: Orthostatic VS to be done qshift, to determine if he has autonomic dysfunction from Parkinson's. If he is orthostatic, will order Midodrine or Northera. Continue TEDS stockings. (4) Parkinsons Assessment/Plan: Continue Stalevo dosing 4 times a day. (5) Dementia Assessment/Plan: Continue Aricept. (6) BPH with urinary obstruction Assessment/Plan: Continue Flomax. The daughter reports that when his Flomax dose was higher, it dropped his BP too low. - Current Meds Current Meds: Current Medications Generic Name Dose Route Start Last Admin Trade Name Freq PRN Reason Stop Dose Admin Acetaminophen/Codeine Phosphate 1 tab 09/25/18 17:20 09/26/18 04:48 Tylenol #3 PO 1 tab Q6H PRN Administration Severe Pain Albuterol/Ipratropium 3 ml 09/25/18 17:26 09/25/18 20:11 Duoneb INH 3 ml Q4HR PRN Administration Wheezing Donepezil HCl 5 mg 09/26/18 09:00 09/26/18 08:01 Aricept PO 5 mg DAILY STIVEN Administration Famotidine 20 mg 09/25/18 21:00 09/26/18 08:01 Pepcid PO 20 mg BID STIVEN Administration Guaifenesin 600 mg 09/26/18 09:00 09/26/18 08:01 Mucinex PO 600 mg DAILY STIVEN Administration Potassium Chloride/Dextrose/Sod Cl 1,000 mls @ 80 mls/hr 09/25/18 18:00 09/26/18 08:01 IV 80 mls/hr .[id number] STIVEN Administration Ampicillin Sodium/Sulbactam 100 mls @ 200 mls/hr 09/25/18 18:00 09/26/18 06:21 Sodium 3 gm/ Sodium Chloride IV Infused Q6H STIVEN Infusion (Carbidopa/Levodopa/ 1 each 09/26/18 08:00 09/26/18 08:01 Entacapone [Stalevo PO 1 each 200 Tablet] 1 Tab) 0800,1230,1700,2130 STIVEN Administration Polyethylene Glycol 17 gm 09/26/18 09:00 09/26/18 08:01 Miralax PO Not Given DAILY STIVEN Saccharomyces Boulardii 250 mg 09/25/18 18:00 09/26/18 08:01 Florastor PO 250 mg BIDWM STIVEN Administration Sodium Chloride 10 ml 09/26/18 01:00 09/26/18 08:02 Normal Saline Flush 0.9% IVP Not Given 0100,0900,1700 STIVEN Tamsulosin HCl 0.4 mg 09/25/18 21:00 09/25/18 21:39 Flomax PO 0.4 mg QPM STIVEN Administration - Lab Result Fish Bone Diagrams: 09/25/18 11:36 09/25/18 11:36 - Additional Planning My Orders: My Active Orders 09/25/18 17:14 Activity Orders [RC] Q2HR IO [RC] IOSHIFT Initiate Bowel Care Protocol [RC] .protocol Initiate Line Care Protocol [RC] .protocol Initiate Line Care Protocol [RC] QSHIFT Initiate Personal Care Protoco [RC] .protocol Oxygen Therapy [RC] Routine Telemetry (24 Hour) [RC] Q4HR Vital Signs [RC] 0800,1600,0000 Prochlorperazine Inj [Compazine Inj] 10 mg IVP Q6HR PRN Sodium Chloride Flush 0.9% [Normal Saline Flush 0.9%] 10 ml IVP PRN PRN Code Status [OTHERS] Routine Condition of Patient [OTHERS] Routine DVT Prophylaxis [OTHERS] Routine 09/25/18 17:16 IV Insert [RC] .ONCE 09/25/18 17:17 Incentive Spirometry - RT [RC] .TID TANNER Hose and SCDs [RC] QSHIFT 09/25/18 17:20 Acetaminophen/Cod 300/30 [Tylenol #3] 1 tab PO Q6H PRN 09/25/18 17:21 Acetaminophen [Tylenol] 650 mg PO Q4HR PRN 09/25/18 17:23 Miscellaenous Nursing Order [RC] ONCE 09/25/18 17:26 Ipratropium/Albuterol [Duoneb] 3 ml INH Q4HR PRN 09/25/18 17:28 PEP [PEP Therapy] [RC] .QID 09/25/18 18:00 Ampicillin/Sulbactam [Unasyn] 3 gm Sodium Chloride 0.9% Minibag [Normal Saline 0.9% Minibag] 100 ml IV Q6H D5ns W/20 Meq KCl 1,000 ml IV 80 mls/hr Saccharomyces Boulardii [Florastor] 250 mg PO BIDWM 09/25/18 18:16 Nutrition Consult [CONS] Routine 09/25/18 20:11 RT [Nebulizer/MDI Tx.] [RC] PRN 09/25/18 21:00 Famotidine [Pepcid] 20 mg PO BID Tamsulosin [Flomax] 0.4 mg PO QPM 09/25/18 23:30 CUL, RESPIRATORY [RM] Urgent 09/25/18 Dinner Regular Diet [DIET] 09/26/18 01:00 Sodium Chloride Flush 0.9% [Normal Saline Flush 0.9%] 10 ml IVP 0100,0900,1700 09/26/18 08:00 Patient Own Med [Patient Own Medication] 1 each PO 0800,1230,1700,2130 09/26/18 08:22 Postural [Vital Signs - Orthostatic] [RC] QSHIFT 09/26/18 09:00 Donepezil [Aricept] 5 mg PO DAILY Polyethylene Glycol 3350 [Miralax] 17 gm PO DAILY guaiFENesin [Mucinex] 600 mg PO DAILY 09/27/18 05:00 BMP - BASIC METABOLIC PANEL [CHEM] DAILYLAB CBC - COMP BLD CT W/AUTO DIFF [HEME] DAILYLAB 09/27/18 09:00 Chest 1 View X-Ray [XR] DAILY 09/28/18 05:00 BMP - BASIC METABOLIC PANEL [CHEM] DAILYLAB CBC - COMP BLD CT W/AUTO DIFF [HEME] DAILYLAB 09/29/18 05:00 CBC - COMP BLD CT W/AUTO DIFF [HEME] DAILYLAB Subjective - Subjective Patient Reports: No Complaints Objective Vital Signs: Vital Signs - 24 hr 09/25/18 09/25/18 09/25/18 11:06 11:28 13:32 Temperature 36.4 C L 36.3 C L Heart Rate 63 61 60 Heart Rate [ Radial] Respiratory 20 18 12 Rate Blood Pressure 100/62 106/55 L 111/67 Blood Pressure [Left Brachial artery] O2 Saturation 90 L 95 95 09/25/18 09/25/18 09/25/18 14:53 16:45 18:19 Temperature 36.5 C 36.6 C Heart Rate 55 L 59 L Heart Rate [ 61 Radial] Respiratory 18 18 Rate Blood Pressure 104/65 106/67 Blood Pressure 132/64 H [Left Brachial artery] O2 Saturation 93 91 L 95 09/25/18 09/25/18 09/26/18 20:15 21:55 00:05 Temperature 36.5 C 36.7 C Heart Rate 64 Heart Rate [ 60 61 Radial] Respiratory 16 20 16 Rate Blood Pressure Blood Pressure 128/60 105/64 [Left Brachial artery] O2 Saturation 96 95 09/26/18 09/26/18 04:05 08:06 Temperature 36.7 C 36.6 C Heart Rate Heart Rate [ 62 57 L Radial] Respiratory 16 20 Rate Blood Pressure Blood Pressure 129/63 125/60 [Left Brachial artery] O2 Saturation 95 96 Oxygen O2 Source Nasal cannula Oxygen Flow Rate 2 I&O (Last 24 Hrs): Intake and Output Totals x24h 09/24/18 09/25/18 09/26/18 23:59 23:59 23:59 Intake Total 640 1088 Output Total 100 Balance 640 988 General: Other (Flat facies) HEENT: Mucous membr. moist/pink Neck: Supple Neuro: Other (STiff and flat facies) Cardiovascular: Regular rate Respiratory: Other (diminished) Extremities: No edema - Results Results: Laboratory Results WBC 5.6 x10^3/uL (4.8-10.8) 09/25/18 11:36 RBC 3.76 10^6/uL (4.70-6.10) L 09/25/18 11:36 Hgb 11.0 g/dL (14.0-18.0) L 09/25/18 11:36 Hct 33.0 % (42.0-52.0) L 09/25/18 11:36 MCV 87.7 fL (80.0-94.0) 09/25/18 11:36 MCH 29.4 pg (27.0-31.0) 09/25/18 11:36 MCHC 33.5 g/dL (32.0-36.0) 09/25/18 11:36 RDW 14.8 % (12.0-15.0) 09/25/18 11:36 Plt Count 221 10^3/uL (130-450) 09/25/18 11:36 MPV 8.9 fL (7.4-11.4) 09/25/18 11:36 Neut # (Auto) 3.7 10^3/uL (1.5-6.6) 09/25/18 11:36 Lymph # (Auto) 1.1 10^3/uL (1.5-3.5) L 09/25/18 11:36 [place] # (Auto) 0.5 10^3/uL (0.0-1.0) 09/25/18 11:36 Eos # (Auto) 0.2 10^3/uL (0.0-0.7) 09/25/18 11:36 Baso # (Auto) 0.0 10^3/uL (0.0-0.1) 09/25/18 11:36 Absolute Nucleated RBC 0.01 x10^3/uL 09/25/18 11:36 Nucleated RBC % 0.1 /100WBC 09/25/18 11:36 Sodium 138 mmol/L (135-145) 09/25/18 11:36 Potassium 4.2 mmol/L (3.5-5.0) 09/25/18 11:36 Chloride 102 mmol/L (101-111) 09/25/18 11:36 Carbon Dioxide 28 mmol/L (21-32) 09/25/18 11:36 Anion Gap 8.0 (6-13) 09/25/18 11:36 BUN 24 mg/dL (6-20) H 09/25/18 11:36 Creatinine 0.9 mg/dL (0.6-1.2) 09/25/18 11:36 Estimated GFR (MDRD) 80 (>89) L 09/25/18 11:36 Glucose 96 mg/dL (70-100) 09/25/18 11:36 Lactic Acid 0.7 mmol/L (0.5-2.2) 09/25/18 11:36 Calcium 9.0 mg/dL (8.5-10.3) 09/25/18 11:36 Total Bilirubin 1.4 mg/dL (0.2-1.0) H 09/25/18 11:36 AST 23 IU/L (10-42) 09/25/18 11:36 ALT < 10 IU/L (10-60) L 09/25/18 11:36 Alkaline Phosphatase 159 IU/L (42-121) H 09/25/18 11:36 Troponin I < 0.04 ng/mL (<0.49) 09/25/18 11:36 Total Protein 6.7 g/dL (6.7-8.2) 09/25/18 11:36 Albumin 3.3 g/dL (3.2-5.5) 09/25/18 11:36 Globulin 3.4 g/dL (2.1-4.2) 09/25/18 11:36 Albumin/Globulin Ratio 1.0 (1.0-2.2) 09/25/18 11:36 Lipase 28 U/L (22-51) 09/25/18 11:36 Urine Color DARK YELLOW 09/25/18 12:37 Urine Clarity CLEAR (CLEAR) 09/25/18 12:37 Urine pH 6.5 PH (5.0-7.5) 09/25/18 12:37 Ur Specific [place] 1.020 (1.002-1.030) 09/25/18 12:37 Urine Protein NEGATIVE mg/dL (NEGATIVE) 09/25/18 12:37 Urine Glucose (UA) NEGATIVE mg/dL (NEGATIVE) 09/25/18 12:37 Urine Ketones TRACE mg/dL (NEGATIVE) 09/25/18 12:37 Urine Occult Blood NEGATIVE (NEGATIVE) 09/25/18 12:37 Urine Nitrite POSITIVE (NEGATIVE) H 09/25/18 12:37 Urine Bilirubin NEGATIVE (NEGATIVE) 09/25/18 12:37 Urine Urobilinogen 1 (NORMAL) E.U./dL (NORMAL) 09/25/18 12:37 Ur Leukocyte Esterase NEGATIVE (NEGATIVE) 09/25/18 12:37 Urine RBC None Seen /HPF (0-5) 09/25/18 12:37 Urine WBC 4-5 /HPF (0-3) 09/25/18 12:37 Ur Squamous Epith Cells NONE SEEN (<= Few) 09/25/18 12:37 Urine Bacteria Few /HPF (None Seen) 09/25/18 12:37 Ur Microscopic Review INDICATED 09/25/18 12:37 Urine Culture Comments INDICATED 09/25/18 12:37
[2018-09-26] MEDS ORDERED: MIDODRINE 2.5 MG TABLET PO SCH (14:00)
[2018-09-26] MEDS: MIDODRINE 2.5 MG TABLET PO SCH (18:12)
[2018-09-26] MEDS: TAMSULOSIN 0.4 MG CAPSULE PO SCH (20:55)
[2018-09-26] MEDS ORDERED: LORazepam 2 MG/ML VIAL IVP STA (22:26)
[2018-09-26] MEDS ORDERED: MIN OIL/DIMETHICON/COCONUT OIL 92 GM TUBE TOP PRN (23:56)
[2018-09-27] MEDS: SODIUM CHLORIDE FLUSH 0.9% 10 ML SYRINGE IVP SCH ×3 (00:09→16:32)
[2018-09-27] MEDS: AMPICILLIN/SULBACTAM 3 GM in SODIUM CHLORIDE 0.9% MINIBAG 100 ML IV SCH ×4 (01:16→17:05)
[2018-09-27] MEDS ORDERED: ZOLPIDEM 5 MG TABLET PO PRN (01:31)
[2018-09-27] MEDS: ACETAMINOPHEN/CODEINE 300 MG/30 MG TABLET PO PRN ×2 (04:11→11:06)
[2018-09-27 07:36] LABS: BASOPHILS % (AUTO) 0.6 %; EOSINOPHILS # (AUTO) 0.1 10^3/uL (0.0-0.7); EOSINOPHILS % (AUTO) 1.7 %; HGB - HEMOGLOBIN 10.1 g/dL (14.0-18.0); LYMPHOCYTES % (AUTO) 15.3 %; MEAN CORPUSCULAR HEMOGLOBIN 29.7 pg (27.0-31.0); MEAN CORPUSCULAR HGB CONC 34.5 g/dL (32.0-36.0); MEAN CORPUSCULAR VOLUME 85.9 fL (80.0-94.0); MEAN PLATELET VOLUME 8.5 fL (7.4-11.4); MONOCYTES # (AUTO) 0.5 10^3/uL (0.0-1.0); MONOCYTES % (AUTO) 8.7 %; NEUTROPHILS # (AUTO) 4.6 10^3/uL (1.5-6.6); NEUTROPHILS % (AUTO) 73.7 %; PLT - PLATELET COUNT 224 10^3/uL (130-450); RED BLOOD COUNT 3.39 10^6/uL (4.70-6.10); WHITE BLOOD COUNT 6.3 x10^3/uL (4.8-10.8)
[2018-09-27 07:43] LABS: CALCIUM 8.5 mg/dL (8.5-10.3); CREATININE 0.9 mg/dL (0.6-1.2)
--- NOTE | 2018-09-27 08:15 | PROVIDER PROGRESS NOTE ---
Assessment/Plan - Problem List (1) HCAP (healthcare-associated pneumonia) Assessment/Plan: No respiratory complaints. The CXR done today shows a smaller pleural effusion (without giving any diuretic) and infiltrate under the effusion cannot be sized. The sputum culture is growing normal oropharyngeal keeley, so far. Continue empiric iv Unasyn (Day #2 today of a 7 day course planned) and continue expectoration using Mucinex. (2) Multiple rib fractures Qualifiers: Encounter type: subsequent encounter Fracture type: closed Laterality: left Fracture healing: with routine healing Qualified Code(s): S22.42XD - Multiple fractures of ribs, left side, subsequent encounter for fracture with routine healing Assessment/Plan: The narcotic pain med could be adding to confusion and weakness. Continue the lowest dose required for pain control. Continue IS and PEP management for preventing atelectasis. (3) BPH with urinary obstruction Assessment/Plan: He had a full bladder scan and a Quick was needed, inserted overnight and 800 cc of urine was immediately drained. Continue Quick. Continue Flomax. (4) Fall from ground level Assessment/Plan: These were undoubtedly from his severe orthostasis, which will be treated with Midodrine. (5) Parkinsons Assessment/Plan: It appears he has the autonomic dysfunction associated with Parkinson's, which will need treatment. Continue Stelevo (6) Orthostatic hypotension due to Parkinson's disease Assessment/Plan: Orthostatic VS checks are ordered qshift, while he is awake. Yesterday there was a documented systolic BP of 136 supine, and it dropped to 86 standing. This is a 50 point drop and confirms severe orthostasis, which is very often seen in Parkinson's patients. Midodrine was started yesterday afternoon, so he only got 2 doses yesterday. It is dosed tid with meals, so as not to dose before bedtime to not create supine HTN during sleep. (7) Autonomic dysfunction Assessment/Plan: He would benefit from Neuro eval and management. Northera (Droxydopa) would be appropriate to use, which we don't carry for inpatients, but could be started at [facility]. (8) Assessment/Plan: Will start Seroquel scheduled dose at 8 pm. The concern is that he may sleep all day, after through the night, and his po Midodrine and other meds are to be dosed during daytime hours. I will discuss what his pattern usually is with his daughter, who he lives with. Continue telemetry while adding Seroquel, watching for dysrhythmias due to p otential for QT prolongation (when used in combination with Aricept). He has a normal QTc of 413 on his baseline EKG however and no history of cardiac disease. (9) Dementia Assessment/Plan: Continue Aricept daily. Continue telemetry while adding Seroquel, watching for dysrhythmias due potential for to QT prolongation (10) Anemia Assessment/Plan: Will order B12, Folate, Iron panel and guiac stool test. - Current Meds Current Meds: Current Medications Generic Name Dose Route Start Last Admin Trade Name Freq PRN Reason Stop Dose Admin Acetaminophen/Codeine Phosphate 1 tab 09/25/18 17:20 09/27/18 04:11 Tylenol #3 PO 1 tab Q6H PRN Administration Severe Pain Albuterol/Ipratropium 3 ml 09/25/18 17:26 09/25/18 20:11 Duoneb INH 3 ml Q4HR PRN Administration Wheezing Donepezil HCl 5 mg 09/26/18 09:00 09/26/18 08:01 Aricept PO 5 mg DAILY STIVEN Administration Famotidine 20 mg 09/25/18 21:00 09/26/18 20:55 Pepcid PO 20 mg BID STIVEN Administration Guaifenesin 600 mg 09/26/18 09:00 09/26/18 08:01 Mucinex PO 600 mg DAILY STIVEN Administration Potassium Chloride/Dextrose/Sod Cl 1,000 mls @ 80 mls/hr 09/25/18 18:00 09/27/18 01:47 IV 80 mls/hr .[id number] STIVEN Infusion Ampicillin Sodium/Sulbactam 100 mls @ 200 mls/hr 09/25/18 18:00 09/27/18 07:53 Sodium 3 gm/ Sodium Chloride IV Infused Q6H STIVEN Infusion Midodrine 2.5 mg 09/26/18 18:00 09/26/18 18:12 PO 2.5 mg TIDWM STIVEN Administration Mineral Oil 1 applic 09/26/18 23:56 09/27/18 04:11 Cavilon TOP 1 applic PRN PRN Administration Skin Care (Carbidopa/Levodopa/ 1 each 09/26/18 08:00 09/26/18 20:55 Entacapone [Stalevo PO 1 each 200 Tablet] 1 Tab) 0800,1230,1700,2130 STIVEN Administration Polyethylene Glycol 17 gm 09/26/18 09:00 09/26/18 08:01 Miralax PO Not Given DAILY STIVEN Saccharomyces Boulardii 250 mg 09/25/18 18:00 09/26/18 17:33 Florastor PO 250 mg BIDWM STIVEN Administration Sodium Chloride 10 ml 09/26/18 01:00 09/27/18 00:09 Normal Saline Flush 0.9% IVP 10 ml 0100,0900,1700 STIVEN Administration Tamsulosin HCl 0.4 mg 09/25/18 21:00 09/26/18 20:55 Flomax PO 0.4 mg QPM STIVEN Administration Zolpidem Tartrate 5 mg 09/27/18 01:31 09/27/18 01:52 Ambien PO 5 mg QPM PRN Administration Insomnia - Lab Result Fish Bone Diagrams: 09/27/18 07:29 09/27/18 07:29 - Additional Planning My Orders: My Active Orders 09/26/18 08:00 Patient Own Med [Patient Own Medication] 1 each PO 0800,1230,1700,2130 09/26/18 08:22 Postural [Vital Signs - Orthostatic] [RC] QSHIFT 09/26/18 09:00 Donepezil [Aricept] 5 mg PO DAILY Polyethylene Glycol 3350 [Miralax] 17 gm PO DAILY guaiFENesin [Mucinex] 600 mg PO DAILY 09/26/18 17:42 Telemetry- [RC] Q4HR 09/26/18 18:00 Midodrine 2.5 mg PO TIDWM 09/26/18 23:56 Min Oil/Dimeth/Coconut Oil Crm [Cavilon] 1 applic TOP PRN PRN 09/27/18 09:00 Chest 1 View X-Ray [XR] DAILY 09/28/18 05:00 BMP - BASIC METABOLIC PANEL [CHEM] DAILYLAB CBC - COMP BLD CT W/AUTO DIFF [HEME] DAILYLAB 09/29/18 05:00 CBC - COMP BLD CT W/AUTO DIFF [HEME] DAILYLAB Subjective - Subjective Patient Reports: Resting Comfortably, No Complaints Nursing Reports: Other (He was up all night, was confused and disoriented.) Objective Vital Signs: Vital Signs - 24 hr 09/26/18 09/26/18 09/26/18 11:14 13:31 15:49 Temperature 36.3 C L 36.3 C L Heart Rate Heart Rate [ 57 L 57 L Radial] Heart Rate [ 57 L Sitting (After 1 Minute)] Heart Rate [ 59 L Standing (After 1 Minute)] Heart Rate [ 57 L Supine] Respiratory 16 24 Rate Blood Pressure 113/55 L 144/61 H [Left Brachial artery] Blood Pressure 101/56 L [Sitting (After 1 Minute)] Blood Pressure 118/99 H [Standing ( After 1 Minute) ] Blood Pressure 106/54 L [Supine] O2 Saturation 98 09/26/18 09/26/18 09/26/18 17:03 18:52 21:25 Temperature 36.6 C Heart Rate 62 Heart Rate [ 62 Radial] Heart Rate [ 63 Sitting (After 1 Minute)] Heart Rate [ 63 Standing (After 1 Minute)] Heart Rate [ 61 Supine] Respiratory 20 20 Rate Blood Pressure 114/57 L [Left Brachial artery] Blood Pressure 127/80 [Sitting (After 1 Minute)] Blood Pressure 86/56 L [Standing ( After 1 Minute) ] Blood Pressure 136/58 H [Supine] O2 Saturation 95 09/26/18 09/27/18 23:35 04:09 Temperature 36.6 C 36.6 C Heart Rate Heart Rate [ 64 75 Radial] Heart Rate [ Sitting (After 1 Minute)] Heart Rate [ Standing (After 1 Minute)] Heart Rate [ Supine] Respiratory 18 18 Rate Blood Pressure 123/65 130/66 [Left Brachial artery] Blood Pressure [Sitting (After 1 Minute)] Blood Pressure [Standing ( After 1 Minute) ] Blood Pressure [Supine] O2 Saturation 96 93 Oxygen O2 Source Nasal cannula Oxygen Flow Rate 2 I&O (Last 24 Hrs): Intake and Output Totals x24h 09/25/18 09/26/18 09/27/18 23:59 23:59 23:59 Intake Total 640 2588.000 458 Output Total 1180 300 Balance 640 1408.000 158 General: Alert HEENT: Mucous membr. moist/pink Neck: Supple, No JVD Neuro: Non Focal Cardiovascular: Regular rate, No murmurs Respiratory: No respiratory distress Abdomen: Soft Extremities: No edema - Results Results: Laboratory Results WBC 6.3 x10^3/uL (4.8-10.8) 09/27/18 07: RBC 3.39 10^6/uL (4.70-6.10) L 09/27/18 07: Hgb 10.1 g/dL (14.0-18.0) L 09/27/18 07: Hct 29.1 % (42.0-52.0) L 09/27/18 07: MCV 85.9 fL (80.0-94.0) 09/27/18 07: MCH 29.7 pg (27.0-31.0) 09/27/18 07: MCHC 34.5 g/dL (32.0-36.0) 09/27/18 07: RDW 15.0 % (12.0-15.0) 09/27/18 07: Plt Count 224 10^3/uL (130-450) 09/27/18 07: MPV 8.5 fL (7.4-11.4) 09/27/18 07: Neut # (Auto) 4.6 10^3/uL (1.5-6.6) 09/27/18 07: Lymph # (Auto) 1.0 10^3/uL (1.5-3.5) L 09/27/18 07:29 [place] # (Auto) 0.5 10^3/uL (0.0-1.0) 09/27/18 07: Eos # (Auto) 0.1 10^3/uL (0.0-0.7) 09/27/18 07: Baso # (Auto) 0.0 10^3/uL (0.0-0.1) 09/27/18 07: Absolute Nucleated RBC 0.00 x10^3/uL 09/27/18 07: Nucleated RBC % 0.1 /100WBC 09/27/18 07:29 Sodium 137 mmol/L (135-145) 09/27/18 07:29 Potassium 4.0 mmol/L (3.5-5.0) 09/27/18 07: Chloride 104 mmol/L (101-111) 09/27/18 07:29 Carbon Dioxide 26 mmol/L (21-32) 09/27/18 07:29 Anion Gap 7.0 (6-13) 09/27/18 07:29 BUN 15 mg/dL (6-20) 09/27/18 07:29 Creatinine 0.9 mg/dL (0.6-1.2) 09/27/18 07:29 Estimated GFR (MDRD) 80 (>89) L 09/27/18 07:29 Glucose 115 mg/dL (70-100) H 09/27/18 07:29 Lactic Acid 0.7 mmol/L (0.5-2.2) 09/25/18 11:36 Calcium 8.5 mg/dL (8.5-10.3) 09/27/18 07:29 Total Bilirubin 1.4 mg/dL (0.2-1.0) H 09/25/18 11:36 AST 23 IU/L (10-42) 09/25/18 11:36 ALT < 10 IU/L (10-60) L 09/25/18 11:36 Alkaline Phosphatase 159 IU/L (42-121) H 09/25/18 11:36 Troponin I < 0.04 ng/mL (<0.49) 09/25/18 11:36 Total Protein 6.7 g/dL (6.7-8.2) 09/25/18 11:36 Albumin 3.3 g/dL (3.2-5.5) 09/25/18 11:36 Globulin 3.4 g/dL (2.1-4.2) 09/25/18 11:36 Albumin/Globulin Ratio 1.0 (1.0-2.2) 09/25/18 11:36 Lipase 28 U/L (22-51) 09/25/18 11:36 Urine Color DARK YELLOW 09/25/18 12:37 Urine Clarity CLEAR (CLEAR) 09/25/18 12:37 Urine pH 6.5 PH (5.0-7.5) 09/25/18 12:37 Ur Specific [place] 1.020 (1.002-1.030) 09/25/18 12:37 Urine Protein NEGATIVE mg/dL (NEGATIVE) 09/25/18 12:37 Urine Glucose (UA) NEGATIVE mg/dL (NEGATIVE) 09/25/18 12:37 Urine Ketones TRACE mg/dL (NEGATIVE) 09/25/18 12:37 Urine Occult Blood NEGATIVE (NEGATIVE) 09/25/18 12:37 Urine Nitrite POSITIVE (NEGATIVE) H 09/25/18 12:37 Urine Bilirubin NEGATIVE (NEGATIVE) 09/25/18 12:37 Urine Urobilinogen 1 (NORMAL) E.U./dL (NORMAL) 09/25/18 12:37 Ur Leukocyte Esterase NEGATIVE (NEGATIVE) 09/25/18 12:37 Urine RBC None Seen /HPF (0-5) 09/25/18 12:37 Urine WBC 4-5 /HPF (0-3) 09/25/18 12:37 Ur Squamous Epith Cells NONE SEEN (<= Few) 09/25/18 12:37 Urine Bacteria Few /HPF (None Seen) 09/25/18 12:37 Ur Microscopic Review INDICATED 09/25/18 12:37 Urine Culture Comments INDICATED 09/25/18 12:37
[2018-09-27] MEDS: guaiFENesin 600 MG TABLET PO SCH (09:18)
[2018-09-27] MEDS: SACCHAROMYCES BOULARDII 250 MG CAPSULE PO SCH ×2 (09:18→16:31)
[2018-09-27] MEDS: DONEPEZIL 5 MG TABLET PO SCH (09:18)
[2018-09-27] MEDS: POLYETHYLENE GLYCOL 3350 17 GM PACKET PO SCH (09:18)
[2018-09-27] MEDS: MIDODRINE 2.5 MG TABLET PO SCH ×3 (09:18→16:32)
[2018-09-27] MEDS: FAMOTIDINE 20 MG TABLET PO SCH ×2 (09:18→20:50)
[2018-09-27] MEDS: ENTACAPONE PO SCH ×4 (09:19→20:50)
[2018-09-27] MEDS: LEVODOPA PO SCH ×4 (09:19→20:50)
[2018-09-27] MEDS: CARBIDOPA PO SCH ×4 (09:19→20:50)
--- NOTE | 2018-09-27 10:49 | XRAY Report ---
Reason: f/u pneumonia after broken ribs Procedure Date: 09/27/2018 Accession Number: [id number] / [id number] Procedure: XR - Chest 1 View X-Ray CPT Code: 27118 FULL RESULT: EXAM: CHEST RADIOGRAPHY EXAM DATE: 09/27/2018 09:35 AM. CLINICAL HISTORY: Follow-up pneumonia after broken ribs. COMPARISON: CHEST 1 VIEW 09/26/2018 5:48 AM. TECHNIQUE: 1 view. FINDINGS: Lungs/Pleura: Moderate pleural effusion on the left is decreased in size compared to 09/26/2018. Right lung is clear. No pneumothorax is identified. Mediastinum: The visualized portions of the cardiomediastinal silhouette including subtle aortic arch calcifications are stable. Other: Known displaced rib fractures are again noted. IMPRESSION: Interval decrease in size of moderate-sized left pleural effusion. Radiographically, there is no evidence of pneumonia in the aerated lung with evaluation of the lung base, of course precluded by the pleural effusion. RADIA
[2018-09-27] MEDS: D5NS W/20 MEQ KCL 1,000 ML IV SCH (11:06)
[2018-09-27] MEDS: QUEtiapine 25 MG TABLET PO SCH (20:50)
[2018-09-27] MEDS: TAMSULOSIN 0.4 MG CAPSULE PO SCH (20:50)
[2018-09-27] MEDS ORDERED: QUEtiapine 25 MG TABLET PO SCH (21:00)
[2018-09-28] MEDS: SODIUM CHLORIDE FLUSH 0.9% 10 ML SYRINGE IVP SCH ×3 (00:54→17:10)
[2018-09-28] MEDS: D5NS W/20 MEQ KCL 1,000 ML IV SCH ×2 (00:54→13:50)
[2018-09-28] MEDS: AMPICILLIN/SULBACTAM 3 GM in SODIUM CHLORIDE 0.9% MINIBAG 100 ML IV SCH ×3 (00:54→12:16)
[2018-09-28 05:53] LABS: BASOPHILS % (AUTO) 0.4 %; EOSINOPHILS # (AUTO) 0.2 10^3/uL (0.0-0.7); EOSINOPHILS % (AUTO) 2.5 %; HGB - HEMOGLOBIN 10.2 g/dL (14.0-18.0); LYMPHOCYTES % (AUTO) 15.4 %; MEAN CORPUSCULAR HEMOGLOBIN 29.7 pg (27.0-31.0); MEAN CORPUSCULAR VOLUME 87.5 fL (80.0-94.0); MEAN PLATELET VOLUME 8.6 fL (7.4-11.4); MONOCYTES # (AUTO) 0.4 10^3/uL (0.0-1.0); MONOCYTES % (AUTO) 6.6 %; NEUTROPHILS # (AUTO) 4.8 10^3/uL (1.5-6.6); NEUTROPHILS % (AUTO) 75.1 %; PLT - PLATELET COUNT 219 10^3/uL (130-450); RED BLOOD COUNT 3.43 10^6/uL (4.70-6.10); RED CELL DISTRIBUTION WIDTH 14.5 % (12.0-15.0); WHITE BLOOD COUNT 6.4 x10^3/uL (4.8-10.8)
[2018-09-28 06:13] LABS: CALCIUM 8.3 mg/dL (8.5-10.3); CREATININE 0.8 mg/dL (0.6-1.2)
[2018-09-28 06:33] LABS: FOLATE 4.03 ng/mL (5.90 - >24.8)
[2018-09-28] MEDS: guaiFENesin 600 MG TABLET PO SCH (09:29)
[2018-09-28] MEDS: MIDODRINE 2.5 MG TABLET PO SCH ×3 (09:29→17:17)
[2018-09-28] MEDS: ACETAMINOPHEN/CODEINE 300 MG/30 MG TABLET PO PRN (09:29)
[2018-09-28] MEDS: DONEPEZIL 5 MG TABLET PO SCH (09:30)
[2018-09-28] MEDS: FAMOTIDINE 20 MG TABLET PO SCH ×2 (09:30→21:49)
[2018-09-28] MEDS: SACCHAROMYCES BOULARDII 250 MG CAPSULE PO SCH ×2 (09:30→17:17)
[2018-09-28] MEDS: LEVODOPA PO SCH ×4 (09:31→21:49)
[2018-09-28] MEDS: CARBIDOPA PO SCH ×4 (09:31→21:49)
[2018-09-28] MEDS: DOCUSATE SODIUM 250 MG CAPSULE PO SCH (09:31)
[2018-09-28] MEDS: ENTACAPONE PO SCH ×4 (09:31→21:49)
[2018-09-28] MEDS: POLYETHYLENE GLYCOL 3350 17 GM PACKET PO SCH (09:31)
--- NOTE | 2018-09-28 15:42 | PROVIDER PROGRESS NOTE ---
Subjective - Prog Note Date Prog Note Date: 09/28/18 Prog Note Time: 15:42 Current Medications - Current Medications Current Medications: Active Medications Acetaminophen (Tylenol) 650 mg PO Q4HR PRN PRN Reason: Pain or Fever > 38C (100.4F) Acetaminophen/Codeine Phosphate (Tylenol #3) 1 tab PO Q6H PRN PRN Reason: Severe Pain Last Admin: 09/28/18 09:29 Dose: 1 tab Docusate Sodium (Colace 250mg Capsule) 250 - 500 mg PO DAILY [facility] Last Admin: 09/28/18 09:31 Dose: 250 mg Donepezil HCl (Aricept) 5 mg PO DAILY [facility] Last Admin: 09/28/18 09:30 Dose: 5 mg Famotidine (Pepcid) 20 mg PO BID [facility] Last Admin: 09/28/18 09:30 Dose: 20 mg Guaifenesin (Mucinex) 600 mg PO DAILY [facility] Last Admin: 09/28/18 09:29 Dose: 600 mg Potassium Chloride/Dextrose/Sod Cl () 1,000 mls @ 80 mls/hr IV .[id number] [facility] Last Admin: 09/28/18 13:50 Dose: Not Given Ampicillin Sodium/Sulbactam (Sodium 3 gm/ Sodium Chloride) 100 mls @ 200 mls/hr IV Q6H [facility] Last Infusion: 09/28/18 13:02 Dose: Infused Midodrine () 5 mg PO TIDWM [facility] Last Admin: 09/28/18 12:16 Dose: 5 mg Mineral Oil (Cavilon) 1 applic TOP PRN PRN PRN Reason: Skin Care Last Admin: 09/27/18 04:11 Dose: 1 applic (Carbidopa/Levodopa/Entacapone [Stalevo 200 Tablet] 1 Tab) 1 each PO 0800,1230,1700,2130 [facility] Last Admin: 09/28/18 12:15 Dose: 1 each Polyethylene Glycol (Miralax) 17 gm PO DAILY [facility] Last Admin: 09/28/18 09:31 Dose: 17 gm Prochlorperazine Edisylate (Compazine Inj) 10 mg IVP Q6HR PRN PRN Reason: Nausea / Vomiting Quetiapine Fumarate (Seroquel) 25 mg PO 2000 [facility] Last Admin: 09/27/18 20:50 Dose: 25 mg Saccharomyces Boulardii (Florastor) 250 mg PO BIDWM [facility] Last Admin: 09/28/18 09:30 Dose: 250 mg Sodium Chloride (Normal Saline Flush 0.9%) 10 ml IVP PRN PRN PRN Reason: NEEDED PER PROVIDER ORDERS Last Admin: 09/27/18 17:05 Dose: 10 ml Sodium Chloride (Normal Saline Flush 0.9%) 10 ml IVP 0100,0900,1700 [facility] Last Admin: 09/28/18 08:23 Dose: Not Given Tamsulosin HCl (Flomax) 0.4 mg PO QPM [facility] Last Admin: 09/27/18 20:50 Dose: 0.4 mg Zolpidem Tartrate (Ambien) 5 mg PO QPM PRN PRN Reason: Insomnia Last Admin: 09/27/18 01:52 Dose: 5 mg Tamsulosin HCl [Flomax] 0.4 mg PO QPM 02/18/15 Carbidopa/Levodopa/Entacapone [Stalevo 200 Tablet] 1 tab PO 0800,1230,1700,2130 09/16/18 Donepezil [Aricept] 5 mg PO DAILY 09/16/18 Objective - Vital Signs/Intake & Output Reviewed Vital Signs: Yes Vital Signs: Vital Signs x48h Temp Pulse Pulse Pulse Pulse Pulse Pulse 09/28/18 15:30 37.0 C 66 09/28/18 12:40 36.7 C 63 09/28/18 10:20 81 62 65 09/28/18 08:31 76 76 09/28/18 08:30 36.4 C L 70 Pulse Resp BP BP BP BP BP 09/28/18 15:30 18 107/61 09/28/18 12:40 16 100/55 L 09/28/18 10:20 113/63 96/49 L 09/28/18 08:31 70 112/59 L 86/40 L 09/28/18 08:30 16 105/58 L BP BP Pulse Ox 09/28/18 15:30 94 09/28/18 12:40 100 09/28/18 10:20 115/63 09/28/18 08:31 105/58 L 09/28/18 08:30 97 Intake & Output: Intake & Output 09/25/18 09/26/18 09/27/18 02/19/19 23:59 23:59 23:59 23:59 Intake Total 640 2588.000 3012.000 2347.333 Output Total 1180 850 700 Balance 640 4719.676 8824.000 1647.333 - Objective General Appearance: positive: No acute distress, Alert, Other (sleepy, but wakes easily and able to get up into chair very, very slowly) Eyes Bilateral: positive: PERRL ENT: positive: Pharynx nml Neck: positive: No JVD - Lab Results Fish Bones: 09/28/18 05:21 09/28/18 05:21 Other Labs: Lab Results x24hrs 09/28/18 09/28/18 09/28/18 Range/Units 05:21 05:21 05:21 WBC 6.4 (4.8-10.8) x10^3/uL RBC 3.43 L (4.70-6.10) 10^6/uL Hgb 10.2 L (14.0-18.0) g/dL Hct 30.1 L (42.0-52.0) % MCV 87.5 (80.0-94.0) fL MCH 29.7 (27.0-31.0) pg MCHC 34.0 (32.0-36.0) g/dL RDW 14.5 (12.0-15.0) % Plt Count 219 (130-450) 10^3/uL MPV 8.6 (7.4-11.4) fL Neut # (Auto) 4.8 (1.5-6.6) 10^3/uL Lymph # (Auto) 1.0 L (1.5-3.5) 10^3/uL [place] # (Auto) 0.4 (0.0-1.0) 10^3/uL Eos # (Auto) 0.2 (0.0-0.7) 10^3/uL Baso # (Auto) 0.0 (0.0-0.1) 10^3/uL Absolute Nucleated RBC 0.00 x10^3/uL Nucleated RBC % 0.0 /100WBC Sodium 134 L (135-145) mmol/L Potassium 3.9 (3.5-5.0) mmol/L Chloride 101 (101-111) mmol/L Carbon Dioxide 28 (21-32) mmol/L Anion Gap 5.0 L (6-13) BUN 12 (6-20) mg/dL Creatinine 0.8 (0.6-1.2) mg/dL Estimated GFR (MDRD) 91 (>89) Glucose 108 H (70-100) mg/dL Calcium 8.3 L (8.5-10.3) mg/dL Iron 34 L (45-182) ug/dL TIBC 190 L (250-450) ug/dL % Saturation 18 L (20-50) % Transferrin 136 L (180-329) mg/dL Vitamin B12 176 L (180-914) pg/mL Folate 4.03 L (5.90 - >24.8) ng/mL Assessment/Plan - Problem List (1) HCAP (healthcare-associated pneumonia) Impression: No respiratory complaints. The CXR done 09/27 shows a smaller pleural effusion (without giving any diuretic) and infiltrate under the effusion cannot be sized. The sputum culture is growing normal oropharyngeal keeley, so far. Continue empiric iv Unasyn (Day #3 today of a 7 day course planned) and continue expectoration using Mucinex. (2) Multiple rib fractures, present on admission Qualifiers: Encounter type: subsequent encounter Fracture type: closed Laterality: left Fracture healing: with routine healing Qualified Code(s): S22.42XD - Mu ltiple fractures of ribs, left side, subsequent encounter for fracture with routine healing Assessment/Plan: The narcotic pain med could be adding to confusion and weakness. Continue the lowest dose required for pain control. Continue IS and PEP management for preventing atelectasis. (3) BPH with urinary obstruction Assessment/Plan: He had a full bladder scan and a Quick was needed, inserted 09/27 powered bridge specialist and 800 cc of urine was immediately drained. Continue Quick. Continue Flomax. (4) Fall from ground level prior to admission Assessment/Plan: These were undoubtedly from his severe orthostasis, which will be treated with Midodrine. (5) Parkinsons Assessment/Plan: It appears he has the autonomic dysfunction associated with Parkinson's, which will need treatment. Continue Stelevo PT evaluation ordered for today.He has had a precipitous drop in functionality. Willing to assess to see if he is a candidate for sniff rehab. Discussed with his daughter and he. He is amenable to this. But he wants me to reassure him that he can go back to his daughters. Daughter states that she is going to be taking care of him and does not want permanent placement to reassure him. (6) Orthostatic hypotension due to Parkinson's disease Assessment/Plan: BP confirms severe orthostasis, which is very often seen in Parkinson's patients. Midodrine was started 09/26 afternoon, so he only got 2 doses 09/26. It is dosed tid with meals, so as not to dose before bedtime to not create supine HTN during sleep. Got full 3 doses 09/27. Today:Supine blood pressure is 105/58, sitting blood pressure is 112/59, and standing blood pressure is 86/40. (7) Autonomic dysfunction Assessment/Plan: He would benefit from Neuro eval and management. Northera (Droxydopa) would be appropriate to use, which we don't carry for inpatients, but could be started at [facility]. (8) ing Assessment/Plan: Will start Seroquel scheduled dose at 8 pm. The concern is that he may sleep all day, after Sundowning through the night, and his po Midodrine and other meds are to be dosed during daytime hours. I will discuss what his pattern usually is with his daughter, who he lives with. On telemetry while adding Seroquel, watching for dysrhythmias due to potential for QT prolongation (when used in combination with Aricept). He has a normal QTc of 413 on his baseline EKG however and no history of cardiac disease. (9) Dementia Assessment/Plan: Continue Aricept daily. Continue telemetry while adding Seroquel, watching for dysrhythmias due potential for to QT prolongation (10) Anemia Assessment/Plan: Laboratory Tests 09/28/18 09/28/18 05:21 05:21 Iron 34 L TIBC 190 L % Saturation 18 L Transferrin 136 L Vitamin B12 176 L Folate 4.03 L start oral iron and SQ B12.
[2018-09-28] MEDS: QUEtiapine 25 MG TABLET PO SCH (19:25)
[2018-09-28] MEDS: AMOX/CLAV 875 MG/125 MG TABLET PO SCH (21:49)
[2018-09-28] MEDS: TAMSULOSIN 0.4 MG CAPSULE PO SCH (21:49)
[2018-09-29] MEDS: SODIUM CHLORIDE FLUSH 0.9% 10 ML SYRINGE IVP SCH ×3 (01:02→17:44)
[2018-09-29 05:37] LABS: BASOPHILS % (AUTO) 0.2 %; EOSINOPHILS # (AUTO) 0.2 10^3/uL (0.0-0.7); HGB - HEMOGLOBIN 9.9 g/dL (14.0-18.0); LYMPHOCYTES # (AUTO) 1.5 10^3/uL (1.5-3.5); LYMPHOCYTES % (AUTO) 22.1 %; MEAN CORPUSCULAR HEMOGLOBIN 29.6 pg (27.0-31.0); MEAN CORPUSCULAR HGB CONC 33.6 g/dL (32.0-36.0); MEAN CORPUSCULAR VOLUME 88.1 fL (80.0-94.0); MEAN PLATELET VOLUME 8.4 fL (7.4-11.4); MONOCYTES # (AUTO) 0.5 10^3/uL (0.0-1.0); MONOCYTES % (AUTO) 6.7 %; NEUTROPHILS # (AUTO) 4.6 10^3/uL (1.5-6.6); PLT - PLATELET COUNT 243 10^3/uL (130-450); RED BLOOD COUNT 3.35 10^6/uL (4.70-6.10); RED CELL DISTRIBUTION WIDTH 14.8 % (12.0-15.0); WHITE BLOOD COUNT 6.8 x10^3/uL (4.8-10.8)
[2018-09-29] MEDS: MIDODRINE 2.5 MG TABLET PO SCH ×3 (08:36→17:43)
[2018-09-29] MEDS: AMOX/CLAV 875 MG/125 MG TABLET PO SCH ×2 (08:36→21:27)
[2018-09-29] MEDS: guaiFENesin 600 MG TABLET PO SCH (08:37)
[2018-09-29] MEDS: LEVODOPA PO SCH ×4 (08:37→21:27)
[2018-09-29] MEDS: DOCUSATE SODIUM 250 MG CAPSULE PO SCH (08:37)
[2018-09-29] MEDS: FAMOTIDINE 20 MG TABLET PO SCH ×2 (08:37→21:27)
[2018-09-29] MEDS: SACCHAROMYCES BOULARDII 250 MG CAPSULE PO SCH ×2 (08:37→17:44)
[2018-09-29] MEDS: ENTACAPONE PO SCH ×4 (08:37→21:27)
[2018-09-29] MEDS: CARBIDOPA PO SCH ×4 (08:37→21:27)
[2018-09-29] MEDS: DONEPEZIL 5 MG TABLET PO SCH (08:37)
[2018-09-29] MEDS: POLYETHYLENE GLYCOL 3350 17 GM PACKET PO SCH (08:41)
--- NOTE | 2018-09-29 11:00 | Discharge Plan ---
"Discharge Plan for SNF / [facility] - Discharge Plan And Transition Orders Disposition: 03 SNF DC/Xfer Condition: Good Allergies and Adverse Reactions: Allergies Allergy/AdvReac Type Severity Reaction Status Date / Time No Known Drug Allergies Allergy Verified 09/25/18 11:10 - SNF / [facility] Transition Orders Admit to (Facility): [facility] Discharge Diagnosis: 1. Left lower lobe pneumonia with negative blood cultures and negative respiratory keeley culture 2. Dementia with psychotic behavior, well controlled w seroquel daily 3. Parkinsonism 4. Deconditioning from illness 5. Orthostatic hypotension 6. Falls at home 7. Rib fractures Medicare Certification Statement: I certify that [facility] care is medically necessary on a continuing basis for any of the conditions for which she/he is receiving care during hospitalization. Notify PCP of admission and forward orders to primary provider for signature. Weight on admission and: Monthly Other Notification Orders: Call PCP immediately if patient develops dyspnea, chest pain/tightness or edema. House Bowel Program: Yes Additional Bowel Program Orders: If no BM after 2 days, nurse may give M.O.M. 30ml PO PRN and/or ducolax Supp 1 AK and/or BASSEM 250mg P.O., and/or senna 1-2 tabs PO. On day 3 nurse may give repeat above order until residents constipation is resolved. Annual Influenza Vaccine (between Apr 10 and November 07): Yes Two-step PPD per [facility] [phone] or approved exception documents: Yes Medication Orders: PLEASE REFER TO THE DISCHARGE MEDICATION LIST. Insulin Orders?: No - Medications New Prescriptions: oxyCODONE [Roxicodone] 5 mg PO Q4HR PRN #30 tablet PRN Reason: Pain L.acid/L.casei/B.bif/B.ciaran/Fos [Probiotic Blend Capsule] 1 each PO BID #14 capsule - Diet Type: Geriatric Texture: Regular Liquids: Thin May have monthly special meal: Yes - Therapies | Activity Therapy: Evaluation | Treat if indicated: PT, OT Rehabilitation Potential: Maximize functional status, Return to independent living Activity: Activity as Tolerated Weight Bearing: Full Weight Assistance Devices: Walker Additional Instructions: He was admitted earlier this month for orthostatic hypotension and falls resulting in rib fractures. Stabilized, pain managed, sent home. Returned with fever, cough productive of green phlegm. Found to have a left lower lobe infiltrate. Still has orthostatic hypotension. On Midrin. Both illnesses have resulted in weakness. Now needs some rehab to get back home to independent living. He lives with his daughter and she takes care of him. Follow Up: Please see PCP Dr. Davila after discharge."
[2018-09-29] MEDS ORDERED: CYANOCOBALAMIN 1,000 MCG/ML VIAL IM ONE (19:11)
[2018-09-29] MEDS ORDERED: IRON SUCROSE 200 MG in SODIUM CHLORIDE 0.9% 100ML 100 ML IV ONE (19:11)
[2018-09-29] MEDS: QUEtiapine 25 MG TABLET PO SCH (21:27)
[2018-09-29] MEDS: FERROUS GLUCONATE 324 MG TABLET PO SCH (21:27)
[2018-09-29] MEDS: TAMSULOSIN 0.4 MG CAPSULE PO SCH (21:27)
--- NOTE | 2018-09-29 21:31 | PROVIDER PROGRESS NOTE ---
Subjective - Prog Note Date Prog Note Date: 09/29/18 Prog Note Time: 17:00 Current Medications - Current Medications Current Medications: Active Medications Acetaminophen (Tylenol) 650 mg PO Q4HR PRN PRN Reason: Pain or Fever > 38C (100.4F) Acetaminophen/Codeine Phosphate (Tylenol #3) 1 tab PO Q6H PRN PRN Reason: Severe Pain Last Admin: 09/28/18 09:29 Dose: 1 tab Amoxicillin/Clavulanate Potassium (Augmentin 875/125) 1 tab PO BID [facility] Last Admin: 09/29/18 21:27 Dose: 1 tab Docusate Sodium (Colace 250mg Capsule) 250 - 500 mg PO DAILY [facility] Last Admin: 09/29/18 08:37 Dose: 250 mg Donepezil HCl (Aricept) 5 mg PO DAILY [facility] Last Admin: 09/29/18 08:37 Dose: 5 mg Famotidine (Pepcid) 20 mg PO BID [facility] Last Admin: 09/29/18 21:27 Dose: 20 mg Ferrous Gluconate (Fergon) 324 mg PO DAILYWM [facility] Last Admin: 09/29/18 21:27 Dose: 324 mg Guaifenesin (Mucinex) 600 mg PO DAILY [facility] Last Admin: 09/29/18 08:37 Dose: 600 mg Midodrine () 5 mg PO TIDWM [facility] Last Admin: 09/29/18 17:43 Dose: 5 mg Mineral Oil (Cavilon) 1 applic TOP PRN PRN PRN Reason: Skin Care Last Admin: 09/27/18 04:11 Dose: 1 applic (Carbidopa/Levodopa/Entacapone [Stalevo 200 Tablet] 1 Tab) 1 each PO 0800,1230,1700,2130 [facility] Last Admin: 09/29/18 21:27 Dose: 1 each Polyethylene Glycol (Miralax) 17 gm PO DAILY [facility] Last Admin: 09/29/18 08:41 Dose: Not Given Quetiapine Fumarate (Seroquel) 25 mg PO 2000 [facility] Last Admin: 09/29/18 21:27 Dose: 25 mg Saccharomyces Boulardii (Florastor) 250 mg PO BIDWM [facility] Last Admin: 09/29/18 17:44 Dose: 250 mg Sodium Chloride (Normal Saline Flush 0.9%) 10 ml IVP PRN PRN PRN Reason: NEEDED PER PROVIDER ORDERS Last Admin: 09/27/18 17:05 Dose: 10 ml Sodium Chloride (Normal Saline Flush 0.9%) 10 ml IVP 0100,0900,1700 [facility] Last Admin: 09/29/18 17:44 Dose: Not Given Tamsulosin HCl (Flomax) 0.4 mg PO QPM [facility] Last Admin: 09/29/18 21:27 Dose: 0.4 mg Zolpidem Tartrate (Ambien) 5 mg PO QPM PRN PRN Reason: Insomnia Last Admin: 09/27/18 01:52 Dose: 5 mg Tamsulosin HCl [Flomax] 0.4 mg PO QPM 02/18/15 Donepezil [Aricept] 5 mg PO DAILY 09/16/18 Objective - Vital Signs/Intake & Output Vital Signs: Vital Signs x48h Temp Pulse Pulse Pulse Pulse Resp BP 09/29/18 21:07 63 64 66 09/29/18 18:00 64 67 70 09/29/18 15:54 36.2 C L 54 L 16 98/52 L BP BP BP Pulse Ox 09/29/18 21:07 123/60 97/46 L 112/61 09/29/18 18:00 98/44 L 99/45 L 135/63 H 09/29/18 15:54 94 Intake & Output: Intake & Output 09/26/18 09/27/18 09/28/18 09/29/18 23:59 23:59 23:59 23:59 Intake Total 2588.000 3012.000 2547.333 590 Output Total 1180 003 363 2121 Balance 7967.338 0512.000 1597.333 -610 - Objective General Appearance: positive: No acute distress, Alert, Other (Tall, slow-moving elderly gentleman with barely present resting pain rolling tremors of his hands. Smiles. Remembers my name.) Eyes Bilateral: positive: PERRL, EOMI ENT: positive: No signs of dehydration Neck: positive: No JVD. negative: Stiff neck Respiratory: positive: Chest non-tender, Rhonchi (Occasional that clears with a cough. Present mainly on the left side). negative: Wheezes, Rales Cardiovascular: positive: Regular rate & rhythm. negative: Gallop/S4, Friction rub Abdomen: positive: Non-tender, No organomegaly, Nml bowel sounds, No distention Skin: positive: Warm, Dry Extremities: positive: No pedal edema Neurologic/Psychiatric: positive: Oriented x3, CN's nml (2-12), Weakness. negative: Motor nml (Cogwheel rigidity, stiff movement, very tentative. Bradyki nesia. Masked facies. But does smile spontaneously and is alert and cooperative.) - Lab Results Fish Bones: 09/29/18 05:15 09/28/18 05:21 Other Labs: Lab Results x24hrs 09/29/18 Range/Units 05:15 WBC 6.8 (4.8-10.8) x10^3/uL RBC 3.35 L (4.70-6.10) 10^6/uL Hgb 9.9 L (14.0-18.0) g/dL Hct 29.6 L (42.0-52.0) % MCV 88.1 (80.0-94.0) fL MCH 29.6 (27.0-31.0) pg MCHC 33.6 (32.0-36.0) g/dL RDW 14.8 (12.0-15.0) % Plt Count 243 (130-450) 10^3/uL MPV 8.4 (7.4-11.4) fL Neut # (Auto) 4.6 (1.5-6.6) 10^3/uL Lymph # (Auto) 1.5 (1.5-3.5) 10^3/uL [place] # (Auto) 0.5 (0.0-1.0) 10^3/uL Eos # (Auto) 0.2 (0.0-0.7) 10^3/uL Baso # (Auto) 0.0 (0.0-0.1) 10^3/uL Absolute Nucleated RBC 0.00 x10^3/uL Nucleated RBC % 0.0 /100WBC ABX Reporting Has patient been on IV antibiotics over the past 48 hours?: Yes Assessment/Plan - Problem List (1) HCAP (healthcare-associated pneumonia) Impression: No respiratory complaints. The CXR done 09/27 shows a smaller pleural effusion (without giving any diuretic) and infiltrate under the effusion cannot be sized. The sputum culture is growing normal oropharyngeal keeley, so far. Continued on empiric iv Unasyn (Day #4 today of a 7 day course planned) and continue expectoration using Mucinex. He lost his IV yesterday afternoon. I started him on Augmentin 875/125 mg p.o. twice daily. Anticipating him needing 3 more days to complete therapy. (2) Multiple rib fractures, present on admission Qualifiers: Encounter type: subsequent encounter Fracture type: closed Laterality: left Fracture healing: with routine healing Qualified Code(s): S22.42XD - Multiple fractures of ribs, left side, subsequent encounter for fracture with routine healing Assessment/Plan: The narcotic pain med could be adding to confusion and weakness. Continue the lowest dose required for pain control. Continue IS and PEP management for preventing atelectasis. 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 Continue Quick. Continue Flomax. (4) Fall from ground level prior to admission Assessment/Plan: These were undoubtedly from his severe orthostasis, which will be treated with Midodrine. (5) Parkinsons Assessment/Plan: It appears he has the autonomic dysfunction associated with Parkinson's, which will need treatment. Continue Stelevo PT evaluation ordered 09/28. He has had a precipitous drop in functionality. Willing to assess to see if he is a candidate for sniff rehab. Discussed with his daughter and he. He is amenable to this. But he wants me to reassure him that he can go back to his daughters. Daughter states that she is going to be taking care of him and does not want permanent placement to reassure him.Physical therapy does feel that he is a candidate for rehab and would benefit from strengthening exercises. We did attempt to find a bed. We did [facility] papers yesterday to [facility] Today [facility] would [facility] him but they are negotiating with [facility]. He should be discharged today. (6) Orthostatic hypotension due to Parkinson's disease Assessment/Plan: BP confirms severe orthostasis, which is very often seen in Parkinson's patients. Midodrine was started 09/26 afternoon, so he only got 2 doses 09/26. It is dosed tid with meals, so as not to dose before bedtime to not create supine HTN during sleep. Got full 3 doses 09/27. 09/28: Supine blood pressure is 105/58, sitting blood pressure is 112/59, and standing blood pressure is 86/40. Today his supine blood pressure is 135/63. Sitting he is 98/44. Standing he is 99/45. So he still has significant orthostatic hypotension. He was still able to work with physical therapy. But physical therapy is worried about him passing out on them and does not really want to send him up for too long. (7) Autonomic dysfunction Assessment/Plan: He would benefit from Neuro eval and management. Northera (Droxydopa) would be appropriate to use, which we don't carry for inpatients, but could be started at [facility]. (8) Sundowning Assessment/Plan: Started on Seroquel scheduled dose at 8 pm. The concern is that he may sleep all day, after owning through the night, and his po Midodrine and other meds are to be dosed during daytime hours. I will discuss what his pattern usually is with his daughter, who he lives with. On telemetry while adding Seroquel, watching for dysrhythmias due to potential for QT prolongation (when used in combination with Aricept). He has a normal QTc of 413 on his baseline EKG however and no history of cardiac disease.I will stop telemetry today (9) Dementia Assessment/Plan: Continue Aricept daily. telemetry while adding Seroquel, watching for dysrhythmias due potential for to QT prolongation. None after 48 hours. Stop telemetry. (10) Anemia Assessment/Plan: Laboratory Tests 09/28/18 09/28/18 05:21 05:21 Iron 34 L TIBC 190 L % Saturation 18 L Transferrin 136 L Vitamin B12 176 L Folate 4.03 L started oral iron and SQ B12.
[2018-09-30] MEDS: SODIUM CHLORIDE FLUSH 0.9% 10 ML SYRINGE IVP SCH ×4 (01:02→23:41)
[2018-09-30] MEDS ORDERED: CYANOCOBALAMIN 1,000 MCG/ML VIAL IM ONE (08:40)
[2018-09-30] MEDS: guaiFENesin 600 MG TABLET PO SCH (09:06)
[2018-09-30] MEDS: AMOX/CLAV 875 MG/125 MG TABLET PO SCH ×2 (09:06→20:47)
[2018-09-30] MEDS: MIDODRINE 2.5 MG TABLET PO SCH ×3 (09:06→17:17)
[2018-09-30] MEDS: DONEPEZIL 5 MG TABLET PO SCH (09:06)
[2018-09-30] MEDS: SACCHAROMYCES BOULARDII 250 MG CAPSULE PO SCH ×2 (09:06→17:17)
[2018-09-30] MEDS: FAMOTIDINE 20 MG TABLET PO SCH ×2 (09:06→20:47)
[2018-09-30] MEDS: FERROUS GLUCONATE 324 MG TABLET PO SCH (09:06)
[2018-09-30] MEDS: CARBIDOPA PO SCH ×4 (09:07→20:47)
[2018-09-30] MEDS: POLYETHYLENE GLYCOL 3350 17 GM PACKET PO SCH (09:07)
[2018-09-30] MEDS: LEVODOPA PO SCH ×4 (09:07→20:47)
[2018-09-30] MEDS: DOCUSATE SODIUM 250 MG CAPSULE PO SCH (09:07)
[2018-09-30] MEDS: ENTACAPONE PO SCH ×4 (09:07→20:47)
--- NOTE | 2018-09-30 15:36 | PROVIDER PROGRESS NOTE ---
Subjective - Prog Note Date Prog Note Date: 09/30/18 Prog Note Time: 15:36 - Subjective Subjective: [facility] Which is waiting for [employer] to agree. In the meantime he is working with physical therapy. He is cooperative. Eating. He is better than he was on admission but still slow to move. Current Medications - Current Medications Current Medications: Active Medications Acetaminophen (Tylenol) 650 mg PO Q4HR PRN PRN Reason: Pain or Fever > 38C (100.4F) Acetaminophen/Codeine Phosphate (Tylenol #3) 1 tab PO Q6H PRN PRN Reason: Severe Pain Last Admin: 09/28/18 09:29 Dose: 1 tab Amoxicillin/Clavulanate Potassium (Augmentin 875/125) 1 tab PO BID [facility] Last Admin: 09/30/18 09:06 Dose: 1 tab Docusate Sodium (Colace 250mg Capsule) 250 - 500 mg PO DAILY [facility] Last Admin: 09/30/18 09:07 Dose: Not Given Donepezil HCl (Aricept) 5 mg PO DAILY [facility] Last Admin: 09/30/18 09:06 Dose: 5 mg Famotidine (Pepcid) 20 mg PO BID [facility] Last Admin: 09/30/18 09:06 Dose: 20 mg Ferrous Gluconate (Fergon) 324 mg PO DAILYWM [facility] Last Admin: 09/30/18 09:06 Dose: 324 mg Guaifenesin (Mucinex) 600 mg PO DAILY [facility] Last Admin: 09/30/18 09:06 Dose: 600 mg Midodrine () 5 mg PO TIDWM [facility] Last Admin: 09/30/18 12:09 Dose: 5 mg Mineral Oil (Cavilon) 1 applic TOP PRN PRN PRN Reason: Skin Care Last Admin: 09/27/18 04:11 Dose: 1 applic (Carbidopa/Levodopa/Entacapone [Stalevo 200 Tablet] 1 Tab) 1 each PO 0800,1230,1700,2130 [facility] Last Admin: 09/30/18 12:09 Dose: 1 each Polyethylene Glycol (Miralax) 17 gm PO DAILY [facility] Last Admin: 09/30/18 09:07 Dose: Not Given Quetiapine Fumarate (Seroquel) 25 mg PO 2000 [facility] Last Admin: 09/29/18 21:27 Dose: 25 mg Saccharomyces Boulardii (Florastor) 250 mg PO BIDWM [facility] Last Admin: 09/30/18 09:06 Dose: 250 mg Sodium Chloride (Normal Saline Flush 0.9%) 10 ml IVP PRN PRN PRN Reason: NEEDED PER PROVIDER ORDERS Last Admin: 09/27/18 17:05 Dose: 10 ml Sodium Chloride (Normal Saline Flush 0.9%) 10 ml IVP 0100,0900,1700 [facility] Last Admin: 09/30/18 09:07 Dose: Not Given Tamsulosin HCl (Flomax) 0.4 mg PO QPM [facility] Last Admin: 09/29/18 21:27 Dose: 0.4 mg Zolpidem Tartrate (Ambien) 5 mg PO QPM PRN PRN Reason: Insomnia Last Admin: 09/27/18 01:52 Dose: 5 mg Tamsulosin HCl [Flomax] 0.4 mg PO QPM 02/18/15 Donepezil [Aricept] 5 mg PO DAILY 09/16/18 Objective - Vital Signs/Intake & Output Reviewed Vital Signs: Yes Vital Signs: Vital Signs x48h Temp Pulse Pulse Pulse Pulse Resp BP 09/30/18 08:08 36.3 C L 59 L 16 137/59 H 09/30/18 08:07 70 72 59 L BP BP BP Pulse Ox 09/30/18 08:08 96 09/30/18 08:07 151/109 H 98/56 L 137/59 H Intake & Output: Intake & Output 09/27/18 09/28/18 09/29/18 09/30/18 23:59 23:59 23:59 23:59 Intake Total 3012.000 2547.333 940 950 Output Total 800 220 1974 250 Balance 2162.000 1597.333 -310 700 - Objective General Appearance: positive: No acute distress, Alert Eyes Bilateral: positive: PERRL, Other (Elderly lean lanky gentleman comfortable in his chair) ENT: positive: Pharynx nml Neck: positive: No JVD. negative: Carotid bruit Respiratory: positive: Chest non-tender. negative: Wheezes, Rales, Rhonchi Cardiovascular: positive: Regular rate & rhythm. negative: Gallop/S4, Friction rub Abdomen: positive: Non-tender, No organomegaly, Nml bowel sounds, No distention Skin: positive: Warm, Dry Extremities: positive: Full ROM, No pedal edema Neurologic/Psychiatric: positive: Oriented x3, CN's nml (2-12). negative: Motor nml (Muscle rigidity, shuffling gait, resting pain rolling tremors of hands, bradykinesia of facial expressions) - Lab Results Fish Bones: 09/29/18 05:15 09/28/18 05:21 ABX Reporting Has patient been on IV antibiotics over the past 48 hours?: No Assessment/Plan - Problem List (1) HCAP (healthcare-associated pneumonia) Impression: No respiratory complaints. The CXR done 09/27 shows a smaller pleural effusion (without giving any diuretic) and infiltrate under the effusion cannot be sized. The sputum culture is growing normal oropharyngeal keeley, so far.Blood cultures negative as well. Continued on empiric iv Unasyn (Day #4 today of a 7 day course planned) and continue expectoration using Mucinex. He lost his IV 09/28 afternoon. I started him on Augmentin 875/125 mg p.o. twice daily. Anticipating him needing 3 more days to complete therapy.Today is Day #2 of augmentin and will need until tomor afternoon to complete therapy. (2) Multiple rib fractures, present on admission Qualifiers: Encounter type: subsequent encounter Fracture type: closed Laterality: left Fracture healing: with routine healing Qualified Code(s): S22.42XD - Multiple fractures of ribs, left side, subsequent encounter for fracture with routine healing Assessment/Plan: The narcotic pain med could be adding to confusion and weakness. Continue the lowest dose required for pain control. Continue IS and PEP management for preventing atelectasis. (3) BPH with urinary obstruction Assessment/Plan: He had a full bladder scan and a Quick was needed, inserted 09/27 quill cleaner and 800 cc of urine was immediately drained. Continue Quick. Continue Flomax. (4) Fall from ground level prior to admission Assessment/Plan: These were undoubtedly from his severe orthostasis, which will be treated with Midodrine. (5) Parkinsons Assessment/Plan: It appears he has the autonomic dysfunction associated with Parkinson's, which will need treatment. Continue Stelevo PT evaluation ordered 09/28. He has had a precipitous drop in functionality. Willing to assess to see if he is a candidate for sniff rehab. Discussed with h is daughter and he. He is amenable to this. But he wants me to reassure him that he can go back to his daughters. Daughter states that she is going to be taking care of him and does not want permanent placement to reassure him.Physical therapy does feel that he is a candidate for rehab and would benefit from strengthening exercises. We did attempt to find a bed. We [facility] to [facility]. 09/29 [facility] but [facility] are negotiating with [facility]. He should be discharged but we are awaiting a bed after [facility] says yes. (6) Orthostatic hypotension due to Parkinson's disease Assessment/Plan: BP confirms severe orthostasis, which is very often seen in Parkinson's patients. Midodrine was started 09/26 afternoon, so he only got 2 doses 09/26. It is dosed tid with meals, so as not to dose before bedtime to not create supine HTN during sleep. Got full 3 doses 09/27. 09/28: Supine blood pressure is 105/58, sitting blood pressure is 112/59, and standing blood pressure is 86/40. 09/29 his supine blood pressure is 135/63. Sitting he is 98/44. Standing he is 99/45. So he still has significant orthostatic hypotension. He was still able to work with physical therapy. But physical therapy is worried about him passing out on them and does not really want to send him up for too long. (7) Autonomic dysfunction Assessment/Plan: He would benefit from Neuro eval and management. Northera (Droxydopa) would be appropriate to use, which we don't carry for inpatients, but could be started at [facility]. 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 No behavior issues at all for 3 nights. On telemetry while adding Seroquel, watched for dysrhythmias due to potential for QT prolongation (when used in combination with Aricept). He has a normal QTc of 413 on his baseline EKG however and no history of cardiac disease. I stopped telemetry 09/29 (9) Dementia Assessment/Plan: Continue Aricept daily. telemetry while adding Seroquel, watching for dysrhythmias due potential for to QT prolongation. None after 48 hours. Stopped telemetry. (10) Anemia Assessment/Plan: Laboratory Tests 09/28/18 09/28/18 05:21 05:21 Iron 34 L TIBC 190 L % Saturation 18 L Transferrin 136 L Vitamin B12 176 L Folate 4.03 L started oral iron and SQ B12. He refused B12 last night but this am took it. I let his daughter know to get followup on this after he returns to PCP office. Start folate today as well.
[2018-09-30] MEDS: TAMSULOSIN 0.4 MG CAPSULE PO SCH (20:47)
[2018-09-30] MEDS: QUEtiapine 25 MG TABLET PO SCH (20:47)
[2018-10-01] MEDS: CARBIDOPA PO SCH ×3 (08:11→17:10)
[2018-10-01] MEDS: guaiFENesin 600 MG TABLET PO SCH (08:11)
[2018-10-01] MEDS: AMOX/CLAV 875 MG/125 MG TABLET PO SCH (08:11)
[2018-10-01] MEDS: FERROUS GLUCONATE 324 MG TABLET PO SCH (08:11)
[2018-10-01] MEDS: SACCHAROMYCES BOULARDII 250 MG CAPSULE PO SCH ×2 (08:11→17:10)
[2018-10-01] MEDS: LEVODOPA PO SCH ×3 (08:11→17:10)
[2018-10-01] MEDS: DONEPEZIL 5 MG TABLET PO SCH (08:11)
[2018-10-01] MEDS: FAMOTIDINE 20 MG TABLET PO SCH (08:11)
[2018-10-01] MEDS: ENTACAPONE PO SCH ×3 (08:11→17:10)
[2018-10-01] MEDS: ACETAMINOPHEN/CODEINE 300 MG/30 MG TABLET PO PRN ×2 (08:11→17:46)
[2018-10-01] MEDS: MIDODRINE 2.5 MG TABLET PO SCH ×3 (08:11→17:11)
[2018-10-01] MEDS: DOCUSATE SODIUM 250 MG CAPSULE PO SCH (08:12)
[2018-10-01] MEDS: SODIUM CHLORIDE FLUSH 0.9% 10 ML SYRINGE IVP SCH ×2 (08:12→17:11)
[2018-10-01] MEDS: POLYETHYLENE GLYCOL 3350 17 GM PACKET PO SCH (08:12)
[2018-10-01] MEDS ORDERED: FOLIC ACID 1 MG TABLET PO SCH (09:00)
--- NOTE | 2018-10-01 14:55 | Discharge Plan ---
Discharge Plan Disposition: Home, Self Care Condition: Good Prescriptions: oxyCODONE [Roxicodone] 5 mg PO Q4HR PRN #30 tablet PRN Reason: Pain L.acid/L.casei/B.bif/B.ciaran/Fos [Probiotic Blend Capsule] 1 each PO BID #14 capsule Activity Restrictions: Activity as Tolerated Weight Bearing: Full Weight Additional Instructions or Follow Up instructions: He was admitted earlier this month for orthostatic hypotension and falls resulting in rib fractures. Stabilized, pain managed, sent home. Returned with fever, cough productive of green phlegm. Found to have a left lower lobe infiltrate. Still has orthostatic hypotension. On Midrin. Both illnesses have resulted in weakness. Now needs some rehab to get back home to independent living. He lives with his daughter and she takes care of him. No Smoking: If you smoke, Please STOP! Call for help. Follow-up with: Johnnie Davila MD [Primary Care Provider] -
--- NOTE | 2018-10-01 15:07 | Discharge Plan ---
Discharge Plan Disposition: Home Health Service Condition: Good Prescriptions: oxyCODONE [Roxicodone] 5 mg PO Q4HR PRN #30 tablet PRN Reason: Pain L.acid/L.casei/B.bif/B.ciaran/Fos [Probiotic Blend Capsule] 1 each PO BID #14 capsule Diet: Regular Activity Restrictions: Activity as Tolerated Weight Bearing: Full Weight Additional Instructions or Follow Up instructions: You were admitted earlier this month for low blood pressure that caused falls resulting in rib fractures. You were stabilized, pain managed, and sent home. Unfortunately you returned with fever, cough productive of green phlegm. You were found to have a left lower lobe pneumonia and you still have low blood pressure that makes you at risk for falling if you stand or walk for too long. We raised the dose of the pill that helps you with that and it's called midodrine. Both illnesses have resulted in weakness. You worked very nicely with our physical therapist. We had hoped that you could go to a detention for rehabilitation. But your insurance has declined that. As such you will go home instead. You will resume home health physical therapy. You have completed antibiotic therapy for pneumonia so you do not have to take any more antibiotics. You do need take a pill for your prostate, called Flomax. You had some urinary retention while you were here. Also take some probiotics to help your bowels after taking antibiotic for 2 weeks. Please see your doctor, Johnnie Davila MD, in follow-up in the next 1-2 weeks. He also needs to repeat your chest x-ray in 3 weeks to make sure your pneumonia is completely gone. I know it is hard, but please work with physical therapy and keep up on your exercises. It will keep you independent. And it will make it easier for your daughter to take care of you. Follow-Up Care: Home Health - PT (resume with [facility] Home Health - OT No Smoking: If you smoke, Please STOP! Call for help. Follow-up with: Johnnie Davila MD [Primary Care Provider] -
[2018-10-01 15:56] VITALS: BP 122/54
--- NOTE | 2018-10-02 03:54 | DISCHARGE SUMMARY ---
Physician: Frances Caceres MD DATE OF ADMISSION: 09/25/2018 DATE OF DISCHARGE: 10/01/2018 DISCHARGE DIAGNOSES 1. Healthcare-associated pneumonia. 2. Multiple rib fractures. 3. Benign prostatic hypertrophy with lower urinary tract obstruction. 4. Urinary retention. 5. 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 6. Parkinsonism. 7. Dementia with psychosis. 8. Iron deficiency anemia. 9. B12 anemia. DISCHARGE MEDICATIONS 1. Aricept 5 mg daily. 2. Flomax 0.4 mg daily. 3. Tylenol 650 every 4 hours as needed. 4. Roxicodone 5 mg every 4 hours as needed. The patient already has a prescription at home. 5. Carbidopa/levodopa with entacapone, called Stalevo 200 one tablet at 0800, 1230, 1700, 2130. 6. Vitamin B12 100 mcg daily. 7. Ferrous gluconate 240 mg daily. 8. Folic acid 1 mg daily. 9. Guaifenesin 600 mg daily. 10. Midodrine 2.5 mg tablets, 2 tablets 3 times a day. 11. MiraLax 17 g daily. 12. Seroquel 25 mg q.p.m. PRINCIPAL PROCEDURE 1. Three chest x-rays. He has a left lung pneumonia with a moderate-sized left pleural effusion reina t gradually improved, but was still present at discharge. Right lung was clear. 2. Urine cultures less than 10,000 colonies. 3. Blood culture is negative after 5 days. 4. Respiratory culture with normal respiratory keeley. HOSPITAL COURSE: This is an absolutely sundeep, 88-year-old, white male with Parkinson disease and de mentia. He lives with his daughter. He was found to have orthostatic hypotension with syncope, and had been falling at home. He had already been admitted on September 16 for the falls and the rib fract ures. He was sent home on September 20. He now returns on September 25, with cough productive of green phlegm. He was mildly hypotensive at 1 , room air saturation 91% on room air. He had a flat affect of a Parkinson patient, diminished breath sounds at the bases, no respiratory distress and a neurologic exam consistent with his Radha on's. White cell count was 5.6. Hemoglobin has chronic anemia at 11. Chest x-ray showed left pleural effusion and underlying consolidation, old right rib fractures that a re healed and newer left rib fractures seen again. He was admitted as a healthcare-associated pneumonia and put on empiric antibiotic therapy. Cultures were not able to be helpful for us to adjust. He was transitioned over to oral antibiotics and comp leted with Augmentin for the last 3 days of his admission. He had no fevers, and he was 97% on room air by the time of discharge. Chest x-ray showed gradual improvement, but the infiltrate is still pr esent. He should have a repeat chest x-ray in 1 month. Multiple rib fracture pain was controlled with opiates, low-dose. They were not done on a regular ba sis. He was initially very slow to move, and worked with physical therapy about improving his endura nce and his strength. We had hoped for him to go to a snf facility for rehabilitation. We had 3-4 available days for this sundeep man. Unfortunately, rehab facility and [employer] [facility] could not agree on payment, and he never went. On the final day, they decided that he could jus t go home with home health. As such, he is discharged to [facility] to resume his physical the rapy. Complications during his stay included urinary retention from his prostate. He was continued on his Flomax and put on a Quick until the day of discharge. Quick was removed and there was a 2-hour voidi ng trial, and he was able to urinate. He was identified as having severe orthostatic hypotension from his autonomic dysfunction from his Pa rkinson's. He would drop his pressures into the 70s systolic with standing from 110 supine. He was placed on midodrine 2.5 initially, then 5 mg t.i.d. He had some improvement with stability and dizzi ness, but he could still drop his pressure to 76 systolic if you stood him for too long. Parkinsonis m was treated with his home medicine of Stalevo. He had no exacerbations and actually improved with strength over the course of time with excellent work with physical therapy and himself. The first fe w nights, he did have problems with sundowning and some psychosis, but once placed on Seroquel the la st 3-4 nights of his stay were quite smooth. He was identified as having iron deficiency anemia down to 9-10 grams of hemoglobin. He is both B12 and iron deficient. He may need an outpatient workup, because he is unclear about whatever GI workup he has had in the past. He received a B12 injection during his stay and is discharged on folic acid , oral B12, and oral iron. PHYSICAL EXAMINATION VITAL SIGNS: He was discharged with a temperature of 36.3, pulse 57, blood pressure 122/54, respirat ions 18, 97% on room air. GENERAL: He is an alert, oriented, elderly gentleman. He is not always oriented, but most days he r ecognizes he is in the hospital, recognizes my name and calls me by my first name. NECK: Supple. LUNGS: Coarse, tubular breath sounds, but are otherwise clear with a slightly dull left base. No eg ophony. No respiratory effort. PMI is normally placed with a regular rate and rhythm, and a soft sy stolic ejection murmur. ABDOMEN: Soft, nontender. EXTREMITIES: No edema. NEUROLOGIC: He has bradykinesia of facial expressions, mild cogwheel rigidity of the upper extremiti es, worse in the lower extremities. Only his hands have a baseline resting pill-rolling tremor, not severe and very minor. He does move very slowly, but with good prompting he can get up with a walker and walk steps to the bathroom and steps to get base. Greater than 30 minutes was spent in coordinating discharge. TD: 10/01/2018 19:27
== END 2018-10-01 17:50 | disposition home health service (06) | DRG 194 ==
LOC: EDUNIT# → ED 11:05 → MS2 17:14
PROVIDERS: ADMIT Internal Medicine; ATTEND Specialist
DX: J18.1 Lobar pneumonia, unspecified organism (principal); N13.8 Other obstructive and reflux uropathy; F05 Delirium due to known physiological condition; G62.9 Polyneuropathy, unspecified; M19.90 Unspecified osteoarthritis, unspecified site; M81.0 Age-related osteoporosis without current pathological fracture; N40.0 Benign prostatic hyperplasia without lower urinary tract symptoms; K59.09 Other constipation; E78.00 Pure hypercholesterolemia, unspecified; H54.7 Unspecified visual loss; S22.42XD Multiple fractures of ribs, left side, subsequent encounter for fracture with routine healing; N40.1 Benign prostatic hyperplasia with lower urinary tract symptoms; R33.8 Other retention of urine; G90.9 Disorder of the autonomic nervous system, unspecified; I95.1 Orthostatic hypotension; G20 Parkinson's disease; F02.80 Dementia in other diseases classified elsewhere, unspecified severity, without behavioral disturbance, psychotic disturbance, mood disturbance, and anxiety; D50.9 Iron deficiency anemia, unspecified; D51.9 Vitamin B12 deficiency anemia, unspecified; R29.6 Repeated falls; Z66 Do not resuscitate; Z96.649 Presence of unspecified artificial hip joint; Z79.891 Long term (current) use of opiate analgesic; Z91.81 History of falling
CPT/HCPCS: 36415; 71045; 80048; 80053; 81001; 81003; 82272; 82607; 82746; 83540; 83605; 83690; 84466; 84484; 85025; 87040; 87070; 87086; 87205; 93005; 99284; 99285

== ENCOUNTER 2018-10-14 08:00 | Outpatient (CLI) | payer MEDICARE ==
[2018-10-14 19:01] LABS: BASOPHILS % (AUTO) 0.7 %; EOSINOPHILS # (AUTO) 0.3 10^3/uL (0.0-0.7); EOSINOPHILS % (AUTO) 4.3 %; HGB - HEMOGLOBIN 11.7 g/dL (14.0-18.0); LYMPHOCYTES # (AUTO) 1.8 10^3/uL (1.5-3.5); LYMPHOCYTES % (AUTO) 26.8 %; MEAN CORPUSCULAR HEMOGLOBIN 28.6 pg (27.0-31.0); MEAN CORPUSCULAR HGB CONC 31.8 g/dL (32.0-36.0); MEAN CORPUSCULAR VOLUME 89.9 fL (80.0-94.0); MEAN PLATELET VOLUME 9.5 fL (7.4-11.4); MONOCYTES # (AUTO) 0.6 10^3/uL (0.0-1.0); MONOCYTES % (AUTO) 9.2 %; NEUTROPHILS # (AUTO) 3.9 10^3/uL (1.5-6.6); PLT - PLATELET COUNT 258 10^3/uL (130-450); RED CELL DISTRIBUTION WIDTH 16.7 % (12.0-15.0); WHITE BLOOD COUNT 6.6 x10^3/uL (4.8-10.8)
[2018-10-14 19:24] LABS: % IRON SATURATION 18 % (20-50); ALBUMIN 3.7 g/dL (3.2-5.5); ALBUMIN/GLOBULIN RATIO 1.2 (1.0-2.2); ALKALINE PHOSPHATASE 179 IU/L (42-121); ALT ALANINE AMINOTRANSFERASE < 10 IU/L (10-60); AST ASPARTATE AMINOTRANSFERASE 15 IU/L (10-42); BILIRUBIN,TOTAL 0.8 mg/dL (0.2-1.0); BUN - BLOOD UREA NITROGEN 20 mg/dL (6-20); CARBON DIOXIDE - CO2 26 mmol/L (21-32); CHLORIDE 102 mmol/L (101-111); CREATININE 0.8 mg/dL (0.6-1.2); GFR - MDRD 91 (>89); GLUCOSE 94 mg/dL (70-100); IRON 43 ug/dL (45-182); SODIUM 138 mmol/L (135-145); TOTAL IRON BINDING CAPACITY 245 ug/dL (250-450); TOTAL PROTEIN 6.8 g/dL (6.7-8.2); TRANSFERRIN 175 mg/dL (180-329)
[2018-10-14 19:27] LABS: THYROID STIMULATING HORMONE 5.01 uIU/mL (0.34-5.60)
[2018-10-14 19:33] LABS: FERRITIN 272.1 ng/mL (23.9-336.2)
== END 2018-10-14 23:59 ==
LOC: LAB.WCP 08:00
PROVIDERS: ATTEND Family Medicine
DX: D64.9 Anemia, unspecified (principal); R53.83 Other fatigue
CPT/HCPCS: 36415; 80053; 82607; 82728; 83540; 83921; 84443; 84466; 85025

== ENCOUNTER 2018-10-14 14:26 | Outpatient (CLI) | payer MEDICARE ==
--- NOTE | 2018-10-15 09:56 | XRAY Report ---
Reason: PNEUMONIA, LEFT LOWER LOBE Procedure Date: 10/14/2018 Accession Number: [id number] / [id number] Procedure: WCP - Chest 1 View X-Ray CPT Code: 19775 FULL RESULT: EXAM: CHEST RADIOGRAPHY EXAM DATE: 10/14/2018 03:05 PM. CLINICAL HISTORY: Pneumonia, left lower lobe. COMPARISON: CHEST 1 VIEW 09/27/2018 9:22 AM. TECHNIQUE: 1 view. FINDINGS: Lungs/Pleura: Interval increase of a left pleural effusion, now moderate in size. Aerated lungs are unremarkable. Mediastinum: Cardiomediastinal silhouette only partly evaluated due to interval increase in the left pleural effusion, mild aortic arch calcification. Other: Bony callus formation along right-sided ribs, previous fractures. IMPRESSION: Interval increase in size of the left pleural effusion. RADIA
== END 2018-10-14 14:27 | disposition home or self-care (01) ==
LOC: DI.WCP 14:26
PROVIDERS: ATTEND Family Medicine
DX: J90 Pleural effusion, not elsewhere classified (principal); D64.9 Anemia, unspecified; R53.83 Other fatigue
CPT/HCPCS: 36415; 71045; 80053; 82607; 82728; 83540; 83921; 84443; 84466; 85025

== ENCOUNTER 2018-10-27 11:21 | Outpatient (CLI) | payer MEDICARE | END 2018-10-27 11:22 | disposition home or self-care (01) | LOC: DI 11:21 | PROVIDERS: ATTEND Family Medicine | DX: R06.00 Dyspnea, unspecified (principal); J90 Pleural effusion, not elsewhere classified; I51.7 Cardiomegaly | CPT/HCPCS: 93306 ==

== ENCOUNTER 2018-12-26 11:15 | Outpatient (CLI) | payer MEDICARE | END 2018-12-26 11:16 | disposition critical access hospital (66) | LOC: EMS 11:15 | PROVIDERS: ATTEND Surgery | DX: R53.1 Weakness (principal); R46.4 Slowness and poor responsiveness ==

== ENCOUNTER 2018-12-26 11:30 | Observation (INO) | payer MEDICARE ==
[2018-12-26] MEDS ORDERED: SODIUM CHLORIDE 0.9% 1,000 ML IV ONE ×2 (11:59→13:11)
[2018-12-26 12:21] LABS: BASOPHILS # (AUTO) 0.1 10^3/uL (0.0-0.1); BASOPHILS % (AUTO) 0.9 %; EOSINOPHILS % (AUTO) 0.2 %; HGB - HEMOGLOBIN 13.6 g/dL (14.0-18.0); LYMPHOCYTES # (AUTO) 0.8 10^3/uL (1.5-3.5); LYMPHOCYTES % (AUTO) 7.9 %; MEAN CORPUSCULAR HEMOGLOBIN 28.4 pg (27.0-31.0); MEAN CORPUSCULAR HGB CONC 33.2 g/dL (32.0-36.0); MEAN CORPUSCULAR VOLUME 85.5 fL (80.0-94.0); MEAN PLATELET VOLUME 8.6 fL (7.4-11.4); MONOCYTES # (AUTO) 0.5 10^3/uL (0.0-1.0); MONOCYTES % (AUTO) 4.9 %; NEUTROPHILS % (AUTO) 86.1 %; PLT - PLATELET COUNT 205 10^3/uL (130-450); RED BLOOD COUNT 4.77 10^6/uL (4.70-6.10); RED CELL DISTRIBUTION WIDTH 14.3 % (12.0-15.0); WHITE BLOOD COUNT 10.5 x10^3/uL (4.8-10.8)
[2018-12-26 12:34] LABS: ALBUMIN 3.6 g/dL (3.2-5.5); ALBUMIN/GLOBULIN RATIO 1.1 (1.0-2.2); BILIRUBIN,TOTAL 1.1 mg/dL (0.2-1.0); CALCIUM 9.1 mg/dL (8.5-10.3)
[2018-12-26 13:08] LABS: BILIRUBIN,URINE NEGATIVE (NEGATIVE); GLUCOSE, URINE (UA) NEGATIVE (NEGATIVE); KETONES,URINE (UA) NEGATIVE (NEGATIVE); LEUKOCYTE ESTERASE, URINE MODERATE (NEGATIVE); NITRITE,URINE NEGATIVE (NEGATIVE); OCCULT BLOOD,URINE SMALL (NEGATIVE); PROTEIN,URINE TRACE mg/dL (NEGATIVE); UROBILINOGEN,URINE 0.2 (NORMAL) E.U./dL (NORMAL)
[2018-12-26 13:22] LABS: CLARITY,URINE CLOUDY (CLEAR)
[2018-12-26 13:23] LABS: BACTERIA,URINE Many /HPF (None Seen); RBC,URINE None Seen /HPF (0-5); SQUAMOUS EPITHELIAL CELL,UR RARE Squamous (<= Few)
--- NOTE | 2018-12-26 13:23 | ED Physician Documentation ---
History of Present Illness - Stated complaint Stated Complaint: WEAKNESS - Chief complaint Chief Complaint: General - History obtained from History obtained from: Patient, Family - History of Present Illness Timing: Yesterday Pain level max: 0 Pain level now: 0 - Additonal information Additional information: 88-year-old male with a history of Parkinson's who was noted to be weak and unable to get himself out of bed today. Has not had any fevers at home that they are aware of but did feel warm to the touch. No coughing. No changes to his medications. States that he has not been eating and drinking as well. Nothing makes it better or worse. No falls. No head injury. No headache. Review of Systems Ten Systems: 10 systems reviewed and negative Constitutional: denies: Chills Eyes: denies: Photophobia Ears: denies: Ear pain Nose: denies: Rhinorrhea / runny nose, Congestion Throat: denies: Sore throat Cardiac: denies: Chest pain / pressure Respiratory: denies: Cough GI: denies: Nausea, Vomiting, Diarrhea Skin: denies: Rash Musculoskeletal: denies: Neck pain, Back pain Neurologic: denies: Head injury PD PAST MEDICAL HISTORY - Past Medical History Cardiovascular: High cholesterol Respiratory: None Neuro: Dementia, Parkinson's Endocrine/Autoimmune: None GI: Chronic constipation : Benign prostate hypertrophy HEENT: Chronic vision loss Psych: Depression, Anxiety Musculoskeletal: Osteoarthritis, Osteoporosis - Past Surgical History Past Surgical History: Yes Ortho: Hip replacement HEENT: Cataracts Derm: Skin cancer surgery - Present Medications Home Medications: Ambulatory Orders Medication Instructions Recorded Confirmed Tamsulosin HCl [Flomax] 0.4 mg PO QPM 02/18/15 09/25/18 Donepezil [Aricept] 5 mg PO DAILY 09/16/18 09/25/18 Acetaminophen [Tylenol] 650 mg PO Q4HR PRN tablet 09/29/18 Carbidopa/Levodopa/Entacapone 1 tab PO 0800,1230,1700,2130 #0 09/29/18 09/25/18 [Stalevo 200 Tablet] Polyethylene Glycol 3350 [Miralax] 17 gm PO DAILY #10 packet 09/29/18 09/25/18 guaiFENesin [Mucinex] 600 mg PO DAILY tablet 09/29/18 oxyCODONE [Roxicodone] 5 mg PO Q4HR PRN #30 tablet 09/29/18 Cyanocobalamin (Vitamin B-12) 100 mcg PO DAILY #30 tablet 10/01/18 [Vitamin B-12 (100mcg tab)] Ferrous Gluconate 240 mg PO DAILY #30 tablet 10/01/18 Folic Acid 1 mg PO DAILY #30 tablet 10/01/18 Midodrine 5 mg PO TID #180 tablet 10/01/18 QUEtiapine [SEROquel] 25 mg PO QPM #30 tablet 10/01/18 - Allergies Allergies/Adverse Reactions: Allergies Allergy/AdvReac Type Severity Reaction Status Date / Time No Known Drug Allergies Allergy Verified 12/26/18 11:37 - Social History Does the pt smoke?: No Smoking Status: Never smoker Does the pt drink ETOH?: No Does the pt have substance abuse?: No - Immunizations Immunizations are current?: No Immunizations: TDAP >10years/unknown - POLST Patient has POLST: No PD ED PE NORMAL - Vitals Vital signs reviewed: Yes - General General: Alert and oriented X 3, No acute distress - HEENT HEENT: PERRL, Ears normal, Pharynx benign, Other (dry lips) - Neck Neck: Supple, no meningeal sign - Cardiac Cardiac: RRR - Respiratory Respiratory: No respiratory distress, Other (occasional wheeze LLL) - Abdomen Abdomen: Soft, Non tender, Non distended - Back Back: No CVA TTP - Derm Derm: Warm and dry, No rash - Extremities Extremities: No edema, No calf tenderness / cord - Neuro Neuro: Alert and oriented X 3, curator herbarium 2-12 intact, No motor deficit, No sensory deficit, Normal speech - Psych Psych: Normal mood, Normal affect Results - Vitals Vitals: Vital Signs - 24 hr 12/26/18 12/26/18 11:34 13:01 Temperature 37.1 C Heart Rate 110 H 96 Respiratory 20 16 Rate Blood Pressure 153/87 H 112/65 O2 Saturation 98 94 Oxygen O2 Source Room air - Labs Labs: Laboratory Tests 12/26/18 12/26/18 12/26/18 12:07 12:07 12:33 WBC 10.5 RBC 4.77 Hgb 13.6 L Hct 40.8 L MCV 85.5 MCH 28.4 MCHC 33.2 RDW 14.3 Plt Count 205 MPV 8.6 Neut # (Auto) 9.0 H Lymph # (Auto) 0.8 L Woodson # (Auto) 0.5 Eos # (Auto) 0.0 Baso # (Auto) 0.1 Absolute Nucleated RBC 0.00 Nucleated RBC % 0.0 Sodium 138 Potassium 4.0 Chloride 101 Carbon Dioxide 26 Anion Gap 11.0 BUN 20 Creatinine 1.0 Estimated GFR (MDRD) 71 L Glucose 106 H Calcium 9.1 Total Bilirubin 1.1 H AST 16 ALT 15 Alkaline Phosphatase 128 H Total Protein 7.0 Albumin 3.6 Globulin 3.4 Albumin/Globulin Ratio 1.1 Lipase 23 Urine Color YELLOW Urine Clarity CLOUDY Urine pH 7.0 Ur Specific [place] 1.015 Urine Protein TRACE Urine Glucose (UA) NEGATIVE Urine Ketones NEGATIVE Urine Occult Blood SMALL H Urine Nitrite NEGATIVE Urine Bilirubin NEGATIVE Urine Urobilinogen 0.2 (NORMAL) Ur Leukocyte Esterase MODERATE H Urine RBC None Seen Urine WBC >25 H Ur Squamous Epith Cells RARE Squamous Urine Bacteria Many H Ur Microscopic Review INDICATED Urine Culture Comments INDICATED - Rads (name of study) Chest x-ray Radiology: Prelim report reviewed, EMP read contemporaneously, See rad report (No acute airspace disease. Left lower lobe pleural effusion, decreased in size) PD MEDICAL DECISION MAKING - ED course Complexity details: reviewed results, re-evaluated patient, considered differential, d/w patient, d/w family ED course: Patient with a UTI today. Given Rocephin. Given IV fluids. Heart rate decreased. Attempted to stand the patient up, as soon as he got to his feet, he fell backwards into bed again. This is not normal for him. His is also his caregiver at home and states that he normally gets up and around by himself white well. Will place in observation for continued hydration and care. Discussed the case with the hospitalist, Dr. Caceres who accepts. This document was made in part using voice recognition software. While efforts are made to proofread this document, sound alike and grammatical errors may occur. Departure - Departure Disposition: ED Place in Observation Clinical Impression: Weakness UTI (urinary tract infection) Qualifiers: Urinary tract infection type: acute cystitis Hematuria presence: without hematuria Qualified Code(s): N30.00 - Acute cystitis without hematuria Condition: Stable
--- NOTE | 2018-12-26 13:37 | XRAY Report ---
Reason: fever Procedure Date: 12/26/2018 Accession Number: [id number] / [id number] Procedure: XR - Chest 1 View X-Ray CPT Code: 53158 FULL RESULT: EXAM: CHEST RADIOGRAPHY EXAM DATE: 12/26/2018 01:26 PM. CLINICAL HISTORY: Fever. COMPARISON: CHEST 1 VIEW 10/14/2018 2:24 PM. TECHNIQUE: 1 view. FINDINGS: Lungs/Pleura: Small to moderate-sized left pleural effusion appears mildly decreased. Right lung appears clear. No pneumothorax. Mediastinum: Within exam limitations, the cardiomediastinal contour is normal. Other: Displaced left rib fractures again demonstrate. Old, healed right rib fractures redemonstrated. IMPRESSION: Small to moderate-sized left pleural effusion appears mildly decreased. RADIA
[2018-12-26] MEDS ORDERED: cefTRIAXone 1 GM VIAL IVP STA (13:43)
[2018-12-26] MEDS ORDERED: ACETAMINOPHEN 325 MG TABLET PO PRN (15:17)
[2018-12-26] MEDS ORDERED: ONDANSETRON 4 MG/2 ML VIAL IVP PRN (15:17)
[2018-12-26] MEDS ORDERED: SODIUM CHLORIDE FLUSH 0.9% 10 ML SYRINGE IVP PRN (15:17)
[2018-12-26] MEDS ORDERED: SODIUM CHLORIDE 0.9% 1,000 ML IV SCH (16:00)
--- NOTE | 2018-12-26 16:13 | HISTORY & PHYSICAL EXAMINATION ---
Chief Complaint - Chief Complaint Chief Complaint: weakness History of Present Illness - History of Present Illness HPI Comment/Other: Mr. Ritchie is a 88 year old male with a past medical history of parkinsons, dementia, high cholesterol, chronic constipation, BPH, abdominal aneurysm, osteoarthritis and osteoporosis who presented to the ER today with his daughter, Francesca complain of mental status change and weakness. Pt is living with his daughter at [facility]. His daughter found pt is very weak and unable to get himself out of bed today. Pt is also reported warm at home but no fever. Her daughter also report he has not been eating and drinking as well, and present lethargic at the morning. No chest pain, headache, nausea, vomiting, cough, shortness of breath are reported from his daughter. UA reveals positive UTI. pt is admitted for above medical reasons on observation unit History - Past Medical History Cardiovascular: reports: High cholesterol Respiratory: reports: None Neuro: reports: Dementia, Parkinson's Endocrine/Autoimmune: reports: None GI: reports: Chronic constipation : reports: Benign prostate hypertrophy HEENT: reports: Chronic vision loss Psych: reports: Depression, Anxiety Musculoskeletal: reports: Osteoarthritis, Osteoporosis MRSA Hx?: No - Past Surgical History Ortho: reports: Hip replacement HEENT: reports: Cataracts Derm: reports: Skin cancer surgery - Family & Social History Social History Notes: Lives at home at [address] [place] with his daughter, Francesca. pt had no hx of cigarett smoking, alcohol, drug abuse - Substance History Use: Uses substance without health or social issues: NONE - POLST Patient has POLST: No Meds/Allgy - Home Medications Home Medications: Ambulatory Orders Medication Instructions Recorded Confirmed Tamsulosin HCl [Flomax] 0.4 mg PO QPM 02/18/15 12/26/18 Acetaminophen [Tylenol] 650 mg PO Q4HR PRN tablet 09/29/18 12/26/18 Carbidopa/Levodopa/Entacapone 1 tab PO 0800,1230,1700,2130 #0 09/29/18 12/26/18 [Stalevo 200 Tablet] Polyethylene Glycol 3350 [Miralax] 17 gm PO DAILY #10 packet 09/29/18 12/26/18 Cyanocobalamin (Vitamin B-12) 100 mcg PO DAILY #30 tablet 10/01/18 12/26/18 [Vitamin B-12 (100mcg tab)] Ferrous Gluconate 240 mg PO DAILY #30 tablet 10/01/18 12/26/18 Folic Acid 1 mg PO DAILY #30 tablet 10/01/18 12/26/18 Midodrine HCl 10 mg PO TID 12/26/18 12/26/18 - Allergies Allergies/Adverse Reactions: Allergies Allergy/AdvReac Type Severity Reaction Status Date / Time No Known Drug Allergies Allergy Verified 12/26/18 11:37 Review of Systems - Constitutional Constitutional: reports: Fatigue, Weakness, Poor appetite. denies: Fever, Chills, Malaise, Diaphoresis, Night sweats - Eyes Eyes: denies: Pain, Irritation, Amaurosis, Blurred vision, Spots in vision, Field loss, Vision loss, Dipolpia - Ears, Nose & Throat Ears, Nose & Throat: denies: Ear pain, Hearing loss, Hearing aids, Tinnitus, Vertigo, Nasal pain, Nasal discharge, Nosebleeds, Nasal obstruction, Nasal congestion, Postnasal drainage, Dentures, Sore throat, Hoarseness, Mouth lesions, Bleeding gums - Cardiovascular Cariovascular: denies: Irregular heart rate, Palpitations, Chest pain, Edema, Lightheadedness, Syncope, Exertional dyspnea, Decr. exercise tolerance - Respiratory Respiratory: denies: Cough, Sputum production, Wheezing, Snoring, Hemoptysis, Orthopnea, SOB at rest, SOB with exertion, Apnea - Gastrointestinal Gastrointestinal: denies: Abdominal pain, Abdominal distention, Constipation, Diarrhea, Change in bowel habits, Rectal bleeding, Black stools, Nausea, Vomiting, Bile emesis, [place] blood emesis, Coffee grounds emesis, Reflux/heartburn - Genitourinary Genitourinary: denies: Dysuria, Frequency, Urgency, Hematuria, Incontinence, Fl ank pain, Nocturia, Urethral discharge - Musculoskeletal Musculoskeletal: denies: Muscle pain, Back pain, Muscle aches, Stiffness, Limited range of motion, Gout, Joint pain, Joint swelling - Integumentary Integumentary: denies: Rash, Pruritis, Lesions, Dryness, Lumps, Acne, Pigment changes, Nail changes - Neurological Neurological: reports: General weakness. denies: Focal weakness, Headache, Dizziness, Numbness, Memory problems, Pre-existing deficit, Abnormal gait, Seizures, Incoordination, Slurred speech - Psychiatric Psychiatric: denies: Depression, Anxiety, Suicidal, Delusions, Hallucinations, Homicidal - Endocrine Endocrine: denies: Polyuria, Polydypsia, Polyphagia, Intolerance to cold - Hematologic/Lymphatic Hematologic/Lymphatic: denies: Anemia, Bruising, Petechiae, Blood clots, Lymphadenopathy, Bleeding tendencies, Recurrent infections Exam - Vital Signs Reviewed Vital Signs: Yes Vital Signs: Vital Signs x48h Temp Pulse Resp BP Pulse Ox 12/26/18 15:00 72 20 111/59 L 93 12/26/18 13:01 96 16 112/65 94 12/26/18 11:34 37.1 C 110 H 20 153/87 H 98 - Physical Exam General Appearance: positive: No acute distress, Alert. negative: Lethargic Eyes Bilateral: positive: Normal inspection, PERRL, No lid inflammation, Conjunctivae nml ENT: positive: ENT inspection nml, Pharynx nml, No signs of dehydration. neg ative: Purulent nasal drainage, Pharyngeal erythema, Oral lesions Neck: positive: Nml inspection, Thyroid nml, No JVD, Trachea midline. negative: Thyromegaly, Lymphadenopathy (R), Lymphadenopathy (L), Stiff neck, Swelling/bruising, Tracheal deviation Respiratory: positive: Chest non-tender, No respiratory distress, Breath sounds nml. negative: Wheezes, Rales, Rhonchi Cardiovascular: positive: Regular rate & rhythm, No murmur, No gallop. negative: Irregularly irregular, Extrasystoles, Tachycardia, Bradycardia, JVD present, Systolic murmur, Diastolic murmur Peripheral Pulses: positive: 2+ Abdomen: positive: Non-tender, No organomegaly, Nml bowel sounds, No distention. negative: Tenderness, Guarding, Rebound Back: positive: Nml inspection. negative: CVA tenderness (R), CVA tenderness (L) Skin: positive: Color nml, No rash, Warm, Dry. negative: Cyanosis, Diaphoresis, Pallor, Skin rash Extremities: positive: Non-tender, Nml appearance. negative: Calf tenderness, Joint swelling, Heydi's sign/cords Neurologic/Psychiatric: positive: Sensation nml, Mood/affect nml. negative: Weakness, Sensory loss, Facial droop, Slurred/abnml speech, Depressed mood/affect Sepsis Event Note (H) - Evaluation Current Stage of Sepsis: Ruled out Conclusion/Plan - Problem List (1) Weakness Conclusion/Plan: pt's daughter report pt present generalized weakness from today, can not walk and get off the bed. UTI may contribute the symptoms treat with antibiotic for UTI consult with PT/OT lab monitor and correct abnormal electrolytic fall precaution (2) UTI (urinary tract infection) Conclusion/Plan: UA analysis reveals UTI treat with Rocephin UA culture and sensitivity study is pending Qualifiers: Urinary tract infection type: acute cystitis Hematuria presence: without hematuria Qualified Code(s): N30.00 - Acute cystitis without hematuria (3) Mental status alteration Conclusion/Plan: pt's daughter also report pt has some confused today, and loss some of appetite as well . UTI is believed the main contributed treated with antibiotics Rocephin neuro check will consider CT of head if pt's mental status remain confused after treatment (4) Parkinsons Conclusion/Plan: pt has chronic condition, will reconcile home meds, closely monitor pt's vital status (5) Dementia Conclusion/Plan: hx of dementia, support pt, and neuro check. pt has no home meds for dementia. (6) Do not intubate, cardiopulmonary resuscitation (CPR)-only code status Conclusion/Plan: pt has PLOST which state DNR and comfortable measure. her daughter re-state DNR, and agree to have antibiotics for pt, and use medical management. - Lab Results Fish Bones: 12/26/18 12:07 12/26/18 12:07 Core Measures - Anticipated LOS I expect patient to be DC'd or transferred within 96 hours.: Yes - DVT/VTE - Prophylaxis VTE/DVT Device ordered at admit?: Yes VTE/DVT Prophylaxis med ordered at admit?: Yes
[2018-12-26] MEDS: ENTACAPONE 200 MG TABLET PO SCH ×2 (17:10→20:54)
[2018-12-26] MEDS: CARBIDOPA/LEVODOPA 25 MG/100 MG TABLET PO SCH ×2 (17:10→20:53)
[2018-12-26] MEDS: SODIUM CHLORIDE FLUSH 0.9% 10 ML SYRINGE IVP SCH (17:24)
[2018-12-26] MEDS: SODIUM CHLORIDE 0.9% 1,000 ML IV SCH (17:24)
[2018-12-26] MEDS: MIDODRINE 2.5 MG TABLET PO SCH (17:59)
[2018-12-26] MEDS: FAMOTIDINE 20 MG TABLET PO SCH (20:54)
[2018-12-26] MEDS ORDERED: TAMSULOSIN 0.4 MG CAPSULE PO SCH (21:00)
[2018-12-26] MEDS ORDERED: MIDODRINE 2.5 MG TABLET PO SCH (22:00)
[2018-12-27] MEDS: SODIUM CHLORIDE FLUSH 0.9% 10 ML SYRINGE IVP SCH ×2 (00:57→09:27)
[2018-12-27] MEDS: SODIUM CHLORIDE 0.9% 1,000 ML IV SCH (01:40)
[2018-12-27 06:03] LABS: BASOPHILS % (AUTO) 0.3 %; EOSINOPHILS % (AUTO) 0.2 %; HGB - HEMOGLOBIN 11.9 g/dL (14.0-18.0); LYMPHOCYTES # (AUTO) 1.5 10^3/uL (1.5-3.5); LYMPHOCYTES % (AUTO) 13.8 %; MEAN CORPUSCULAR HEMOGLOBIN 28.9 pg (27.0-31.0); MEAN CORPUSCULAR HGB CONC 33.2 g/dL (32.0-36.0); MEAN CORPUSCULAR VOLUME 87.2 fL (80.0-94.0); MONOCYTES # (AUTO) 0.9 10^3/uL (0.0-1.0); MONOCYTES % (AUTO) 8.5 %; NEUTROPHILS # (AUTO) 8.3 10^3/uL (1.5-6.6); NEUTROPHILS % (AUTO) 77.2 %; PLT - PLATELET COUNT 156 10^3/uL (130-450); RED BLOOD COUNT 4.09 10^6/uL (4.70-6.10); RED CELL DISTRIBUTION WIDTH 14.4 % (12.0-15.0); WHITE BLOOD COUNT 10.7 x10^3/uL (4.8-10.8)
[2018-12-27 06:13] LABS: ALBUMIN 2.9 g/dL (3.2-5.5); ALKALINE PHOSPHATASE 101 IU/L (42-121); ALT ALANINE AMINOTRANSFERASE < 10 IU/L (10-60); AST ASPARTATE AMINOTRANSFERASE 11 IU/L (10-42); BILIRUBIN,TOTAL 0.7 mg/dL (0.2-1.0); BUN - BLOOD UREA NITROGEN 21 mg/dL (6-20); CALCIUM 8.4 mg/dL (8.5-10.3); CARBON DIOXIDE - CO2 23 mmol/L (21-32); CHLORIDE 109 mmol/L (101-111); GFR - MDRD 71 (>89); GLUCOSE 105 mg/dL (70-100); MAGNESIUM 1.9 mg/dL (1.7-2.8); SODIUM 140 mmol/L (135-145); TOTAL PROTEIN 5.8 g/dL (6.7-8.2)
[2018-12-27] MEDS ORDERED: FERROUS GLUCONATE 324 MG TABLET PO SCH (08:00)
[2018-12-27] MEDS: MIDODRINE 2.5 MG TABLET PO SCH ×2 (08:08→11:59)
[2018-12-27] MEDS: ENTACAPONE 200 MG TABLET PO SCH ×2 (08:08→11:59)
[2018-12-27] MEDS: CARBIDOPA/LEVODOPA 25 MG/100 MG TABLET PO SCH ×2 (08:08→11:59)
[2018-12-27 08:28] LABS: ABSOLUTE RETICS # AUTO 0.041 10^6/uL (0.020-0.110); MEAN RETIC VALUE 99.4; RED BLOOD COUNT 4.31 10^6/uL (4.70-6.10)
[2018-12-27 08:54] LABS: % IRON SATURATION 8 % (20-50); IRON 15 ug/dL (45-182); TOTAL IRON BINDING CAPACITY 185 ug/dL (250-450); TRANSFERRIN 132 mg/dL (180-329)
[2018-12-27] MEDS ORDERED: CYANOCOBALAMIN 500 MCG TABLET PO SCH (09:00)
[2018-12-27] MEDS ORDERED: cefTRIAXone 2 GM in SODIUM CHLORIDE 0.9% MINIBAG 100 ML IV SCH (09:00)
[2018-12-27] MEDS ORDERED: ENOXAPARIN 40 MG/0.4 ML SYRINGE SUBQ SCH (09:00)
[2018-12-27] MEDS ORDERED: POLYETHYLENE GLYCOL 3350 17 GM PACKET PO SCH (09:00)
[2018-12-27] MEDS ORDERED: cefTRIAXone 1 GM VIAL IVP SCH (09:00)
[2018-12-27] MEDS ORDERED: FOLIC ACID 1 MG TABLET PO SCH (09:00)
[2018-12-27] MEDS: FAMOTIDINE 20 MG TABLET PO SCH (09:27)
[2018-12-27 09:33] LABS: FERRITIN 276.9 ng/mL (23.9-336.2)
[2018-12-27] MEDS ORDERED: FERRIC GLUCONATE 62.5 MG/5 ML VIAL IVP ONE (11:26)
[2018-12-27] MEDS ORDERED: CYANOCOBALAMIN 1,000 MCG/ML VIAL IM ONE (12:30)
[2018-12-27] MEDS ORDERED: FERRIC GLUCONATE 125 MG in SODIUM CHLORIDE 0.9% 100ML 100 ML IV ONE (12:30)
--- NOTE | 2018-12-27 14:11 | Discharge Plan ---
Discharge Plan Disposition: Home, Self Care Condition: Poor Prescriptions: Nitrofurantoin Monohyd/M-Cryst [Macrobid 100 mg Capsule] 100 mg PO BID #12 capsule Diet: Regular Activity Restrictions: Activity as Tolerated Shower Restrictions: No (fall precaution, caregiver closely monitor) Instruction Topics: UTI, Nitrofurantoin tablets or capsules Additional Instructions or Follow Up instructions: you may followup your PCP in one week, you may resume your home health PT. You were found to have UTI. Macrobid is prescribed for you to continue the treatment course. You were evaluated and treated with physical therapist, you can walk as your baseline, and you are advised to resume your home health PT. Should your symptoms return or worsen, you may present ER, call 911 or your PCP for help. No Smoking: If you smoke, Please STOP! Call for help. Follow-up with: Johnnie Davila MD [Primary Care Provider] -
--- NOTE | 2018-12-27 14:19 | DISCHARGE SUMMARY ---
Discharge Summary Discharge Date: 12/27/18 Discharging Provider: MARKS Primary Care Provider: Dr. Davila Condition at Discharge: Poor Discharge Disposition: 01 Home, Self Care Discharge Facility Name: home - DIAGNOSES Admission Diagnoses: (1) Weakness (2) UTI (urinary tract infection) (3) Mental status alteration (4) Parkinsons (5) Dementia Discharge Diagnoses with Status of Each Condition: (1) Weakness (2) UTI (urinary tract infection) (3) Mental status alteration (4) Parkinsons (5) Dementia (6) anemia - HPI History of Present Illness: Mr. Ritchie is a 88 year old male with a past medical history of parkinsons, dementia, high cholesterol, chronic constipation, BPH, abdominal aneurysm, osteoarthritis and osteoporosis who presented to the ER today with his daughter, Francesca complain of mental status change and weakness. Pt is living with his daughter at [place]. His daughter found pt is very weak and unable to get himself out of bed today. Pt is also reported warm at home but no fever. Her daughter also report he has not been eating and drinking as well, and present lethargic at the morning. No chest pain, headache, nausea, vomiting, cough, shortness of breath are reported from his daughter. UA reveals positive UTI. pt is admitted for above medical reasons on observation unit - HOSPITAL COURSE Hospital Course: 1) Weakness resolved. pt was evaluated and treated with PT/OT. pt can walk as his baseline per PT report. pt had home health PT, and resume health PT. (2) UTI (urinary tract infection) pt is prescribed antibiotic to continue the treatment course. (3) Mental status alteration resolved. pt is alert and oriented as his baseline (4) Parkinsons stable, continue home regimen and followup PCP and his neurologist management (5) Dementia stable (6) anemia HGB 11.9, likely some dilation. anemia study reveals iron and B12 deficiency. pt was given IV of iron and IM of B12, continue home iron pill and home b12 pill, and PCP management. - ALLERGIES Allergies/Adverse Reactions: Allergies Allergy/AdvReac Type Severity Reaction Status Date / Time No Known Drug Allergies Allergy Verified 12/26/18 11:37 - MEDICATIONS Home Medications: Ambulatory Orders Medication Instructions Recorded Confirmed Tamsulosin HCl [Flomax] 0.4 mg PO QPM 02/18/15 12/26/18 Acetaminophen [Tylenol] 650 mg PO Q4HR PRN tablet 09/29/18 12/26/18 Carbidopa/Levodopa/Entacapone 1 tab PO 0800,1230,1700,2130 #0 09/29/18 12/26/18 [Stalevo 200 Tablet] Polyethylene Glycol 3350 [Miralax] 17 gm PO DAILY #10 packet 09/29/18 12/26/18 Ferrous Gluconate 240 mg PO DAILY #30 tablet 10/01/18 12/26/18 Folic Acid 1 mg PO DAILY #30 tablet 10/01/18 12/26/18 Midodrine HCl 10 mg PO TID 12/26/18 12/26/18 Cyanocobalamin (Vitamin B-12) 1,000 mcg SL DAILY 12/27/18 12/27/18 [Vitamin B-12 (1000 mcg sublingual)] Nitrofurantoin Monohyd/M-Cryst 100 mg PO BID #12 capsule 12/27/18 [Macrobid 100 mg Capsule] - PHYSICAL EXAM AT DISCHARGE General Appearance: positive: No acute distress, Alert. negative: Lethargic Eyes Bilateral: positive: Normal inspection, PERRL, No lid inflammation, Conjunctivae nml ENT: positive: ENT inspection nml, Pharynx nml, No signs of dehydration. negative: Purulent nasal drainage, Pharyngeal erythema, Oral lesions Neck: positive: Nml inspection, Thyroid nml, No JVD, Trachea midline. negative: Thyromegaly, Lymphadenopathy (R), Lymphadenopathy (L), Stiff neck, Swelling/bruising, Tracheal deviation Respiratory: positive: Chest non-tender, No respiratory distress, Breath sounds nml. negative: Wheezes, Rales, Rhonchi Cardiovascular: positive: Regular rate & rhythm, No murmur, No gallop. negative: Irregularly irregular, Extrasystoles, Tachycardia, Bradycardia, JVD present, Systolic murmur, Diastolic murmur Peripheral Pulses: positive: 2+ Abdomen: positive: Non-tender, No organomegaly, Nml bowel sounds, No distention. negative: Tenderness, Guarding, Rebound Back: positive: Nml inspection. negative: CVA tenderness (R), CVA tenderness (L) Skin: positive: Color nml, No rash, Warm, Dry. negative: Cyanosis, Diaphoresis, Pallor Extremities: positive: Non-tender, Full ROM, Nml appearance. negative: Calf tenderness, Joint swelling, Heydi's sign/cords Neurologic/Psychiatric: positive: Motor nml, Sensation nml, Mood/affect nml. negative: Weakness, Sensory loss, Facial droop, Slurred/abnml speech, Depressed mood/affect - LABS Result Diagrams: 12/27/18 05:34 12/27/18 05:34 - SEPSIS Current Stage of Sepsis: Ruled out - FOLLOW UP Follow Up: you may followup your PCP in one week, you may resume your home health PT. You were found to have UTI. Macrobid is prescribed for you to continue the treatment course. You were evaluated and treated with physical therapist, you can walk as your baseline, and you are advised to resume your home health PT. Should your symptoms return or worsen, you may present ER, call 911 or your PCP for help. - TIME SPENT Time Spent in Discharge (Minutes): 55
--- NOTE | 2018-12-27 14:34 | Discharge Plan ---
Discharge Plan Disposition: 01 Home, Self Care Condition: Poor No Smoking: If you smoke, Please STOP! Call for help. Follow-up with: Johnnie Davila MD [Primary Care Provider] -
[2018-12-27 16:07] VITALS: BP 91/48
[2018-12-28] MEDS ORDERED: FERROUS SULFATE 325 MG TABLET PO SCH (14:00)
== END 2018-12-27 16:00 | disposition home or self-care (01) ==
LOC: EDBD → EDUNIT# → EDSEX → ED 11:30 → MS2 15:17
PROVIDERS: ADMIT Nurse Practitioner Gerontology; ATTEND Nurse Practitioner Gerontology
DX: R53.1 Weakness (principal); N39.0 Urinary tract infection, site not specified; G20 Parkinson's disease; F02.80 Dementia in other diseases classified elsewhere, unspecified severity, without behavioral disturbance, psychotic disturbance, mood disturbance, and anxiety; D51.9 Vitamin B12 deficiency anemia, unspecified; D50.9 Iron deficiency anemia, unspecified; Z66 Do not resuscitate; K59.09 Other constipation
CPT/HCPCS: 36415; 71045; 80053; 81001; 82607; 82728; 83540; 83615; 83690; 83735; 84466; 84484; 85025; 85044; 87077; 87086; 87181; 93005; 96361; 96365; 96367; 96372; 96375; 97161; 99283; 99284; A9270; G0378; J1650; J2916; 81003

== ENCOUNTER 2019-01-19 17:29 | Emergency (ER) | payer MEDICARE ==
--- NOTE | 2019-01-19 17:59 | ED Physician Documentation ---
History of Present Illness - Stated complaint Stated Complaint: DEHYDRATION - Chief complaint Chief Complaint: General - History obtained from History obtained from: Patient, Family, Caregiver - History of Present Illness Timing: Today Severity Comments: mild, no pain Quality: mild unsteadiness when pt walked today Radiates to: none Improved by: sitting Worsened by: getting out of bed Associated symptoms: dizziness, perhaps some increased confusion though pt has hx of dementia and it is difficult to say per family if there is any change in his status. he reportedly had a systolic bp of 100 at his nursing facility which they thought was low for him. they feel he is dehydrated. Denies hx of nausea, vomiting, diarrhea. No urinary symptoms. No fever. No falls - Treatment prior to arrival Treatment prior to arrival: none Review of Systems Ten Systems: 10 systems reviewed and negative Constitutional: denies: Fever, Chills Nose: reports: Reviewed and negative Cardiac: denies: Chest pain / pressure, Palpitations Respiratory: denies: Dyspnea, Cough GI: denies: Abdominal Pain, Nausea, Vomiting, Diarrhea : reports: Reviewed and negative Skin: reports: Reviewed and negative Musculoskeletal: reports: Reviewed and negative Neurologic: reports: Generalized weakness, Confused PD PAST MEDICAL HISTORY - Past Medical History Past Medical History: Yes Cardiovascular: High cholesterol Respiratory: None Neuro: Dementia, Parkinson's Endocrine/Autoimmune: None GI: Chronic constipation : Benign prostate hypertrophy HEENT: Chronic vision loss Psych: Depression, Anxiety Musculoskeletal: Osteoarthritis, Osteoporosis - Past Surgical History Past Surgical History: Yes Ortho: Hip replacement HEENT: Cataracts Derm: Skin cancer surgery - Present Medications Home Medications: Ambulatory Orders Medication Instructions Recorded Confirmed RX: Tamsulosin HCl [Flomax] 0.4 mg PO QPM 02/18/15 12/26/18 RX: Acetaminophen [Tylenol] 650 mg PO Q4HR PRN tablet 09/29/18 12/26/18 RX: Carbidopa/Levodopa/Entacapone 1 tab PO 0800,1230,1700,2130 #0 09/29/18 12/26/18 [Stalevo 200 Tablet] RX: Polyethylene Glycol 3350 17 gm PO DAILY #10 packet 09/29/18 12/26/18 [Miralax] RX: Ferrous Gluconate 240 mg PO DAILY #30 tablet 10/01/18 12/26/18 RX: Folic Acid 1 mg PO DAILY #30 tablet 10/01/18 12/26/18 RX: Midodrine HCl 10 mg PO TID 12/26/18 12/26/18 Cyanocobalamin (Vitamin B-12) 1,000 mcg SL DAILY 12/27/18 12/27/18 [Vitamin B-12 (1000 mcg sublingual)] Nitrofurantoin Monohyd/M-Cryst 100 mg PO BID #12 capsule 12/27/18 [Macrobid 100 mg Capsule] - Allergies Allergies/Adverse Reactions: Allergies Allergy/AdvReac Type Severity Reaction Status Date / Time No Known Drug Allergies Allergy Verified 01/19/19 17:40 - Social History Does the pt smoke?: No Smoking Status: Never smoker Does the pt drink ETOH?: No Does the pt have substance abuse?: No - Immunizations Immunizations are current?: No Immunizations: TDAP >10years/unknown - POLST Patient has POLST: No PD ED PE NORMAL - Vitals Vital signs reviewed: Yes - General General: No acute distress, Other (frail) - HEENT HEENT: Atraumatic, Pharynx benign, Other (dry mucous embranes) - Neck Neck: Supple, no meningeal sign - Cardiac Cardiac: RRR, No murmur, No gallop, No rub - Respiratory Respiratory: No respiratory distress, Clear bilaterally - Abdomen Abdomen: Soft, Non tender, Non distended - Male Male : Deferred - Rectal Rectal: Deferred - Derm Derm: Normal color, Warm and dry, No rash - Extremities Extremities: No deformity, No tenderness to palpate, Normal ROM s pain, No edema - Neuro Neuro: No motor deficit, No sensory deficit Eye Opening: Spontaneous Motor: Obeys Commands Verbal: Confused GCS Score: 14 - Psych Psych: Normal mood, Normal affect Results - Vitals Vitals: Oxygen O2 Source Room air stable vitals - EKG (time done) No standard instances Rate: Rate (enter#) (64), Other (normal rate) Rhythm: Other (ventricular trigeminy) Casco: Normal Intervals: Normal IL QRS: Normal Ischemia: Normal ST segments Computer interpretation: Agree with computer - Labs Labs: Laboratory Tests 01/19/19 01/19/19 18:24 18:24 WBC 7.7 RBC 4.41 L Hgb 12.3 L Hct 36.9 L MCV 83.7 MCH 27.9 MCHC 33.3 RDW 14.3 Plt Count 283 MPV 8.8 Neut # (Auto) 5.1 Lymph # (Auto) 2.0 Cedar # (Auto) 0.5 Eos # (Auto) 0.1 Baso # (Auto) 0.1 Absolute Nucleated RBC 0.01 Nucleated RBC % 0.1 Sodium 135 Potassium 4.1 Chloride 102 Carbon Dioxide 23 Anion Gap 10.0 BUN 20 Creatinine 1.0 Estimated GFR (MDRD) 71 L Glucose 98 Calcium 9.2 PD MEDICAL DECISION MAKING - ED course Complexity details: reviewed results, re-evaluated patient, considered differential, d/w patient, d/w family ED course: ddx - electrolyte abnormality, infection, dehydration, orthostatic hypotension medication side effect. 88 y/o M with hx of parkinsons, hx of dementia. pt with possible hypotensive episode today and possibly some increased confusion at his nursing facility.They felt he might be dehydrated. His physical exam here is nonfocal, he has his baseline strength. His labs are stable. He has some trigeminy on ekg but resolved on the monitor after a liter of fluid. His electrolytes are normal. Family feels he is pretty close to his baseline mental status and his BP here has been normal. Pt appears stable for discharge with return precautions if any change or worsening of condition. Departure - Departure Disposition: 01 Home, Self Care Clinical Impression: Ventricular trigeminy Condition: Stable Record reviewed to determine appropriate education?: Yes Comments: Your EKG here today showed some ventricular trigeminy. This resolved on recheck on the monitor. This is not a dangerous rhythm but can occur due to electrolyte disturbances or dehydration even. Your labwork today was normal. Your rhythm normalized here after a liter of saline. Thus it is possible that you had some dehydration. You should follow up with your doctor at your regular visit. Return to the ED if worsening symptoms. Discharge Date/Time: 01/19/19 20:01
[2019-01-19] MEDS ORDERED: SODIUM CHLORIDE 0.9% 1,000 ML IV ONE (18:09)
[2019-01-19 18:32] VITALS: BP 112/71
[2019-01-19 18:41] LABS: CALCIUM 9.2 mg/dL (8.5-10.3)
[2019-01-19 18:42] LABS: BASOPHILS # (AUTO) 0.1 10^3/uL (0.0-0.1); BASOPHILS % (AUTO) 0.9 %; EOSINOPHILS # (AUTO) 0.1 10^3/uL (0.0-0.7); EOSINOPHILS % (AUTO) 1.4 %; HGB - HEMOGLOBIN 12.3 g/dL (14.0-18.0); LYMPHOCYTES % (AUTO) 25.8 %; MEAN CORPUSCULAR HEMOGLOBIN 27.9 pg (27.0-31.0); MEAN CORPUSCULAR HGB CONC 33.3 g/dL (32.0-36.0); MEAN CORPUSCULAR VOLUME 83.7 fL (80.0-94.0); MEAN PLATELET VOLUME 8.8 fL (7.4-11.4); MONOCYTES # (AUTO) 0.5 10^3/uL (0.0-1.0); MONOCYTES % (AUTO) 6.4 %; NEUTROPHILS # (AUTO) 5.1 10^3/uL (1.5-6.6); NEUTROPHILS % (AUTO) 65.5 %; PLT - PLATELET COUNT 283 10^3/uL (130-450); RED BLOOD COUNT 4.41 10^6/uL (4.70-6.10); RED CELL DISTRIBUTION WIDTH 14.3 % (12.0-15.0); WHITE BLOOD COUNT 7.7 x10^3/uL (4.8-10.8)
== END 2019-01-19 20:01 | disposition home or self-care (01) ==
LOC: ED 17:29
DX: R00.8 Other abnormalities of heart beat (principal); R42 Dizziness and giddiness; R41.0 Disorientation, unspecified; R53.1 Weakness; G20 Parkinson's disease; F02.80 Dementia in other diseases classified elsewhere, unspecified severity, without behavioral disturbance, psychotic disturbance, mood disturbance, and anxiety
CPT/HCPCS: 36415; 80048; 85025; 93005; 96360; 99283

== ENCOUNTER → 2019-05-03 | Outpatient (CLI) | payer MEDICARE ==
--- NOTE | 2019-05-03 15:10 | XRAY Report ---
Reason: COUGH, LEFT PLEURAL EFFUSION Procedure Date: 05/03/2019 Accession Number: [id number] / [id number] Procedure: WCP - Chest 2 View X-Ray CPT Code: 96220 FULL RESULT: EXAM: CHEST RADIOGRAPHY EXAM DATE: 05/03/2019 12:25 PM. CLINICAL HISTORY: Cough, left pleural effusion. COMPARISON: CHEST 1 VIEW 12/26/2018 1:14 PM. TECHNIQUE: 2 views. FINDINGS: Lungs/Pleura: No significant change in moderate-sized unilateral left pleural fluid collection. Associated left lung base atelectasis. Right lung appears clear. Mediastinum: Imaged portion of heart and mediastinal contours within normal limits. Other: None. IMPRESSION: No significant change of moderate left pleural fluid collection. No new consolidations identified. RADIA
== END ==
LOC: DI.WCP 09:00 → EDSTATUS 13:43
PROVIDERS: ATTEND Family Medicine
DX: J90 Pleural effusion, not elsewhere classified (principal)
CPT/HCPCS: 71046

== ENCOUNTER 2019-05-09 10:55 | Outpatient (CLI) | payer MEDICARE ==
[2019-05-09] MEDS ORDERED: BUFFERED LIDOCAINE 10 ML SYRINGE ONE (12:11)
--- NOTE | 2019-05-09 13:43 | XRAY Report ---
Reason: post procedure Procedure Date: 05/09/2019 Accession Number: [id number] / [id number] Procedure: XR - Post Thoracentesis 1V CXR CPT Code: 60176 FULL RESULT: EXAM: CHEST RADIOGRAPHY EXAM DATE: 05/09/2019 01:26 PM. CLINICAL HISTORY: Status post recent left thoracentesis (600 cc removed; reported separately). Follow-up left pleural effusion. COMPARISON: CHEST 2 VIEW 05/03/2019 11:58 AM. TECHNIQUE: 1 view. FINDINGS: Lungs/Pleura: Minimal left basilar atelectasis. Tiny residual left pleural effusion with marked reduction in pleural fluid volume compared to 04/11/2019. No evidence pneumothorax. Mediastinum: Within exam limitations, the cardiomediastinal contour is normal. Other: None. IMPRESSION: 1. No evidence of left postthoracentesis pneumothorax. 2. Tiny residual left pleural effusion. RADIA
[2019-05-09 14:08] LABS: BF COLOR YELLOW; BF SOURCE PLEURAL; CC,BF RBC 8000 /mm^3
[2019-05-09 15:15] LABS: BASOPHILS %,BODY FLUID 1 %; LYMPHOCYTES %,BODY FLUID 83; MESOTHELIAL %, BF 1 %; MONOCYTES %,BODY FLUID 10 %
[2019-05-09 15:16] LABS: MACROPHAGES %,BODY FLUID 3 %
[2019-05-09] MEDS ORDERED: BUFFERED LIDOCAINE 10 ML SYRINGE IU ONE (15:41)
--- NOTE | 2019-05-09 16:23 | Ultrasound Report ---
Reason: PLEURAL EFFUSION LEFT Procedure Date: 05/09/2019 Accession Number: [id number] / [id number] Procedure: US - Thoracentesis Puncture CPT Code: FULL RESULT: EXAM: ULTRASOUND GUIDANCE FOR PROCEDURE EXAM DATE: 05/09/2019 01:34 PM. CLINICAL HISTORY: Left pleural effusion. COMPARISON: Chest x-ray 05/03/2019. TECHNIQUE: Real-time and static images were obtained. FINDINGS: Following informed consent, I performed real-time ultrasound of the dependent left pleural space. Using sterile technique, local anesthetic and an 8 Bulgarian centesis catheter, I placed the catheter into the moderate left pleural effusion. Approximately 600 cc of rosalba fluid was removed and sent for appropriate diagnostic studies. There were no complications. A chest x-ray is pending. IMPRESSION: Uneventful ultrasound-guided diagnostic and therapeutic left thoracentesis. RADIA
== END 2019-05-09 10:56 | disposition home or self-care (01) ==
LOC: DI 10:55
PROVIDERS: ATTEND Family Medicine
DX: J90 Pleural effusion, not elsewhere classified (principal)
CPT/HCPCS: 32555; 81599; 87070; 87205; 89051

== ENCOUNTER 2019-05-10 10:27 | Outpatient (CLI) | payer MEDICARE ==
[2019-05-10 13:35] LABS: ALBUMIN 3.7 g/dL (3.2-5.5); ALKALINE PHOSPHATASE 119 IU/L (42-121); ALT ALANINE AMINOTRANSFERASE < 10 IU/L (10-60); AST ASPARTATE AMINOTRANSFERASE 15 IU/L (10-42); BILIRUBIN,TOTAL 0.8 mg/dL (0.2-1.0); BUN - BLOOD UREA NITROGEN 24 mg/dL (6-20); CALCIUM 9.2 mg/dL (8.5-10.3); CARBON DIOXIDE - CO2 28 mmol/L (21-32); CHLORIDE 103 mmol/L (101-111); CREATININE 1.2 mg/dL (0.6-1.2); GFR - MDRD 57 (>89); GLUCOSE 112 mg/dL (70-100); SODIUM 139 mmol/L (135-145); TOTAL PROTEIN 7.5 g/dL (6.7-8.2)
[2019-05-10 13:39] LABS: INR 1.1 (0.8-1.2); PT - PROTHROMBIN TIME 12.8 secs (9.9-12.6)
== END 2019-05-10 23:59 | disposition home or self-care (01) ==
LOC: LAB.N 10:27
PROVIDERS: ATTEND Family Medicine
DX: J90 Pleural effusion, not elsewhere classified (principal)
CPT/HCPCS: 36415; 80053; 85610; 85730

== ENCOUNTER 2019-05-14 08:00 | Outpatient (CLI) | payer MEDICARE | END 2019-05-14 23:59 | disposition home or self-care (01) | LOC: LAB.R 08:00 | PROVIDERS: ATTEND Family Medicine | DX: K52.9 Noninfective gastroenteritis and colitis, unspecified (principal) | CPT/HCPCS: 81599; 83630; 87045; 87046; 87329; 87493 ==

== ENCOUNTER 2019-05-19 01:47 | Outpatient (CLI) | payer MEDICARE | END 2019-05-19 01:48 | disposition critical access hospital (66) | LOC: EMS 01:47 | PROVIDERS: ATTEND Surgery | DX: R11.2 Nausea with vomiting, unspecified (principal); R05 Cough; R07.0 Pain in throat | CPT/HCPCS: A0425; A0429 ==

== ENCOUNTER 2019-05-19 02:01 | Inpatient (IN) | payer MEDICARE ==
[2019-05-19] MEDS ORDERED: ONDANSETRON 4 MG/2 ML VIAL IVP STA (02:47)
[2019-05-19] MEDS ORDERED: SODIUM CHLORIDE 0.9% 1,000 ML IV ONE (02:48)
--- NOTE | 2019-05-19 02:49 | ED Physician Documentation ---
PD HPI NVD - Stated complaint Stated Complaint: N/V - Chief complaint Chief Complaint: Abd Pain - History obtained from History obtained from: Patient, Family - History of Present Illness Timing - onset: Today Timing - details: Abrupt onset Associated symptoms: Dizzy, Loss of appetite. No: Fever, Abdominal pain, Chest pain, Hematemesis, Near syncope / syncope, Dysuria Contributing factors: No: Sick contact, Bad food Recently seen: Not recently seen - Additonal information Additional information: This is an 88-year-old man who lives with his daughter resents with complaints that he was vomiting at 1230 this morning. The daughter really provides most of the history. He did not eat anything that he thinks may made him sick and he was complaining was burning in his chest when he was vomiting but denies any real abdominal pain. The patient recently had a [facility] He subsequently divided developed severe diarrhea the following day and went to see his primary care provider 6 days ago. At that time they did some stool studies that showed positive for leukocytes and it was recommended that he have a colonoscopy that has not yet been arranged. The daughter was giving him Imodium that did not seem to be doing anything until yesterday there was just no diarrhea and then tonight she heard him vomiting in his room. He did eat dinner tonight. He is never had any abdominal surgeries. He has a known AAA that he has elected not to repair. Patient does complain of being a little bit dizzy and he does get short of breath with exertion. Denies chest pain or recent fever. His urine output has been diminished but is not burning. Patient is living with his daughter for the past 3 years. Review of Systems Constitutional: denies: Fever Cardiac: denies: Chest pain / pressure, Palpitations Respiratory: reports: Dyspnea. denies: Cough GI: reports: Nausea, Vomiting, Diarrhea. denies: Abdominal Pain : denies: Dysuria Skin: denies: Rash Neurologic: reports: Other (Is a). denies: Near syncope PD PAST MEDICAL HISTORY - Past Medical History Past Medical History: Yes Cardiovascular: High cholesterol Respiratory: None Neuro: Dementia, Parkinson's Endocrine/Autoimmune: None GI: Chronic constipation : Benign prostate hypertrophy HEENT: Chronic vision loss Psych: Depression, Anxiety Musculoskeletal: Osteoarthritis, Osteoporosis Derm: None - Past Surgical History Past Surgical History: Yes Ortho: Hip replacement HEENT: Cataracts Derm: Skin cancer surgery - Present Medications Home Medications: Ambulatory Orders Medication Instructions Recorded Confirmed Tamsulosin HCl [Flomax] 0.4 mg PO QPM 02/18/15 05/19/19 Carbidopa/Levodopa 25/100 [Sinemet 2 tab PO 0800,1230,1700,2130 05/19/19 05/19/19 25 mg/100 mg] - Allergies Allergies/Adverse Reactions: Allergies Allergy/AdvReac Type Severity Reaction Status Date / Time No Known Drug Allergies Allergy Verified 05/19/19 02:09 - Social History Does the pt smoke?: No Smoking Status: Never smoker Does the pt drink ETOH?: No Does the pt have substance abuse?: No - Immunizations Immunizations are current?: No Immunizations: TDAP >10years/unknown - POLST Patient has POLST: No PD ED PE NORMAL - Vitals Vital signs reviewed: Yes - General General: Alert and oriented X 3, No acute distress, Well developed/nourished - HEENT HEENT: Atraumatic, PERRL, EOMI, Pharynx benign (Dry mucous membranes) - Neck Neck: No adenopathy, Thyroid normal - Cardiac Cardiac: RRR, No murmur, Strong equal pulses - Respiratory Respiratory: No respiratory distress, Clear bilaterally - Abdomen Abdomen: Soft, Non tender, Other (Diminished bowel tones) - Derm Derm: Normal color, Warm and dry - Extremities Extremities: No edema - Neuro Neuro: Alert and oriented X 3, Other (No gross neurological deficits) - Psych Psych: Normal mood, Normal affect Results - Vitals Vitals: Vital Signs - 24 hr 05/19/19 05/19/19 05/19/19 02:04 03:22 05:15 Temperature 37 C Heart Rate 96 99 99 Respiratory 17 16 Rate Blood Pressure 119/75 125/78 134/73 H O2 Saturation 96 93 92 05/19/19 05/19/19 05:28 05:30 Temperature Heart Rate Respiratory Rate Blood Pressure O2 Saturation 88 L 93 Oxygen O2 Source Nasal cannula - Labs Labs: Laboratory Tests 05/19/19 05/19/19 02:20 02:20 WBC 3.4 L RBC 5.07 Hgb 14.0 Hct 44.5 MCV 87.8 MCH 27.6 MCHC 31.5 L RDW 13.8 Plt Count 245 MPV 10.6 Neut # (Auto) 2.0 Lymph # (Auto) 1.0 L Forrest # (Auto) 0.3 Eos # (Auto) 0.1 Baso # (Auto) 0.0 Absolute Nucleated RBC 0.00 Nucleated RBC % 0.0 Sodium 138 Potassium 4.0 Chloride 96 L Carbon Dioxide 28 Anion Gap 14.0 H BUN 19 Creatinine 1.0 Estimated GFR (MDRD) 71 L Glucose 124 H Calcium 9.6 Total Bilirubin 1.2 H AST 22 ALT < 10 L Alkaline Phosphatase 201 H Total Protein 8.3 H Albumin 4.0 Globulin 4.3 H Albumin/Globulin Ratio 0.9 L Lipase 24 PD MEDICAL DECISION MAKING - ED course Complexity details: reviewed results, re-evaluated patient, d/w patient, d/w family ED course: Patient did receive IV fluids and Zofran. He was left n.p.o. White blood cell counts normal. CMP is essentially normal minimal elevation of the total bili at 1.2 and the alk phos is 201. AST and ALT are normal. Abdominal imaging revealed dilated loops of bowel consistent with an ileus or possible early bowel obstruction. Also some concern for esophagitis and he has a large gallbladder with dilated common bile ducts but no evidence stone. His abdominal aneurysm is 7.7 cm. Discussed with the daughter at the patient's bedside about admission and she is in agreement. She knows that he would be amenable to minimally invasive procedures such as endoscopy or colonoscopy but they could only determine surgical intervention if they were faced with that immediate decision needing to be made. I discussed with Dr. Her who asked that I speak with the surgeon safety companion. They felt that the patient could be admitted here with bowel rest and surgical intervention if absolutely necessary. Departure - Departure Disposition: [facility] Clinical Impression: Ileus Condition: Good Discharge Date/Time: 05/19/19 07:30
[2019-05-19 02:54] LABS: BASOPHILS % (AUTO) 0.3 %; EOSINOPHILS # (AUTO) 0.1 10^3/uL (0.0-0.7); EOSINOPHILS % (AUTO) 1.5 %; LYMPHOCYTES % (AUTO) 28.2 %; MEAN CORPUSCULAR HEMOGLOBIN 27.6 pg (27.0-31.0); MEAN CORPUSCULAR HGB CONC 31.5 g/dL (32.0-36.0); MEAN CORPUSCULAR VOLUME 87.8 fL (80.0-94.0); MEAN PLATELET VOLUME 10.6 fL (7.4-11.4); MONOCYTES # (AUTO) 0.3 10^3/uL (0.0-1.0); MONOCYTES % (AUTO) 9.5 %; NEUTROPHILS % (AUTO) 60.2 %; PLT - PLATELET COUNT 245 10^3/uL (130-450); RED BLOOD COUNT 5.07 10^6/uL (4.70-6.10); RED CELL DISTRIBUTION WIDTH 13.8 % (12.0-15.0); WHITE BLOOD COUNT 3.4 x10^3/uL (4.8-10.8)
[2019-05-19 03:04] LABS: ALBUMIN/GLOBULIN RATIO 0.9 (1.0-2.2); ALKALINE PHOSPHATASE 201 IU/L (42-121); ALT ALANINE AMINOTRANSFERASE < 10 IU/L (10-60); AST ASPARTATE AMINOTRANSFERASE 22 IU/L (10-42); BILIRUBIN,TOTAL 1.2 mg/dL (0.2-1.0); BUN - BLOOD UREA NITROGEN 19 mg/dL (6-20); CALCIUM 9.6 mg/dL (8.5-10.3); CARBON DIOXIDE - CO2 28 mmol/L (21-32); CHLORIDE 96 mmol/L (101-111); GFR - MDRD 71 (>89); GLUCOSE 124 mg/dL (70-100); LIPASE 24 U/L (22-51); SODIUM 138 mmol/L (135-145); TOTAL PROTEIN 8.3 g/dL (6.7-8.2)
--- NOTE | 2019-05-19 03:41 | XRAY Report ---
Reason: vomiting with abd distension Procedure Date: 05/19/2019 Accession Number: [id number] / [id number] Procedure: XR - Abdomen 3 View X-Ray CPT Code: 30533 FULL RESULT: EXAM: ABDOMINAL SERIES AND PA CHEST EXAM DATE: 05/19/2019 03:23 AM. CLINICAL HISTORY: Vomiting with abdominal distension. COMPARISON: 05/09/2019 1:18 PM. TECHNIQUE: 2 views abdomen and 1 view chest. FINDINGS: CHEST: Lungs/Pleura: Left basilar atelectasis or infiltrate and small left pleural effusion. No pneumothorax. Mediastinum: Within exam limitations, heart size is upper normal. ABDOMEN: Bowel Gas Pattern: Nonspecific. Gas filled large and small bowel loops. No definite abnormal air-fluid levels. Free Air: None. Other: All to right rib fractures. Right hip prosthesis. IMPRESSION: 1. Nonspecific gas pattern with gas filled large and small bowel loops but no definite abnormal air-fluid levels. Ileus could have this appearance. Obstruction considered less likely. 2. Left basilar atelectasis or infiltrate and small left pleural effusion. RADIA
[2019-05-19] MEDS ORDERED: IOVERSOL 320 100 ML VIAL IVP ONE ×2 (04:07→05:16)
--- NOTE | 2019-05-19 05:44 | CT Report ---
Reason: vomiting; distension Procedure Date: 05/19/2019 Accession Number: [id number] / [id number] Procedure: CT - Abdomen/Pelvis W CPT Code: FULL RESULT: EXAM: CT ABDOMEN AND PELVIS EXAM DATE: 05/19/2019 05:09 AM. CLINICAL HISTORY: Vomiting; distension. COMPARISONS: ABDOMEN/PELVIS W/O 03/26/2016 6:43 PM ABDOMEN 3 VIEW 05/19/2019 2:53 AM. TECHNIQUE: Routine helical CT imaging was performed through the abdomen and pelvis. IV contrast: Nonionic. Enteric contrast: No. Reconstructions: Coronal and sagittal. In accordance with CT protocol optimization, one or more of the following dose reduction techniques were utilized for this exam: automated exposure control, adjustment of mA and/or KV based on patient size, or use of iterative reconstructive technique. FINDINGS: Lung Bases: Right basilar atelectasis. Small to moderate loculated left pleural effusion with associated atelectasis or consolidation at the left base. Extensive coronary artery calcifications. Mild wall thickening in the distal esophagus. Trace pericardial effusion. Liver: No focal lesion identified. Gallbladder/Bile Ducts: Gallbladder is mildly distended. No calcified gallstones are seen. There is intra-and extrahepatic biliary dilatation. Common duct measures 1.5 cm. Spleen: Normal. Pancreas: Ductal dilatation measuring up to 6 mm. Adrenal Glands: Normal. Kidneys: Bilateral cysts. No masses or hydronephrosis. Peritoneal Cavity/Bowel: Borderline caliber fluid-filled small bowel loops with air-fluid levels. Colonic diverticulosis. No definite diverticulitis. No free air or free fluid. No lymphadenopathy. Appendix is not well seen. No evidence of appendicitis. Pelvic Organs: Images are degraded due to streak artifact. Multiple bladder diverticula. Vasculature: Moderate atherosclerosis. Infrarenal abdominal aortic aneurysm measuring 7.7 x 7.3 cm, compared with 6.4 x 6.1 cm on the prior CT. Large amount of eccentric mural thrombus. Bones: Osteopenia. Right hip prosthesis. Vertebral body fracture at L1 of uncertain age, new compared with the prior CT. Other: None. IMPRESSION: 1. Distended gallbladder with biliary dilatation. No calcified stones are seen but noncalcified common duct stone could be present. Consider ultrasound for further evaluation if clinically indicated. 2. Infrarenal abdominal aortic aneurysm measuring 7.7 x 7.3 cm, compared with 6.4 x 6.1 cm previously. 3. Small to moderate loculated left pleural effusion with associated atelectasis or consolidation at the left base. 4. Extensive coronary artery calcifications. 5. Wall thickening in the distal esophagus. Correlate for any symptoms of esophagitis. 6. Borderline caliber fluid-filled small bowel loops with air-fluid levels. This is nonspecific and could represent ileus or enteritis. Partial bowel obstruction not excluded. 7. Colonic diverticulosis without definite diverticulitis. RADIA
[2019-05-19] MEDS ORDERED: SODIUM CHLORIDE FLUSH 0.9% 10 ML SYRINGE IVP PRN (06:45)
[2019-05-19] MEDS ORDERED: ONDANSETRON 4 MG/2 ML VIAL IVP PRN (06:45)
--- NOTE | 2019-05-19 08:28 | XRAY Report ---
Reason: dyspnea, ?pneumonia Procedure Date: 05/19/2019 Accession Number: [id number] / [id number] Procedure: XR - Chest 1 View X-Ray CPT Code: 90213 FULL RESULT: EXAM: CHEST RADIOGRAPHY EXAM DATE: 05/19/2019 08:17 AM. CLINICAL HISTORY: Dyspnea, ?pneumonia. COMPARISON: ABDOMEN 3 VIEW 05/19/2019 2:53 AM. TECHNIQUE: 1 view. FINDINGS IMPRESSION: 1. No significant interval changes of the bibasilar opacity, bilateral minimal to small pleural effusions, greater in the left chest. 2. No new pulmonary opacity or pneumothorax. 3. Mediastinum is stable appearance. RADIA
[2019-05-19] MEDS: PANTOPRAZOLE 40 MG VIAL IVP SCH (08:50)
[2019-05-19] MEDS: SODIUM CHLORIDE FLUSH 0.9% 10 ML SYRINGE IVP SCH ×2 (08:50→17:31)
[2019-05-19] MEDS: SODIUM CHLORIDE 0.9% 1,000 ML IV SCH ×3 (08:50→22:16)
[2019-05-19 09:34] LABS: BILIRUBIN,URINE NEGATIVE (NEGATIVE); GLUCOSE, URINE (UA) NEGATIVE (NEGATIVE); KETONES,URINE (UA) NEGATIVE (NEGATIVE); LEUKOCYTE ESTERASE, URINE NEGATIVE (NEGATIVE); NITRITE,URINE NEGATIVE (NEGATIVE); OCCULT BLOOD,URINE NEGATIVE (NEGATIVE); PH,URINE 5.5 PH (5.0-7.5); PROTEIN,URINE NEGATIVE (NEGATIVE); UROBILINOGEN,URINE 0.2 (NORMAL) E.U./dL (NORMAL)
[2019-05-19 09:35] LABS: CLARITY,URINE CLEAR (CLEAR)
[2019-05-19] MEDS ORDERED: AZITHROMYCIN INJ 500 MG in SODIUM CHLORIDE 0.9% 250 ML IV SCH (11:00)
[2019-05-19] MEDS: cefTRIAXone 2 GM in SODIUM CHLORIDE 0.9% MINIBAG 100 ML IV SCH (11:27)
[2019-05-19] MEDS: POLYETHYLENE GLYCOL 3350 17 GM PACKET PO SCH (11:28)
[2019-05-19] MEDS ORDERED: SODIUM CHLORIDE 0.9% 250 ML IV ONE (13:12)
[2019-05-19] MEDS ORDERED: HYDROmorphone 1 MG/ML CARPUJECT IVP PRN (14:20)
[2019-05-19] MEDS: ACETAMINOPHEN 325 MG TABLET PO PRN ×2 (14:49→18:27)
[2019-05-19] MEDS ORDERED: ENTACAPONE PO SCH (17:00)
[2019-05-19] MEDS ORDERED: LEVODOPA PO SCH (17:00)
[2019-05-19] MEDS ORDERED: CARBIDOPA PO SCH (17:00)
[2019-05-19] MEDS ORDERED: CARBIDOPA/LEVODOPA 25 MG/100 MG TABLET PO SCH (18:30)
[2019-05-19] MEDS: CARBIDOPA/LEVODOPA 25 MG/100 MG TABLET PO SCH ×2 (18:30→22:08)
--- NOTE | 2019-05-19 19:02 | HISTORY & PHYSICAL EXAMINATION ---
DATE OF SERVICE: 05/19/2019 Physician: Isadora Garibay MD HISTORY OF PRESENT ILLNESS: This is an 88-year-old white male with a history of dementia, Parkinson's disease on Sinemet, urinary retention on Flomax, history of a very large abdominal aortic aneurysm recently diagnosed and he is not a surgical candidate, history of prior falls and rib fractures and pneumonia. Patient had treatment for pneumonia and went to see a provider for followup, and a thoracentesis was advised because of a persistent pleural effusion. The daughter reports that an Echo was done because of the pleural effusion, and he has a normal EF. He underwent the pleural tap in the ER, and subsequent to that developed diarrhea, which was watery, painless, there was no blood, and saw a provider again, who ordered Imodium, which he has now had for 7 days with no benefit. Yesterday, he started to develop nausea and vomiting of bilious brown fluid. He was brought to the emergency room by his daughter today because of new nausea, vomiting and persistent diarrhea. Workup in the ER shows abnormal abdominal CT with fluid-filled loops of bowel, consistent with either ileus or bowel obstruction, gallbladder distention and bile duct distention, distal esophagitis and persistent consolidation in the lower lung hein. Patient started to receive IV fluids, and is being admitted for management of a pneumonia, new nausea and vomiting with possible cholecystitis, also diarrhea and a possible ileus. PAST MEDICAL HISTORY 1. Dementia. 2. Parkinson's with autonomic dysfunction, and orthostatic syncope history. 3. Urinary tract infection. 4. Abdominal aortic aneurysm, not a surgical candidate. 5. Recent thoracentesis after a pneumonia. ALLERGIES: NONE. MEDICATIONS 1. Sinemet. 2. Flomax. SOCIAL HISTORY: Patient lives with his daughter, over the past 2-3 years. He is a nonsmoker, drinks no alcohol, and no drug use history. FAMILY HISTORY: Not contributory at this advanced age. REVIEW OF SYSTEMS: Patient does get a warning of lightheadedness with his orthostasis and syncopal episodes, but is not on Midodrine or Northera. He does use a walker for ambulating. Patient denies any abdominal pain currently and is not nauseated. Comprehensive review of systems was performed by talking to patient and the daughter at bedside, and the pertinent positives are listed, the rest are negative. PHYSICAL EXAMINATION GENERAL: Elderly, thin white male. He is stoic and appears in no distress. VITAL SIGNS: Blood pressure 110/60, heart rate 102, temperature 37.7, room air saturation 94%. HEENT: Shows dry oral mucosa, otherwise unremarkable, and flat affect. NECK: No JVD, no carotid bruits. CHEST: Diminished breath sounds, but no rales or rhonchi. HEART: Sounds are distant, regular. No murmurs. ABDOMEN: Soft with normal bowel sounds in the left upper and lower quadrants and diminished bowel sounds, but present in the right upper and lower quadrants. No tenderness, guarding, or rebound. No organomegaly. EXTREMITIES: No clubbing, cyanosis or edema. NEUROLOGIC: Flat affect, stiff, answers appropriately, but memory is poor. LABORATORY DATA: Sodium 138, potassium 4.0, BUN 19, creatinine 1.0, bilirubin 1.2. AST 22, ALT less than 10, albumin 4, lipase normal. White blood count 3.4, with a normal differential, hemoglobin 14, platelet count 245. Urinalysis unremarkable. IMAGING: Abdomen and pelvis CT showed gallbladder dilatation, goal duct dilatation, thickening of the distal esophagus, fluid-filled loops of bowel, and AAA measuring 8 cm, approximately. Chest x-ray: Bibasilar opacities and minimal to small pleural effusions, greater on the left than the right, with no significant interval change from the previous one. IMPRESSION/DIAGNOSES 1. Nausea and vomiting. 2. Pneumonia with recent thoracentesis of pleural effusion and results are not known. 3. Diarrhea x1 week. 4. Ileus by imaging (no bowel obstruction since he has normal bowel sounds). 5. Possible cholecystitis. 6. Parkinson's disease. 7. Orthostatic hypotension due to Parkinson's. 8. Dementia. 9. Abdominal aortic aneurysm. PLAN: IV fluids and n.p.o. status for bowel rest, but advance diet starting with clear liquids if he is no longer nauseated. Obtain ultrasound imaging of the right upper quadrant for closer evaluation of the gallbladder. If he needs stone removed or cholecystectomy, he will need to be transferred to a surgeon at a facility with higher level of care because of his underlying abdominal aortic aneurysm and being high risk. Follow his CBC. Continue with his medications for urinary retention and Parkinson's. CODE STATUS: DNR. DEEP VENOUS THROMBOSIS PROPHYLAXIS: SCDs. ATTESTATION: Patient is expected to be discharged or transferred to another facility within 96 hours: Yes. cc: Johnnie Davila MD TD: 05/19/2019 18:32 MTDD
[2019-05-19] MEDS ORDERED: COD LIVER OIL/ZINC OXIDE 113 GM TUBE TOP PRN (19:31)
[2019-05-19] MEDS ORDERED: TAMSULOSIN 0.4 MG CAPSULE PO SCH (21:00)
[2019-05-19] MEDS ORDERED: CALAMINE/ZINC OXIDE 118 ML BOTTLE TOP PRN (21:36)
[2019-05-19] MEDS ORDERED: ZINC OXIDE 20% OINT 30 GM TUBE TOP PRN (22:02)
--- NOTE | 2019-05-19 23:42 | Ultrasound Report ---
Reason: distended gall bladder with bile duct dilation Procedure Date: 05/19/2019 Accession Number: [id number] / [id number] Procedure: US - Abdomen Limited CPT Code: FULL RESULT: EXAM: ABDOMEN ULTRASOUND LIMITED, RUQ EXAM DATE: 05/19/2019 09:36 PM. CLINICAL HISTORY: Distended gall bladder with bile duct dilation. COMPARISON: ABDOMEN/PELVIS W/ 05/19/2019 4:13 AM ABDOMEN/PELVIS W/O 03/26/2016 6:43 PM. TECHNIQUE: Real-time scanning was performed with static images obtained. FINDINGS: Liver: Heterogeneous echotexture. 16.3 cm. Main portal vein flow: Hepatopetal. Gallbladder: Distended gallbladder. No abnormal wall thickening or sonographic Gresham sign. Biliary System: CBD measures 10 mm. There is intrahepatic biliary ductal dilatation. Other: Right kidney demonstrates no hydronephrosis. Pancreas mainly obscured by overlying bowel gas. IMPRESSION: Redemonstration of common bile duct and intrahepatic biliary ductal dilatation. Gallbladder is distended. RADIA
[2019-05-20] MEDS: SODIUM CHLORIDE FLUSH 0.9% 10 ML SYRINGE IVP SCH ×2 (00:10→09:19)
[2019-05-20 05:54] LABS: BASOPHILS % (AUTO) 0.3 %; EOSINOPHILS # (AUTO) 0.1 10^3/uL (0.0-0.7); EOSINOPHILS % (AUTO) 2.8 %; HGB - HEMOGLOBIN 10.4 g/dL (14.0-18.0); LYMPHOCYTES # (AUTO) 1.3 10^3/uL (1.5-3.5); LYMPHOCYTES % (AUTO) 33.7 %; MEAN CORPUSCULAR HEMOGLOBIN 27.9 pg (27.0-31.0); MEAN CORPUSCULAR HGB CONC 31.7 g/dL (32.0-36.0); MEAN CORPUSCULAR VOLUME 87.9 fL (80.0-94.0); MEAN PLATELET VOLUME 10.5 fL (7.4-11.4); MONOCYTES # (AUTO) 0.5 10^3/uL (0.0-1.0); MONOCYTES % (AUTO) 11.6 %; NEUTROPHILS # (AUTO) 2.1 10^3/uL (1.5-6.6); NEUTROPHILS % (AUTO) 51.3 %; PLT - PLATELET COUNT 175 10^3/uL (130-450); RED BLOOD COUNT 3.73 10^6/uL (4.70-6.10); RED CELL DISTRIBUTION WIDTH 13.6 % (12.0-15.0)
[2019-05-20 06:08] LABS: ALBUMIN 2.7 g/dL (3.2-5.5); ALBUMIN/GLOBULIN RATIO 0.9 (1.0-2.2); ALKALINE PHOSPHATASE 115 IU/L (42-121); ALT ALANINE AMINOTRANSFERASE < 10 IU/L (10-60); AST ASPARTATE AMINOTRANSFERASE 11 IU/L (10-42); BILIRUBIN,TOTAL 0.8 mg/dL (0.2-1.0); BUN - BLOOD UREA NITROGEN 15 mg/dL (6-20); CALCIUM 8.1 mg/dL (8.5-10.3); CARBON DIOXIDE - CO2 26 mmol/L (21-32); CHLORIDE 107 mmol/L (101-111); CREATININE 0.8 mg/dL (0.6-1.2); GFR - MDRD 91 (>89); GLUCOSE 90 mg/dL (70-100); SODIUM 139 mmol/L (135-145); TOTAL PROTEIN 5.7 g/dL (6.7-8.2)
[2019-05-20] MEDS: PANTOPRAZOLE 40 MG VIAL IVP SCH (06:51)
[2019-05-20 08:55] VITALS: BP 105/53
[2019-05-20] MEDS ORDERED: AZITHROMYCIN INJ 250 MG in SODIUM CHLORIDE 0.9% 250 ML IV SCH (09:00)
[2019-05-20] MEDS: POLYETHYLENE GLYCOL 3350 17 GM PACKET PO SCH (09:19)
[2019-05-20] MEDS: CARBIDOPA/LEVODOPA 25 MG/100 MG TABLET PO SCH (09:19)
[2019-05-20] MEDS: cefTRIAXone 2 GM in SODIUM CHLORIDE 0.9% MINIBAG 100 ML IV SCH (09:19)
[2019-05-20] MEDS: SODIUM CHLORIDE 0.9% 1,000 ML IV SCH (09:48)
--- NOTE | 2019-05-20 11:12 | Discharge Plan ---
Discharge Plan Problem Reviewed?: Yes Disposition: Home, Self Care Condition: Stable Diet: Regular Activity Restrictions: Activity as Tolerated Shower Restrictions: No Driving Restrictions: Yes Assistance Devices: Walker Weight Bearing: Full Weight Health Concerns: Admitted for diarrhea, nausea and vomiting, concern for bowel and gall bladder problems. Nausea has resolved and a diet is tolerated. Plan of Treatment: Resume all pre-hospital medications. No gallbladder surgery is needed at this time. Stay on an easily digestible diet to help the diarrhea and keep using the Imodium as needed. Care Goals: Return to stable function. Assessment: Reviewed with daughter. Additional Instructions or Follow Up instructions: See PCP in 1-2 weeks for hospital follow-up and call them for any further questions. No Smoking: If you smoke, Please STOP! Call for help. Follow-up with: Johnnie Davila MD [Primary Care Provider] -
--- NOTE | 2019-05-26 11:34 | DISCHARGE SUMMARY ---
Discharge Summary Admit Date: 05/19/19 Discharge Date: 05/20/19 Discharging Provider: Dr Isadora Garibay Primary Care Provider: Dr Johnnie Aldana Code Status: Do Not Attempt Resuscitation Condition at Discharge: Stable Discharge Disposition: 01 Home, Self Care - DIAGNOSES Admission Diagnoses: 1) N/V 2) Pneumonia 3) Diarrhea 4) Ileus 5) Possible cholecystitis 6) Parkinson's disease 7) Orthostatic hypotension due to Parkinson's 8) Dementia 9) Abdominal aortic aneurysm Discharge Diagnoses with Status of Each Condition: See below - HPI History of Present Illness: Thisis an 88 y/o WM with a Hx of dementia, who lives with his daughter, has Parkinson's disease on Sinemet and orthostatic hypotension due to Parkinson's, urinary retention treated with Flomax and a Hx of AAA, which is 8 cm in size and he is not a surgical candidate. He had a thoracentesis (after treatment for pneumonia) several days ago, and pathology is not yet known. He developed a week of diarrhea, and was seen b y PCP and put on Imodium which helped minimally. He developed N/V and was brought into the ER. Imaging of the abdomen by CT showed an ileus and gall bladder and gall duct dilitation, and persistent bibasilar lung opacities with persistent small pleural effusion bilaterally. He was admitted for iv fluids, antiemetics, bowel rest and antibiotics for the infiltrates. - HOSPITAL COURSE Hospital Course: 1) N/V His symptoms surprisingly resolved after 1 dose of antiemetics. His diet was advanced from liquids to solids and he tolerated that. 2) Pneumonia He got empiric iv antibiotics for 1 day, then was sent home with a ZPak 3) Diarrhea He got 1 day of iv fluids and was ordered to continue to use Imodium prn. He was advised to see his PCP if there were further symptoms and his daughter was advised to offer him easily digestable foods after DCh. 4) Ileus As in #1 and #3. 5) Possible cholecystitis He underwent an US of the RUQ which showed confirmation of gallbladder and common bile duct dilitation, but no stones were seen. He was advised to have follow-up with his PCP and he would be a high-risk surgical case or need GI specialty management. 6) Parkinson's disease He was kept on his same Sinemet dose while here. 7) Orthostatic hypotension due to Parkinson's He is on no Midodrine or Northera for this, which could be considered and starte d as an outpatient. 8) Dementia Stable. 9) Abdominal aortic aneurysm Chronic, and he is not a surgical candidate. - ALLERGIES Allergies/Adverse Reactions: Allergies Allergy/AdvReac Type Severity Reaction Status Date / Time No Known Drug Allergies Allergy Verified 05/19/19 02:09 - MEDICATIONS Home Medications: Ambulatory Orders Medication Instructions Recorded Confirmed Tamsulosin HCl [Flomax] 0.4 mg PO QPM 02/18/15 05/19/19 Carbidopa/Levodopa 25/100 [Sinemet 2 tab PO 0800,1230,1700,2130 05/19/19 05/19/19 25 mg/100 mg] Azithromycin [Zithromax] 250 mg PO DAILY #6 tablet 05/20/19 - PHYSICAL EXAM AT DISCHARGE General Appearance: positive: No acute distress, Alert Eyes Bilateral: positive: Normal inspection ENT: positive: ENT inspection nml Neck: positive: Nml inspection, No JVD Respiratory: positive: No respiratory distress, Other (Diminished BS at bases) Cardiovascular: positive: Regular rate & rhythm, No murmur Abdomen: positive: Non-tender, No distention Extremities: positive: No pedal edema Neurologic/Psychiatric: positive: Disoriented to person, Other (No tremor or stiffness) - LABS Result Diagrams: 05/20/19 05:00 05/20/19 05:00 - DIAGNOSTIC IMAGING Diagnostic Imaging Results: Final report reviewed - FOLLOW UP Follow Up: See PCP in next 7-10. - TIME SPENT Time Spent in Discharge (Minutes): 25
== END 2019-05-20 12:40 | disposition home or self-care (01) | DRG 388 ==
LOC: EDUNIT# → ED 02:01 → MS2 06:45 → UNDOADMIN 06:45 → UNDODISIN 05-20 12:40
PROVIDERS: ADMIT Internal Medicine; ATTEND Internal Medicine
DX: K56.7 Ileus, unspecified (principal); J18.9 Pneumonia, unspecified organism; G20 Parkinson's disease; F02.80 Dementia in other diseases classified elsewhere, unspecified severity, without behavioral disturbance, psychotic disturbance, mood disturbance, and anxiety; I71.4 Abdominal aortic aneurysm, without rupture; I95.1 Orthostatic hypotension; R33.9 Retention of urine, unspecified; K82.8 Other specified diseases of gallbladder; K83.8 Other specified diseases of biliary tract; Z79.899 Other long term (current) drug therapy; Z91.81 History of falling
CPT/HCPCS: 36415; 71045; 74021; 74177; 76705; 80053; 81003; 83690; 85025; 87040; 96374; 99284; 99285; A9270; Q9967; 81001; 87086

== ENCOUNTER 2019-07-19 10:46 | Outpatient (CLI) | payer MEDICARE ==
--- NOTE | 2019-07-19 15:48 | XRAY Report ---
Reason: LEFT PLEURAL EFFUSION Procedure Date: 07/19/2019 Accession Number: [id number] / [id number] Procedure: WCP - Chest 2 View X-Ray CPT Code: 53594 Final Report FULL RESULT: EXAM: CHEST RADIOGRAPHY EXAM DATE: 07/19/2019 10:46 AM. CLINICAL HISTORY: Left pleural effusion. COMPARISON: CHEST 1 VIEW 05/19/2019 7:56 AM. TECHNIQUE: 2 views. FINDINGS: Lungs/Pleura: Redemonstration of left pleural effusion, small to moderate in size, somewhat improved compared to 05/19/2019. Right lung is clear. Aerated lung demonstrates no consolidation. No pulmonary edema. No pneumothorax. Mediastinum: Visualized portion of cardiomediastinal silhouette is unchanged including aortic arch calcifications. Other: None. IMPRESSION: Redemonstration of left pleural effusion, small to moderate in size, somewhat improved compared to prior. RADIA
== END 2019-07-19 23:59 | disposition home or self-care (01) ==
LOC: DI.WCP 10:46
PROVIDERS: ATTEND Family Medicine
DX: J90 Pleural effusion, not elsewhere classified (principal)
CPT/HCPCS: 71046

== ENCOUNTER 2019-10-04 08:00 | Outpatient (CLI) | payer MEDICARE ==
[2019-10-04 12:09] LABS: BILIRUBIN,URINE NEGATIVE (NEGATIVE); GLUCOSE, URINE (UA) NEGATIVE (NEGATIVE); KETONES,URINE (UA) NEGATIVE (NEGATIVE); LEUKOCYTE ESTERASE, URINE LARGE (NEGATIVE); NITRITE,URINE NEGATIVE (NEGATIVE); OCCULT BLOOD,URINE LARGE (NEGATIVE); PH,URINE 6.5 PH (5.0-7.5); PROTEIN,URINE 30 mg/dL (NEGATIVE); UROBILINOGEN,URINE 0.2 (NORMAL) E.U./dL (NORMAL)
[2019-10-04 12:13] LABS: CLARITY,URINE CLEAR (CLEAR)
[2019-10-04 12:25] LABS: BACTERIA,URINE Moderate /HPF (None Seen); RBC,URINE TNTC /HPF (0-5); SQUAMOUS EPITHELIAL CELL,UR NONE SEEN (<= Few)
== END 2019-10-04 23:59 | disposition home or self-care (01) ==
LOC: LAB.R 08:00
PROVIDERS: ATTEND Family Medicine
DX: R30.0 Dysuria (principal)
CPT/HCPCS: 81001; 81003; 87077; 87086; 87181

== ENCOUNTER 2019-12-20 08:00 | Outpatient (CLI) | payer MEDICARE ==
[2019-12-20 18:32] LABS: BILIRUBIN,URINE NEGATIVE (NEGATIVE); GLUCOSE, URINE (UA) NEGATIVE (NEGATIVE); KETONES,URINE (UA) NEGATIVE (NEGATIVE); LEUKOCYTE ESTERASE, URINE NEGATIVE (NEGATIVE); NITRITE,URINE NEGATIVE (NEGATIVE); OCCULT BLOOD,URINE NEGATIVE (NEGATIVE); PH,URINE 5.5 PH (5.0-7.5); PROTEIN,URINE NEGATIVE (NEGATIVE); UROBILINOGEN,URINE 0.2 (NORMAL) E.U./dL (NORMAL)
[2019-12-20 18:38] LABS: CLARITY,URINE CLEAR (CLEAR)
== END 2019-12-20 08:01 | disposition home or self-care (01) ==
LOC: LAB.R 08:00
PROVIDERS: ATTEND Physician Assistant
DX: R30.0 Dysuria (principal)
CPT/HCPCS: 81001; 81003; 87086

== ENCOUNTER 2020-01-11 16:49 | Outpatient (CLI) | payer MEDICARE ==
[2020-01-11] MEDS ORDERED: IOVERSOL 320 100 ML VIAL IVP ONE ×2 (16:57→20:50)
--- NOTE | 2020-01-11 18:12 | CT Report ---
Reason: FINDINGS OF BLOOD Procedure Date: 01/11/2020 Accession Number: [id number] / [id number] Procedure: CT - ANGIO CHEST W/WO CPT Code: Final Report FULL RESULT: PROCEDURE: ANGIO CHEST W/WO INDICATIONS: FINDINGS OF BLOOD CONTRAST: IV CONTRAST: Optiray 320 ml: 100 PO CONTRAST: *NO PO CONTRAST TECHNIQUE: After the administration of intravenous contrast, 2 mm thick sections acquired from the pulmonary apices to the posterior costophrenic angles. 3-dimensional maximum intensity projection (MIP) coronal and sagittal reformats were then acquired through the thorax. For radiation dose reduction, the following was used: automated exposure control, adjustment of mA and/or kV according to patient size. COMPARISON: Single view chest x-ray 05/19/2019 and 12/26/2018. FINDINGS: Image quality: Excellent. Pulmonary arteries: Pulmonary arteries are normal in size, and demonstrate no intraluminal filling defects to suggest central pulmonary embolism. Lungs and pleura: Small loculated left pleural effusion. Consolidation noted in the left lung base which could represent atelectasis, aspiration or pneumonia. No pneumothorax. Central and peripheral airways are patent. Mediastinum: Heart size is normal, without pericardial effusion. Atherosclerotic calcifications noted in the aorta, great vessels and coronary vasculature. No mediastinal or hilar adenopathy. Thoracic aorta is normal in caliber and enhancement. Esophagus is normal in caliber, without hiatal hernia. Bones and chest wall: No suspicious bony lesions. Ribs and thoracic spine appear intact throughout. Spine degenerative disc disease and facet arthropathy are noted. The thyroid is normal. No axillary or supraclavicular adenopathy. Abdomen: Small hiatal hernia. Visualized upper abdominal solid organs appear normal in the early arterial phase of enhancement. IMPRESSION: 1. No pulmonary embolus. 2. No aortic dissection. 3. Small loculated left pleural effusion. 4. Left basilar consolidation which could represent atelectasis, aspirationr pneumonia. 5. Atherosclerosis including dense atherosclerotic calcifications of the coronary vasculature. Reviewed by: Ramonita Martinez MD, PhD on 01/11/2020 6:11 PM PDT Approved by: Ramonita Martinez MD, PhD on 01/11/2020 6:11 PM PDT Station ID: [id number]
--- NOTE | 2020-01-11 18:31 | CT Report ---
Reason: ABDOMINAL PAIN, AAA. Procedure Date: 01/11/2020 Accession Number: [id number] / [id number] Procedure: CT - ANGIO ABDOMEN/PELVIS W CPT Code: Final Report FULL RESULT: PROCEDURE: ANGIO ABDOMEN/PELVIS W INDICATIONS: ABDOMINAL PAIN, AAA. CONTRAST: IV CONTRAST: Optiray 320 ml: 100 PO CONTRAST: *NO PO CONTRAST TECHNIQUE: After the administration of intravenous contrast, 2.5 mm thick sections acquired from the diaphragm to the possible 5. 10 mm maximum-intensity projection (MIP) reformats were then acquired. For radiation dose reduction, the following was used: automated exposure control. COMPARISON: CT abdomen and pelvis 05/19/2019 FINDINGS: Image quality: Excellent. Aorta: Aneurysmal dilatation of the intrarenal abdominal aorta is redemonstrated. Infrarenal abdominal aortic aneurysm measures 8.0 x 7.5 cm in the current study (7.7 x 7.3 cm previously). Large amount of mural thrombus involving the abdominal aortic aneurysm. Mesenteric arteries: Celiac trunk, superior and inferior mesenteric arteries appear patent. Right pelvic arteries: Scattered atherosclerotic and soft plaque noted in the right pelvic vasculature without hemodynamically significant stenosis. Left pelvic arteries: Scattered atherosclerotic and soft plaque noted in the left pelvic vasculature without hemodynamically significant stenosis. Extravascular soft tissues: Small left-sided pleural effusion. Consolidation of the left lung base which could represent atelectasis, aspiration or pneumonia. Heart size is normal. Liver and spleen are normal in size and enhancement. Gallbladder is within normal limits. Biliary system is non dilated. Pancreas enhances normally. No adrenal nodules. Kidneys are normal in size and enhancement, without hydronephrosis. 4 mm nonobstructing stone in the midpole of the left kidney. Bilateral renal cysts. Non opacified bowel loops are normal in wall thickness and caliber. Numerous diverticuli scattered throughout the colon without evidence of diverticulitis. No free fluid or air. The appendix is normal. No retroperitoneal or mesenteric adenopathy. No ventral hernias. Urinary bladder wall thickness is normal. Multiple urinary bladder diverticuli are noted. No suspicious bony lesions. Chronic left obturator ring fracture. Chronic L1 compression fracture stable compared to the prior exam No acute vertebral body compression fractures. Right hip arthroplasty. IMPRESSION: 1. 8.0 x 7.5 cm infrarenal abdominal aortic aneurysm slightly increased in size compared to 05/19/2019. No evidence of aortic rupture. 2. Small left sided pleural effusion. 3. Left basilar consolidation compatible with atelectasis, aspiration or pneumonia. 4. Atherosclerosis. 5. Colonic diverticulosis without evidence of diverticulitis. 6. No free fluid or free air. 7. No dilated loops of bowel. Reviewed by: Ramonita Martinez MD, PhD on 01/11/2020 6:30 PM PDT Approved by: Ramonita Martinez MD, PhD on 01/11/2020 6:30 PM PDT Station ID: [id number]
== END 2020-01-11 16:50 | disposition home or self-care (01) ==
LOC: DI 16:49
PROVIDERS: ATTEND Family Medicine
DX: I71.4 Abdominal aortic aneurysm, without rupture (principal); J90 Pleural effusion, not elsewhere classified; R91.8 Other nonspecific abnormal finding of lung field; K57.30 Diverticulosis of large intestine without perforation or abscess without bleeding; I70.8 Atherosclerosis of other arteries
CPT/HCPCS: 71275; 74174; Q9967

== ENCOUNTER 2020-01-12 18:29 | Outpatient (CLI) | payer MEDICARE | END 2020-01-12 18:30 | disposition critical access hospital (66) | LOC: EMS 18:29 | PROVIDERS: ATTEND Surgery | DX: M25.561 Pain in right knee (principal) | CPT/HCPCS: A0425; A0429 ==

== ENCOUNTER 2020-01-12 18:46 | Inpatient (IN) | payer MEDICARE ==
--- NOTE | 2020-01-12 19:26 | ED Physician Documentation ---
History of Present Illness - Stated complaint Stated Complaint: RT KNEE PAIN, WEAKNESS - Chief complaint Chief Complaint: Ext Problem - History obtained from History obtained from: Family (Patient is an 89-year-old male brought in by ambulance patient's daughter is present she reports that approximately 24 hours ago he was able to ambulate per his baseline he does have a Parkinson's that is left him with some deficiencies however he is able to ambulate with a walker she noticed about 24 hours ago that he was unable to use his right lower extremity andUnable to ambulate.The daughter reports she has a known history of an abdominal aortic aneurysm. Denies any recent falls or traumas or any anticoagulant or antiplatelet or blood thinners.Patient and daughter report that this patient is a DNR.) Review of Systems Unable to obtain: Dementia PD PAST MEDICAL HISTORY - Past Medical History Cardiovascular: High cholesterol Respiratory: None Neuro: Dementia, Parkinson's Endocrine/Autoimmune: None GI: Chronic constipation : Benign prostate hypertrophy HEENT: Chronic vision loss Psych: Depression, Anxiety Musculoskeletal: Osteoarthritis, Osteoporosis Derm: None - Past Surgical History Past Surgical History: Yes Ortho: Hip replacement HEENT: Cataracts Derm: Skin cancer surgery - Present Medications Home Medications: Ambulatory Orders Medication Instructions Recorded Confirmed Tamsulosin HCl [Flomax] 0.4 mg PO QPM 02/18/15 05/19/19 Carbidopa/Levodopa 25/100 [Sinemet 2 tab PO 0800,1230,1700,2130 05/19/19 05/19/19 25 mg/100 mg] Azithromycin [Zithromax] 250 mg PO DAILY #6 tablet 05/20/19 - Allergies Allergies/Adverse Reactions: Allergies Allergy/AdvReac Type Severity Reaction Status Date / Time No Known Drug Allergies Allergy Verified 01/12/20 18:54 - Social History Does the pt smoke?: No Smoking Status: Never smoker Does the pt drink ETOH?: No Does the pt have substance abuse?: No - Immunizations Immunizations are current?: No Immunizations: TDAP >10years/unknown - POLST Patient has POLST: No PD ED PE NORMAL - Vitals Vital signs reviewed: Yes - General General: Alert and oriented X 3, No acute distress, Well developed/nourished - HEENT HEENT: PERRL, Moist mucous membranes - Neck Neck: Supple, no meningeal sign - Cardiac Cardiac: RRR, No murmur, Strong equal pulses - Respiratory Respiratory: No respiratory distress, Clear bilaterally - Abdomen Abdomen: Normal bowel sounds, Soft, Non tender, Non distended - Derm Derm: Warm and dry - Extremities Extremities: No deformity, Other (No deformity of the right lower extremity) - Neuro Neuro: Alert and oriented X 3, Other (Noted weakness of the right lower extremity no facial droop and no pronator drift patient unable to hold right leg off of bed. There is a noted foot drop as well.) - Psych Psych: Normal mood, Normal affect Results - Vitals Vitals: Vital Signs - 24 hr 01/12/20 18:59 Temperature 36.6 C Heart Rate 62 Respiratory 18 Rate Blood Pressure 138/82 H O2 Saturation 95 Oxygen O2 Source Room air - EKG (time done) 08:14 Rate: Other (no stemi) - Labs Labs: Laboratory Tests 01/12/20 01/12/20 01/12/20 20:25 20:25 20:25 WBC 6.5 RBC 4.65 L Hgb 13.2 L Hct 41.3 L MCV 88.8 MCH 28.4 MCHC 32.0 RDW 15.1 H Plt Count 230 MPV 10.2 Neut # (Auto) 4.2 Lymph # (Auto) 1.7 Costilla # (Auto) 0.4 Eos # (Auto) 0.2 Baso # (Auto) 0.0 Absolute Nucleated RBC 0.00 Nucleated RBC % 0.0 PT 12.5 INR 1.1 APTT 27.5 Sodium 138 Potassium 4.1 Chloride 104 Carbon Dioxide 26 Anion Gap 8.0 BUN 16 Creatinine 0.7 Estimated GFR (MDRD) 106 Glucose 96 Calcium 9.1 Total Bilirubin 0.9 AST 15 ALT < 10 L Alkaline Phosphatase 119 Troponin I High Sens Total Protein 7.6 Albumin 3.7 Globulin 3.9 Albumin/Globulin Ratio 0.9 L Lipase 26 01/12/20 20:25 WBC RBC Hgb Hct MCV MCH MCHC RDW Plt Count MPV Neut # (Auto) Lymph # (Auto) Cost[place] # (Auto) Eos # (Auto) Baso # (Auto) Absolute Nucleated RBC Nucleated RBC % PT INR APTT Sodium Potassium Chloride Carbon Dioxide Anion Gap BUN Creatinine Estimated GFR (MDRD) Glucose Calcium Total Bilirubin AST ALT Alkaline Phosphatase Troponin I High Sens 4.2 Total Protein Albumin Globulin Albumin/Globulin Ratio Lipase PD MEDICAL DECISION MAKING - ED course Complexity details: reviewed old records, reviewed results, re-evaluated patient, considered differential (Patient's history and exam are concerning for possible stroke CT of the head confirms this there is a hemorrhagic stroke. per patient and daughter patient is DNR. will admit for social work and hospice consultation.), d/w patient, d/w family, d/w advanced manufacturing consultant - Consults Consults: Discussed case with (dr. neri. will admit) - Critical Care Time(min): 30 Time Includes: Direct patient care, Review records, Reassess patient, Document care, Coordinate care, Medical consult, Family consult for tx dec Procedures included in critical care time: Peripheral IV Procedures excluded from critical care time: EKG Departure - Departure Disposition: 66 [facility] DC/Xfer Clinical Impression: Hemorrhagic stroke Condition: Stable Discharge Date/Time: 01/12/20 22:18
[2020-01-12 20:35] LABS: BASOPHILS % (AUTO) 0.5 %; EOSINOPHILS # (AUTO) 0.2 10^3/uL (0.0-0.7); EOSINOPHILS % (AUTO) 2.5 %; HGB - HEMOGLOBIN 13.2 g/dL (14.0-18.0); LYMPHOCYTES # (AUTO) 1.7 10^3/uL (1.5-3.5); LYMPHOCYTES % (AUTO) 25.7 %; MEAN CORPUSCULAR HEMOGLOBIN 28.4 pg (27.0-31.0); MEAN CORPUSCULAR VOLUME 88.8 fL (80.0-94.0); MEAN PLATELET VOLUME 10.2 fL (7.4-11.4); MONOCYTES # (AUTO) 0.4 10^3/uL (0.0-1.0); MONOCYTES % (AUTO) 6.8 %; NEUTROPHILS # (AUTO) 4.2 10^3/uL (1.5-6.6); PLT - PLATELET COUNT 230 10^3/uL (130-450); RED BLOOD COUNT 4.65 10^6/uL (4.70-6.10); RED CELL DISTRIBUTION WIDTH 15.1 % (12.0-15.0); WHITE BLOOD COUNT 6.5 x10^3/uL (4.8-10.8)
[2020-01-12 20:44] LABS: INR 1.1 (0.8-1.2); PT - PROTHROMBIN TIME 12.5 secs (9.9-12.6)
[2020-01-12 20:51] LABS: PARTIAL THROMBOPLASTIN TIME 27.5 secs (24.9-33.3)
[2020-01-12 20:54] LABS: ALBUMIN 3.7 g/dL (3.2-5.5); ALBUMIN/GLOBULIN RATIO 0.9 (1.0-2.2); ALKALINE PHOSPHATASE 119 IU/L (42-121); ALT ALANINE AMINOTRANSFERASE < 10 IU/L (10-60); AST ASPARTATE AMINOTRANSFERASE 15 IU/L (10-42); BILIRUBIN,TOTAL 0.9 mg/dL (0.2-1.0); BUN - BLOOD UREA NITROGEN 16 mg/dL (6-20); CALCIUM 9.1 mg/dL (8.5-10.3); CARBON DIOXIDE - CO2 26 mmol/L (21-32); CHLORIDE 104 mmol/L (101-111); CREATININE 0.7 mg/dL (0.6-1.2); GLUCOSE 96 mg/dL (70-100); LIPASE 26 U/L (22-51); SODIUM 138 mmol/L (135-145); TOTAL PROTEIN 7.6 g/dL (6.7-8.2)
--- NOTE | 2020-01-12 21:00 | CT Report ---
Reason: left lower extremity weakness Procedure Date: 01/12/2020 Accession Number: [id number] / [id number] Procedure: CT - HEAD WO CPT Code: Final Report FULL RESULT: PROCEDURE: HEAD WO INDICATIONS: left lower extremity weakness TECHNIQUE: Noncontrast 4.5 mm thick angled axial sections acquired from the foramen magnum to the vertex. For radiation dose reduction, the following was used: automated exposure control, adjustment of mA and/or kV according to patient size. COMPARISON: None. FINDINGS: Image quality: Excellent. CSF spaces: Basal cisterns are patent. No extra-axial fluid collections. There is moderate cerebral volume loss with prominence of the ventricles and sulci. Brain: There is a subcortical intraparenchymal hematoma within the left posterior parietal lobe at the vertex measuring approximately 2.2 x 1.6 x 3.1 cm with associated mild vasogenic edema. No midline shift or transtentorial herniation. No discrete associated mass visualized. There is subcortical and periventricular white matter hypodensity redemonstrated compatible with mild to moderate chronic white matter small vessel ischemic changes. Skull and face: Calvarium and visualized facial bones are intact, without suspicious lesions. Sinuses: Visualized sinuses and mastoids are clear. IMPRESSION: 1. Subcortical intraparenchymal hematoma involving the left parietal lobe at the vertex with mild associated vasogenic edema. No midline shift or other evidence of herniation. The findings may reflect sequelae of a hypertensive hemorrhage, although the differential includes hemorrhage associated with an underlying mass. Consider a follow-up contrast-enhanced MRI for further evaluation. Findings discussed with Dr. Gay on 01/12/2020 at 8:52 PM. Reviewed by: Adam Almonte MD on 01/12/2020 8:58 PM PDT Approved by: Adam Almonte MD on 01/12/2020 8:58 PM PDT Station ID: [id number]
--- NOTE | 2020-01-12 21:22 | XRAY Report ---
Reason: weakness Procedure Date: 01/12/2020 Accession Number: [id number] / [id number] Procedure: XR - Chest 1 View X-Ray CPT Code: 46511 Final Report FULL RESULT: PROCEDURE: Chest 1 View X-Ray INDICATIONS: weakness TECHNIQUE: One view of the chest was acquired. COMPARISON: 07/19/2019. FINDINGS: Surgical changes and devices: None. Lungs and pleura: There is a small left pleural effusion with left basilar opacities consistent with compressive atelectasis or consolidation. Right lung is clear. Mediastinum: Mediastinal contours appear unchanged. Heart size is normal. Bones and chest wall: Multiple healed right posterior rib fractures are redemonstrated. Overlying soft tissues appear unremarkable. IMPRESSION: 1. Small left pleural effusion with left basilar compressive atelectasis or consolidation. Reviewed by: Adam Almonte MD on 01/12/2020 9:20 PM PDT Approved by: Adam Almonte MD on 01/12/2020 9:20 PM PDT Station ID: [id number]
[2020-01-12] MEDS ORDERED: SODIUM CHLORIDE FLUSH 0.9% 10 ML SYRINGE IVP PRN (21:24)
--- NOTE | 2020-01-12 21:34 | HISTORY & PHYSICAL EXAMINATION ---
Chief Complaint - Chief Complaint Chief Complaint: Right lower extremity weakness History of Present Illness - Admitted From Admitted From:: [facility] ED - History Obtained From Records Reviewed: Yes History obtained from: Patient's daughter and ED physician Exam Limitations: Dementia - History of Present Illness HPI Comment/Other: Patient is an 89-year-old male with history of dementia, Parkinson's disease on Sinemet, a very large abdominal aortic aneurysm for which he is not a surgical candidate, history of frequent falls and urinary retention on Flomax who presented today ED having been brought in by his daughter with right lower extremity weakness. He woke up this morning around 8 am complaining that his right leg was not working. He also complained of pain behind his right knee. He was asked by the on-call physician for his primary care physician to go to the ED for evaluation. This took all day and he finally presented to the ED around 6 PM. In the ED work-up included a CT scan of the brain which showed Subcortical intraparenchymal hematoma involving the left parietal lobe at the vertex with m ild associated vasogenic edema. No midline shift or other evidence of herniation was seen. The radiologic differential included hemorrhage associated with an underlying mass and a follow-up contrast-enhanced MRI for further evaluation was recommended The patient had no other neurologic deficits. Though he has a history of frequent falls his daughter denied any recent trauma. She also reports that the patient's blood pressure generally runs on the low low side with a systolic around 90s. At bedside he is resting comfortably. He is awake, alert and oriented to place and reason for presentation. He is slightly tremulous due to his Parkinson's. On a separate note the patient had presented to the hospital yesterday for CT scans of the thorax, abdomen and pelvis ordered by his primary care physician. This was likely to monitor his aortic aneurysm. It showed a slight increase in the infrarenal abdominal aortic aneurysm which measured 8 x 7.5 cm. There was no evidence of aortic rupture. The CT angiogram of the thorax was negative for pulmonary embolism, aortic dissection. It showed left basilar consolidation which could represent atelectasis, aspiration pneumonia. There was a small loculated left pleural effusion. The patient's daughter opted not to have any further intervention done. And requested comfort measures. As a result the patient was admitted and hospice consulted. History - Past Medical History Cardiovascular: reports: High cholesterol Respiratory: reports: None Neuro: reports: Dementia, Parkinson's Endocrine/Autoimmune: reports: None GI: reports: Chronic constipation : reports: Benign prostate hypertrophy HEENT: reports: Chronic vision loss Psych: reports: Depression, Anxiety Musculoskeletal: reports: Osteoarthritis, Osteoporosis Derm: reports: None MRSA Hx?: No - Past Surgical History Ortho: reports: Hip replacement HEENT: reports: Cataracts Derm: reports: Skin cancer surgery - Family & Social History Family History Comment/Other: Could not obtain specifics of patient's family history owing to the passage of time and patient's dementia. Social History Notes: Lives at home at [place] with his daughter, Francesca. pt had no hx of cigarett smoking, alcohol, drug abuse - Substance History Use: Uses substance without health or social issues: NONE - POLST Patient has POLST: Yes POLST Status: DNR Meds/Allgy - Home Medications Home Medications: Ambulatory Orders Medication Instructions Recorded Confirmed Tamsulosin HCl [Flomax] 0.4 mg PO QPM 02/18/15 05/19/19 Carbidopa/Levodopa 25/100 [Sinemet 2 tab PO 0800,1230,1700,2130 05/19/19 05/19/19 25 mg/100 mg] Azithromycin [Zithromax] 250 mg PO DAILY #6 tablet 05/20/19 - Allergies Allergies/Adverse Reactions: Allergies Allergy/AdvReac Type Severity Reaction Status Date / Time No Known Drug Allergies Allergy Verified 01/12/20 18:54 Review of Systems - Constitutional Constitutional: denies: Fever, Chills - Eyes Eyes: denies: Pain, Vision loss, Dipolpia - Ears, Nose & Throat Ears, Nose & Throat: denies: Ear pain, Tinnitus, Vertigo - Cardiovascular Cariovascular: denies: Palpitations, Chest pain, Edema, Lightheadedness, Syncope, Exertional dyspnea - Respiratory Respiratory: denies: Cough, Sputum production, Wheezing, SOB at rest - Gastrointestinal Gastrointestinal: denies: Abdominal pain, Abdominal distention, Nausea, Vomiting - Genitourinary Genitourinary: denies: Dysuria, Frequency, Urgency - Neurological Neurological: reports: Focal weakness (right lower extremity), Memory problems. denies: Headache, Dizziness - Psychiatric Psychiatric: denies: Depression, Anxiety - Endocrine Endocrine: denies: Polyuria, Polydypsia - Hematologic/Lymphatic Hematologic/Lymphatic: denies: Anemia, Bruising Prior Level of Functionality: Patient lives with his daughter. Who helps him with activities of daily living. He is able to feed himself when the food is cut into small pieces and served in front of him. Owing to his Parkinson's he has a tremor. Exam - Vital Signs Vital Signs: Vital Signs x48h Temp Pulse Resp BP Pulse Ox 01/12/20 18:59 36.6 C 62 18 138/82 H 95 - Physical Exam General Appearance: positive: No acute distress, Alert Eyes Bilateral: positive: PERRL, EOMI ENT: positive: ENT inspection nml, No signs of dehydration Neck: positive: No JVD, Trachea midline Respiratory: positive: Chest non-tender, No respiratory distress, Breath sounds nml. negative: Wheezes, Rales, Rhonchi Cardiovascular: positive: Regular rate & rhythm Abdomen: positive: Non-tender, No organomegaly, Nml bowel sounds, No distention. negative: Guarding, Rebound Back: positive: Nml inspection Skin: positive: Color nml, Warm, Dry Neurologic/Psychiatric: positive: Oriented x3, CN's nml (2-12), Mood/affect nml, Weakness (right lower extremity). negative: Facial droop, Slurred/abnml speech Conclusion/Plan - Problem List (1) Hemorrhagic stroke Conclusion/Plan: Patient's daughter opted for comfort measures only. The CT scanning of the brain raised the possibility of hemorrhage associated with a possible mass and recommended a contrast enhanced MRI for follow-up. In light of the patient's daughter opting for comfort measures only, we will only repeat CT scan without contrast in the morning. Labetalol ordered as needed. The goal is to keep the systolic blood pressure less than or equal to 120. Hospice has been consulted to see the patient in the morning. Social work has been consulted to help facilitate the process of hospice. I explained to patient's daughter that there was a significant chances of this progressing. If there were any significant changes overnight, I will contact her. She expressed understanding and was in agreement with the plan. (2) Parkinsons Conclusion/Plan: Patient is on Sinemet will continue. (3) BPH with urinary obstruction Conclusion/Plan: Will resume Flomax once verified - Lab Results Fish Bones: 01/12/20 20:25 01/12/20 20:25 Core Measures - Anticipated LOS I expect patient to be DC'd or transferred within 96 hours.: Yes - DVT/VTE - Prophylaxis VTE/DVT Device ordered at admit?: No VTE/DVT Prophylaxis med ordered at admit?: No Not Ordered - Medical Reason: Contraindicated
[2020-01-12] MEDS ORDERED: LABETALOL 20 MG/4 ML SYRINGE IVP PRN (22:48)
[2020-01-12] MEDS ORDERED: CARBIDOPA/LEVODOPA 25 MG/100 MG TABLET PO STA (22:50)
[2020-01-13] MEDS: SODIUM CHLORIDE FLUSH 0.9% 10 ML SYRINGE IVP SCH ×3 (00:06→16:52)
[2020-01-13 04:10] LABS: BILIRUBIN,URINE NEGATIVE (NEGATIVE); GLUCOSE, URINE (UA) NEGATIVE (NEGATIVE); KETONES,URINE (UA) NEGATIVE (NEGATIVE); LEUKOCYTE ESTERASE, URINE NEGATIVE (NEGATIVE); NITRITE,URINE NEGATIVE (NEGATIVE); OCCULT BLOOD,URINE NEGATIVE (NEGATIVE); PH,URINE 5.5 PH (5.0-7.5); PROTEIN,URINE NEGATIVE (NEGATIVE); UROBILINOGEN,URINE 0.2 (NORMAL) E.U./dL (NORMAL)
[2020-01-13 04:11] LABS: CLARITY,URINE CLEAR (CLEAR)
[2020-01-13] MEDS: ACETAMINOPHEN 325 MG TABLET PO PRN ×2 (08:26→18:00)
[2020-01-13] MEDS: CARBIDOPA/LEVODOPA 25 MG/100 MG TABLET PO SCH ×4 (08:56→21:06)
--- NOTE | 2020-01-13 09:56 | CT Report ---
Reason: Hemorrhagic CVA. Assess for progression Procedure Date: 01/13/2020 Accession Number: [id number] / [id number] Procedure: CT - HEAD WO CPT Code: Final Report FULL RESULT: PROCEDURE: HEAD WO INDICATIONS: Hemorrhagic CVA. Assess for progression TECHNIQUE: Noncontrast 4.5 mm thick angled axial sections acquired from the foramen magnum to the vertex. For radiation dose reduction, the following was used: automated exposure control, adjustment of mA and/or kV according to patient size. COMPARISON: CT Head 01/12/2020 FINDINGS: Image quality: Excellent. The ventricular system and cortical sulci demonstrate atrophy, consistent for patient's stated age. There are areas of hypodensity is present in the periventricular and subcortical white matter. The previously identified left superior posterior parietal lobe hyperdensity measuring 25 mm AP by 25 mm transverse with mild surrounding edema is stable compared to prior exam. There is no midline shift. Brainstem is unremarkable. Globes are symmetrical. Sinuses are aerated. Osseous structures are intact. IMPRESSION: 1. Stable appearance of left posterior parietal parenchymal hemorrhage with mild vasogenic edema. There is no midline shift. Reviewed by: Tania Johnson MD on 01/13/2020 9:54 AM PDT Approved by: Tania Johnson MD on 01/13/2020 9:54 AM PDT Station ID: [id number]
--- NOTE | 2020-01-13 13:51 | PROVIDER PROGRESS NOTE ---
Assessment/Plan - Problem List (1) Hemorrhagic stroke Assessment/Plan: The repeat CT scan showed no increase in size of the hemorrhage and no worsening of the localized edema. PT and OT will be ordered. He did cooperate with PT and has abnormal gait probably from Parkinson's but also new right leg weakness. The consult to be accepted and hospice was placed last night, at admission, at the request of the daughter. He is still very functional, however, feeds himself, converses. Continue to avoid Antiplatelet agents or anticoagulants. Since he is not on Lovenox, will start SCDs for prophylaxis of DVT (2) Parkinsons Assessment/Plan: His home Parkinson medications will be continued while here (3) BPH (benign prostatic hyperplasia) Assessment/Plan: He is ordered to continue on his home medicine for this - Current Meds Current Meds: Current Medications Generic Name Dose Route Start Last Admin Trade Name Freq PRN Reason Stop Dose Admin Acetaminophen 650 mg 01/13/20 08:00 01/13/20 08:26 Tylenol PO 650 mg Q4HR PRN Administration Pain or Fever > 38C (100.4F) Carbidopa/Levodopa 2 tab 01/13/20 08:00 01/13/20 11:59 Sinemet 25 Mg/100 Mg PO 2 tab 0800,1230,1700,2130 STIVEN Administration Sodium Chloride 10 ml 01/13/20 01:00 01/13/20 08:26 Normal Saline Flush 0.9% IVP 10 ml 0100,0900,1700 STIVEN Administration - Lab Result Fish Bone Diagrams: 01/12/20 20:25 01/12/20 20:25 - Additional Planning My Orders: My Active Orders 01/13/20 Evaluate and Treat OT [OT] Routine Evaluate and Treat PT [PT] Routine 01/13/20 08:00 Acetaminophen [Tylenol] 650 mg PO Q4HR PRN 01/13/20 13:47 SCDs [RC] QSHIFT 01/13/20 17:00 Carbidopa/Levodopa 25/100 [Sinemet 25 mg/100 mg] 1 tab PO 0800,1230,1700,2130 01/13/20 21:00 Tamsulosin [Flomax] 0.4 mg PO QPM Objective Vital Signs: Vital Signs - 24 hr 01/12/20 01/12/20 01/13/20 18:59 22:18 00:00 Temperature 36.6 C 36.4 C L 36.5 C Heart Rate 62 Heart Rate [ 67 67 Radial] Heart Rate [ Sitting] Respiratory 18 20 18 Rate Blood Pressure 138/82 H Blood Pressure 144/76 H 127/72 [Right Brachial artery] Blood Pressure [Sitting] O2 Saturation 95 93 O2 Saturation [ Sitting] 01/13/20 01/13/20 01/13/20 04:12 07:55 10:45 Temperature 36.3 C L 36.4 C L 36.4 C L Heart Rate 58 L Heart Rate [ 76 70 Radial] Heart Rate [ Sitting] Respiratory 18 16 16 Rate Blood Pressure Blood Pressure 105/65 129/74 [Right Brachial artery] Blood Pressure [Sitting] O2 Saturation 95 95 94 O2 Saturation [ Sitting] 01/13/20 01/13/20 11:40 11:47 Temperature Heart Rate Heart Rate [ 63 Radial] Heart Rate [ 63 Sitting] Respiratory 18 Rate Blood Pressure Blood Pressure 120/59 L [Right Brachial artery] Blood Pressure 120/59 L [Sitting] O2 Saturation 97 O2 Saturation [ 95 Sitting] Oxygen O2 Source Room air I&O (Last 24 Hrs): Intake and Output Totals x24h 01/11/20 01/12/20 01/13/20 23:59 23:59 23:59 Intake Total 200 120 Output Total 100 Balance 200 20 - Results Results: Laboratory Results WBC 6.5 x10^3/uL (4.8-10.8) 01/12/20 20:25 RBC 4.65 10^6/uL (4.70-6.10) L 01/12/20 20:25 Hgb 13.2 g/dL (14.0-18.0) L 01/12/20 20:25 Hct 41.3 % (42.0-52.0) L 01/12/20 20:25 MCV 88.8 fL (80.0-94.0) 01/12/20 20:25 MCH 28.4 pg (27.0-31.0) 01/12/20 20:25 MCHC 32.0 g/dL (32.0-36.0) 01/12/20 20:25 RDW 15.1 % (12.0-15.0) H 01/12/20 20:25 Plt Count 230 10^3/uL (130-450) 01/12/20 20:25 MPV 10.2 fL (7.4-11.4) 01/12/20 20:25 Neut # (Auto) 4.2 10^3/uL (1.5-6.6) 01/12/20 20:25 Lymph # (Auto) 1.7 10^3/uL (1.5-3.5) 01/12/20 20:25 [place] # (Auto) 0.4 10^3/uL (0.0-1.0) 01/12/20 20:25 Eos # (Auto) 0.2 10^3/uL (0.0-0.7) 01/12/20 20:25 Baso # (Auto) 0.0 10^3/uL (0.0-0.1) 01/12/20 20:25 Absolute Nucleated RBC 0.00 x10^3/uL 01/12/20 20: Nucleated RBC % 0.0 /100WBC 01/12/20 20: PT 12.5 secs (9.9-12.6) 01/12/20 20:25 INR 1.1 (0.8-1.2) 01/12/20 20: APTT 27.5 secs (24.9-33.3) 01/12/20 20:25 Sodium 138 mmol/L (135-145) 01/12/20 20:25 Potassium 4.1 mmol/L (3.5-5.0) 01/12/20 20:25 Chloride 104 mmol/L (101-111) 01/12/20 20:25 Carbon Dioxide 26 mmol/L (21-32) 01/12/20 20:25 Anion Gap 8.0 (6-13) 01/12/20 20:25 BUN 16 mg/dL (6-20) 01/12/20 20:25 Creatinine 0.7 mg/dL (0.6-1.2) 01/12/20 20:25 Estimated GFR (MDRD) 106 (>89) 01/12/20 20:25 Glucose 96 mg/dL (70-100) 01/12/20 20:25 Calcium 9.1 mg/dL (8.5-10.3) 01/12/20 20:25 Total Bilirubin 0.9 mg/dL (0.2-1.0) 01/12/20 20:25 AST 15 IU/L (10-42) 01/12/20 20:25 ALT < 10 IU/L (10-60) L 01/12/20 20:25 Alkaline Phosphatase 119 IU/L (42-121) 01/12/20 20:25 Troponin I High Sens 4.2 ng/L (2.3-19.7) 01/12/20 20:25 Total Protein 7.6 g/dL (6.7-8.2) 01/12/20 20:25 Albumin 3.7 g/dL (3.2-5.5) 01/12/20 20:25 Globulin 3.9 g/dL (2.1-4.2) 01/12/20 20:25 Albumin/Globulin Ratio 0.9 (1.0-2.2) L 01/12/20 20:25 Lipase 26 U/L (22-51) 01/12/20 20:25 Urine Color YELLOW 01/13/20 04:00 Urine Clarity CLEAR (CLEAR) 01/13/20 04:00 Urine pH 5.5 PH (5.0-7.5) 01/13/20 04:00 Ur Specific [place] 1.020 (1.002-1.030) 01/13/20 04:00 Urine Protein NEGATIVE mg/dL (NEGATIVE) 01/13/20 04:00 Urine Glucose (UA) NEGATIVE mg/dL (NEGATIVE) 01/13/20 04:00 Urine Ketones NEGATIVE mg/dL (NEGATIVE) 01/13/20 04:00 Urine Occult Blood NEGATIVE (NEGATIVE) 01/13/20 04:00 Urine Nitrite NEGATIVE (NEGATIVE) 01/13/20 04:00 Urine Bilirubin NEGATIVE (NEGATIVE) 01/13/20 04:00 Urine Urobilinogen 0.2 (NORMAL) E.U./dL (NORMAL) 01/13/20 04:00 Ur Leukocyte Esterase NEGATIVE (NEGATIVE) 01/13/20 04:00 Ur Microscopic Review NOT INDICATED 01/13/20 04:00 Urine Culture Comments NOT INDICATED 01/13/20 04:00
--- NOTE | 2020-01-13 13:59 | PHARMACY PROGRESS NOTE ---
- Best Possible Medication History Admit Date and Time: 01/12/202123 Processed by: Pharmacy Medication History completed: Yes Patient Interview: Pt unable to participate Secondary Source(s): Other family member, Pharmacy records, Insurance records (SINEMET CHANGED TO 1 TAB 4 X DAILY PER DAUGHTER) As the person ultimately responsible for medication therapy, providers are able to order a medication from an existing home medication list in [facility] via the "Reconcile Routine" prior to Confirmation of that medication by office support specialist. Such practice is discouraged except when the physician, in their clinical judgment, deems that a medical need exists for a medication without regard to previous use.
--- NOTE | 2020-01-13 16:48 | PROVIDER PROGRESS NOTE ---
Assessment/Plan - Problem List (1) Hemorrhagic stroke Assessment/Plan: A repeat CT head was done this morning and there was no progression of the area of hemorrhage or localized edema around it and no midline shift. This was discussed with the daughter, who was at bedside. Begin rehab post stroke. PT evaluation will be ordered to start today, now that the head CT is completed and there is no extension of the hemorrhage. Depending on his capacity to walk, stand and function, he may need stroke rehab at a SNF. The daughter is very agreeable to this. Avoid antiplatelet agents and anticoagulants. (2) Parkinsons Assessment/Plan: He was seen by PT and the physical therapist describes an underlying gait problem, consistent with Parkinson's. Continue with his anti-Parkinson's meds while here. (3) BPH (benign prostatic hyperplasia) Assessment/Plan: Continue with his home medication for this while here - Current Meds Current Meds: Current Medications Generic Name Dose Route Start Last Admin Trade Name Freq PRN Reason Stop Dose Admin Acetaminophen 650 mg 01/13/20 08:00 01/13/20 08:26 Tylenol PO 650 mg Q4HR PRN Administration Pain or Fever > 38C (100.4F) Sodium Chloride 10 ml 01/13/20 01:00 01/13/20 08:26 Normal Saline Flush 0.9% IVP 10 ml 0100,0900,1700 STIVEN Administration - Lab Result Fish Bone Diagrams: 01/12/20 20:25 01/12/20 20:25 - Additional Planning My Orders: My Active Orders 01/13/20 Evaluate and Treat OT [OT] Routine Evaluate and Treat PT [PT] Routine 01/13/20 08:00 Acetaminophen [Tylenol] 650 mg PO Q4HR PRN 01/13/20 13:47 SCDs [RC] QSHIFT 01/13/20 17:00 Carbidopa/Levodopa 25/100 [Sinemet 25 mg/100 mg] 1 tab PO 0800,1230,1700,2130 01/13/20 21:00 Famotidine [Pepcid] 20 mg PO BID Tamsulosin [Flomax] 0.4 mg PO QPM Subjective - Subjective Patient Reports: Other (Sleeping, awakens to name, follows with eyes, minimally communicative but appears very tired.) Objective Vital Signs: Vital Signs - 24 hr 06/11/2701/12/20 01/13/20 18:59 22:18 00:00 Temperature 36.6 C 36.4 C L 36.5 C Heart Rate 62 Heart Rate [ 67 67 Radial] Heart Rate [ Sitting] Respiratory 18 20 18 Rate Blood Pressure 138/82 H Blood Pressure 144/76 H 127/72 [Right Brachial artery] Blood Pressure [Sitting] O2 Saturation 95 93 O2 Saturation [ Sitting] O2 Saturation [ With Activity] 01/13/20 01/13/20 01/13/20 04:12 07:55 10:45 Temperature 36.3 C L 36.4 C L 36.4 C L Heart Rate 58 L Heart Rate [ 76 70 Radial] Heart Rate [ Sitting] Respiratory 18 16 16 Rate Blood Pressure Blood Pressure 105/65 129/74 [Right Brachial artery] Blood Pressure [Sitting] O2 Saturation 95 95 94 O2 Saturation [ Sitting] O2 Saturation [ With Activity] 01/13/20 01/13/20 01/13/20 11:00 11:40 11:47 Temperature Heart Rate Heart Rate [ 63 Radial] Heart Rate [ 63 63 Sitting] Respiratory 18 Rate Blood Pressure Blood Pressure 120/59 L [Right Brachial artery] Blood Pressure 120/59 L 120/59 L [Sitting] O2 Saturation 97 O2 Saturation [ 95 Sitting] O2 Saturation [ 97 With Activity] Oxygen O2 Source [With Activity] Room air O2 Source Room air I&O (Last 24 Hrs): Intake and Output Totals x24h 01/11/20 01/12/20 01/13/20 23:59 23:59 23:59 Intake Total 200 570 Output Total 100 Balance 200 470 General: Other (Somnolent) HEENT: Mucous membr. moist/pink, Other (Flat facies) Neck: Supple Neuro: Other (R leg weakness, flat affect, bradykinetic) Cardiovascular: Regular rate Respiratory: No respiratory distress Abdomen: Soft Extremities: No edema - Results Results: Laboratory Results WBC 6.5 x10^3/uL (4.8-10.8) 01/12/20 20:25 RBC 4.65 10^6/uL (4.70-6.10) L 01/12/20 20:25 Hgb 13.2 g/dL (14.0-18.0) L 01/12/20 20:25 Hct 41.3 % (42.0-52.0) L 01/12/20: MCV 88.8 fL (80.0-94.0) 01/12/20 20: MCH 28.4 pg (27.0-31.0) 01/12/20: MCHC 32.0 g/dL (32.0-36.0) 01/12/20: RDW 15.1 % (12.0-15.0) H 01/12/20: Plt Count 230 10^3/uL (130-450) 01/12/20: MPV 10.2 fL (7.4-11.4) 01/12/20: Neut # (Auto) 4.2 10^3/uL (1.5-6.6) 01/12/20 Lymph # (Auto) 1.7 10^3/uL (1.5-3.5) 01/12/20: [place] # (Auto) 0.4 10^3/uL (0.0-1.0) 01/12/20: Eos # (Auto) 0.2 10^3/uL (0.0-0.7) 01/12/20: Baso # (Auto) 0.0 10^3/uL (0.0-0.1) 01/12/20: Absolute Nucleated RBC 0.00 x10^3/uL 01/12/20 Nucleated RBC % 0.0 /100WBC 01/12/20: PT 12.5 secs (9.9-12.6) 01/12/20: INR 1.1 (0.8-1.2) 01/12/20: APTT 27.5 secs (24.9-33.3) 01/12/20 20: Sodium 138 mmol/L (135-145) 01/12/20: Potassium 4.1 mmol/L (3.5-5.0) 01/12/20: Chloride 104 mmol/L (101-111) 01/12/20: Carbon Dioxide 26 mmol/L (21-32) 01/12/20: Anion Gap 8.0 (6-13) 01/12/20:25 BUN 16 mg/dL (6-20) 01/12/20 20:25 Creatinine 0.7 mg/dL (0.6-1.2) 01/12/20 20:25 Estimated GFR (MDRD) 106 (>89) 01/12/20 20:25 Glucose 96 mg/dL (70-100) 01/12/20 20:25 Calcium 9.1 mg/dL (8.5-10.3) 01/12/20 20:25 Total Bilirubin 0.9 mg/dL (0.2-1.0) 01/12/20 20:25 AST 15 IU/L (10-42) 01/12/20 20:25 ALT < 10 IU/L (10-60) L 01/12/20 20:25 Alkaline Phosphatase 119 IU/L (42-121) 01/12/20 20:25 Troponin I High Sens 4.2 ng/L (2.3-19.7) 01/12/20 20:25 Total Protein 7.6 g/dL (6.7-8.2) 01/12/20 20:25 Albumin 3.7 g/dL (3.2-5.5) 01/12/20 20:25 Globulin 3.9 g/dL (2.1-4.2) 01/12/20 20:25 Albumin/Globulin Ratio 0.9 (1.0-2.2) L 01/12/20 20:25 Lipase 26 U/L (22-51) 01/12/20 20:25 Urine Color YELLOW 01/13/20 04:00 Urine Clarity CLEAR (CLEAR) 01/13/20 04:00 Urine pH 5.5 PH (5.0-7.5) 01/13/20 04:00 Ur Specific [place] 1.020 (1.002-1.030) 01/13/20 04:00 Urine Protein NEGATIVE mg/dL (NEGATIVE) 01/13/20 04:00 Urine Glucose (UA) NEGATIVE mg/dL (NEGATIVE) 01/13/20 04:00 Urine Ketones NEGATIVE mg/dL (NEGATIVE) 01/13/20 04:00 Urine Occult Blood NEGATIVE (NEGATIVE) 01/13/20 04:00 Urine Nitrite NEGATIVE (NEGATIVE) 01/13/20 04:00 Urine Bilirubin NEGATIVE (NEGATIVE) 01/13/20 04:00 Urine Urobilinogen 0.2 (NORMAL) E.U./dL (NORMAL) 01/13/20 04:00 Ur Leukocyte Esterase NEGATIVE (NEGATIVE) 01/13/20 04:00 Ur Microscopic Review NOT INDICATED 01/13/20 04:00 Urine Culture Comments NOT INDICATED 01/13/20 04:00
[2020-01-13] MEDS: TAMSULOSIN 0.4 MG CAPSULE PO SCH (21:06)
[2020-01-13] MEDS: FAMOTIDINE 20 MG TABLET PO SCH (21:07)
[2020-01-14] MEDS: SODIUM CHLORIDE FLUSH 0.9% 10 ML SYRINGE IVP SCH ×3 (01:19→17:50)
--- NOTE | 2020-01-14 07:41 | Ultrasound Report ---
Reason: R calf pain Procedure Date: 01/14/2020 Accession Number: [id number] / [id number] Procedure: US - Duplex Venous Limited CPT Code: Final Report FULL RESULT: PROCEDURE: Duplex Venous Limited INDICATIONS: JULIAN RIVERA TECHNIQUE: Real-time imaging, as well as color and pulse Doppler interrogation, were performed of the deep veins of both legs from the inguinal ligament to the popliteal fossa. COMPARISON: None. FINDINGS: The deep veins are normally compressible, and free of intraluminal thrombus. Color and pulse Doppler demonstrate normal phasic intravascular flow. There is normal augmentation response to distal compression maneuver. IMPRESSION: No evidence for deep venous thrombosis of the right lower extremity. Reviewed by: Ángel Rodas MD on 01/14/2020 7:40 AM PDT Approved by: Ángel Rodas MD on 01/14/2020 7:40 AM PDT Station ID: [id number]
[2020-01-14] MEDS: CARBIDOPA/LEVODOPA 25 MG/100 MG TABLET PO SCH ×4 (08:17→21:24)
[2020-01-14] MEDS: FAMOTIDINE 20 MG TABLET PO SCH ×2 (08:27→21:24)
[2020-01-14] MEDS: ACETAMINOPHEN 325 MG TABLET PO PRN (12:03)
--- NOTE | 2020-01-14 16:39 | PROVIDER PROGRESS NOTE ---
Assessment/Plan - Problem List (1) Hemorrhagic stroke Assessment/Plan: Patient continues to make slow and minimal progress working with physical therapy because of the new right leg weakness plus the old limitations from Parkinson's. The patient is candidate for SNF for PT rehab. The patient was able to feed himself today, indicating slightly more energy. (2) Parkinsons Assessment/Plan: Patient remains on his home doses of Parkinson's meds. (3) BPH (benign prostatic hyperplasia) Assessment/Plan: She remains on his home BPH meds. (4) Leg pain, right Assessment/Plan: Yesterday afternoon he complained of leg pain in the right calf, the daughter stated this was similar to his new complaint just after developing leg weakness at home. DVT was ruled out by a Doppler ultrasound done at bedside yesterday. This was reported to the daughter today. The daughter herself thinks that possibly he has arthritis pain there or might be in pain after his leg was laying in a funny position or referred pain from his low back. When I examined him in this location during the pain yesterday, palpating his popliteal area and asking if there was any pain or tenderness his answer was "I do not think so", Then he had a negative Homans sign and no calf tenderness to palpation. This makes me suspect it is deeper like arthritic pain as well. - Current Meds Current Meds: Current Medications Generic Name Dose Route Start Last Admin Trade Name Freq PRN Reason Stop Dose Admin Acetaminophen 650 mg 01/13/20 08:00 01/14/20 12:03 Tylenol PO 650 mg Q4HR PRN Administration Pain or Fever > 38C (100.4F) Carbidopa/Levodopa 1 tab 01/13/20 17:00 01/14/20 12:03 Sinemet 25 Mg/100 Mg PO 1 tab 0800,1230,1700,2130 STIVEN Administration Famotidine 20 mg 01/13/20 21:00 01/14/20 08:27 Pepcid PO 20 mg BID STIVEN Administration Sodium Chloride 10 ml 01/13/20 01:00 01/14/20 08:30 Normal Saline Flush 0.9% IVP 10 ml 0100,0900,1700 STIVEN Administration Tamsulosin HCl 0.4 mg 01/13/20 21:00 01/13/20 21:06 Flomax PO 0.4 mg QPM STIVEN Administration - Lab Result Fish Bone Diagrams: 01/12/20 20:25 01/12/20 20:25 - Additional Planning My Orders: My Active Orders 01/13/20 17:00 Carbidopa/Levodopa 25/100 [Sinemet 25 mg/100 mg] 1 tab PO 0800,1230,1700,2130 01/13/20 21:00 Famotidine [Pepcid] 20 mg PO BID Tamsulosin [Flomax] 0.4 mg PO QPM 01/14/20 11:15 COVID-19 REFERENCE TEST Routine 01/14/20 17:00 Senna [Senokot] 8.6 - 17.2 mg PO DAILY 01/15/20 09:00 Docusate Sodium 250Mg Capsule [Colace 250Mg Capsule] 250 - 500 mg PO DAILY Senna [Senokot] 8.6 - 17.2 mg PO DAILY polyethylene glycoL 3350 [Miralax] 17 gm PO DAILY Subjective - Subjective Patient Reports: No Complaints, Other (Less leg pain. I gave the daughter the update about no DVT by ultrasound. Daughter thinks he might just have arthritic pain or referred pain from his low back.) Objective Vital Signs: Vital Signs - 24 hr 01/13/20 01/13/20 01/14/20 17:00 20:51 00:15 Temperature 36.6 C 36.9 C 36.5 C Heart Rate [ Brachial] Heart Rate [ 66 70 66 Radial] Respiratory 18 19 16 Rate Blood Pressure 104/55 L 113/52 L 118/59 L [Right Brachial artery] O2 Saturation 95 96 95 01/14/20 01/14/20 01/14/20 04:50 07:37 14:14 Temperature 36.4 C L 36.5 C 36.5 C Heart Rate [ 65 56 L Brachial] Heart Rate [ 60 Radial] Respiratory 16 16 20 Rate Blood Pressure 125/68 130/70 99/55 L [Right Brachial artery] O2 Saturation 93 95 93 01/14/20 16:05 Temperature 36.3 C L Heart Rate [ 69 Brachial] Heart Rate [ Radial] Respiratory 16 Rate Blood Pressure 116/52 L [Right Brachial artery] O2 Saturation 94 Oxygen O2 Source [With Activity] Room air O2 Source Room air I&O (Last 24 Hrs): Intake and Output Totals x24h 01/12/20 01/13/20 01/14/20 23:59 23:59 23:59 Intake Total 200 1070 30 Output Total 300 250 Balance 200 770 -220 General: Alert, Other (Flat facies but able to smile today) HEENT: Atraumatic, EOMI Neck: Supple, No JVD Neuro: Alert (More mentally alert today), Other (Right leg weakness. Gait is abnormal (see PT notes)) Cardiovascular: Regular rate Respiratory: No respiratory distress Abdomen: Soft Extremities: No edema - Results Results: Laboratory Results WBC 6.5 x10^3/uL (4.8-10.8) 01/12/20 20: RBC 4.65 10^6/uL (4.70-6.10) L 01/12/20: Hgb 13.2 g/dL (14.0-18.0) L 01/12/20: Hct 41.3 % (42.0-52.0) L 01/12/20 20: MCV 88.8 fL (80.0-94.0) 01/12/20: MCH 28.4 pg (27.0-31.0) 01/12/20: MCHC 32.0 g/dL (32.0-36.0) 01/12/20: RDW 15.1 % (12.0-15.0) H 01/12/20: Plt Count 230 10^3/uL (130-450) 01/12/20 20: MPV 10.2 fL (7.4-11.4) 01/12/20 20: Neut # (Auto) 4.2 10^3/uL (1.5-6.6) 01/12/20 20: Lymph # (Auto) 1.7 10^3/uL (1.5-3.5) 01/12/20 20: [place] # (Auto) 0.4 10^3/uL (0.0-1.0) 01/12/20 20: Eos # (Auto) 0.2 10^3/uL (0.0-0.7) 01/12/20 20:25 Baso # (Auto) 0.0 10^3/uL (0.0-0.1) 06/04/20 20:25 Absolute Nucleated RBC 0.00 x10^3/uL 01/12/20 20:25 Nucleated RBC % 0.0 /100WBC 01/12/20 20:25 PT 12.5 secs (9.9-12.6) 01/12/20 20:25 INR 1.1 (0.8-1.2) 01/12/20 20:25 APTT 27.5 secs (24.9-33.3) 01/12/20 20:25 Sodium 138 mmol/L (135-145) 01/12/20 20:25 Potassium 4.1 mmol/L (3.5-5.0) 01/12/20 20:25 Chloride 104 mmol/L (101-111) 01/12/20 20:25 Carbon Dioxide 26 mmol/L (21-32) 01/12/20 20:25 Anion Gap 8.0 (6-13) 01/12/20 20:25 BUN 16 mg/dL (6-20) 01/12/20 20:25 Creatinine 0.7 mg/dL (0.6-1.2) 01/12/20 20:25 Estimated GFR (MDRD) 106 (>89) 01/12/20 20:25 Glucose 96 mg/dL (70-100) 01/12/20 20:25 Calcium 9.1 mg/dL (8.5-10.3) 01/12/20 20:25 Total Bilirubin 0.9 mg/dL (0.2-1.0) 01/12/20 20:25 AST 15 IU/L (10-42) 01/12/20 20:25 ALT < 10 IU/L (10-60) L 01/12/20 20:25 Alkaline Phosphatase 119 IU/L (42-121) 01/12/20 20:25 Troponin I High Sens 4.2 ng/L (2.3-19.7) 01/12/20 20:25 Total Protein 7.6 g/dL (6.7-8.2) 01/12/20 20:25 Albumin 3.7 g/dL (3.2-5.5) 01/12/20 20:25 Globulin 3.9 g/dL (2.1-4.2) 01/12/20 20:25 Albumin/Globulin Ratio 0.9 (1.0-2.2) L 01/12/20 20:25 Lipase 26 U/L (22-51) 01/12/20 20:25 Urine Color YELLOW 01/13/20 04:00 Urine Clarity CLEAR (CLEAR) 01/13/20 04:00 Urine pH 5.5 PH (5.0-7.5) 01/13/20 04:00 Ur Specific [place] 1.020 (1.002-1.030) 01/13/20 04:00 Urine Protein NEGATIVE mg/dL (NEGATIVE) 01/13/20 04:00 Urine Glucose (UA) NEGATIVE mg/dL (NEGATIVE) 01/13/20 04:00 Urine Ketones NEGATIVE mg/dL (NEGATIVE) 01/13/20 04:00 Urine Occult Blood NEGATIVE (NEGATIVE) 01/13/20 04:00 Urine Nitrite NEGATIVE (NEGATIVE) 01/13/20 04:00 Urine Bilirubin NEGATIVE (NEGATIVE) 01/13/20 04:00 Urine Urobilinogen 0.2 (NORMAL) E.U./dL (NORMAL) 01/13/20 04:00 Ur Leukocyte Esterase NEGATIVE (NEGATIVE) 01/13/20 04:00 Ur Microscopic Review NOT INDICATED 01/13/20 04:00 Urine Culture Comments NOT INDICATED 01/13/20 04:00
[2020-01-14] MEDS: SENNA 8.6 MG TABLET PO SCH (18:02)
[2020-01-14] MEDS: TAMSULOSIN 0.4 MG CAPSULE PO SCH (21:24)
[2020-01-15] MEDS: SODIUM CHLORIDE FLUSH 0.9% 10 ML SYRINGE IVP SCH ×3 (03:35→19:21)
[2020-01-15] MEDS: ACETAMINOPHEN 325 MG TABLET PO PRN (04:53)
[2020-01-15] MEDS ORDERED: SENNA 8.6 MG TABLET PO SCH (09:00)
--- NOTE | 2020-01-15 09:29 | PROVIDER PROGRESS NOTE ---
Assessment/Plan - Problem List (1) Hemorrhagic stroke Assessment/Plan: Patient continues to work with physical therapy regarding the new right leg weakness. He will need a SNF for rehab for physical therapy. His [employer] insurance requires authorization for a SNF, they cannot be reached over the weekend. Therefore the earliest possible discharge is tomorrow (today is Thursday). (2) Parkinsons Assessment/Plan: His Parkinson's home medications are continued while here. (3) BPH (benign prostatic hyperplasia) Assessment/Plan: His prostate medicines continue while here. (4) Leg pain, right Assessment/Plan: No DVT by Doppler ultrasound exam. This is probably arthritic pain or referred pain from the spine. He seems to have better pain control overall in the last 24 hours. - Current Meds Current Meds: Current Medications Generic Name Dose Route Start Last Admin Trade Name Freq PRN Reason Stop Dose Admin Acetaminophen 650 mg 01/13/20 08:00 01/15/20 04:53 Tylenol PO 650 mg Q4HR PRN Administration Pain or Fever > 38C (100.4F) Carbidopa/Levodopa 1 tab 01/13/20 17:00 01/14/20 21:24 Sinemet 25 Mg/100 Mg PO 1 tab 0800,1230,1700,2130 STIVEN Administration Famotidine 20 mg 01/13/20 21:00 01/14/20 21:24 Pepcid PO 20 mg BID STIVEN Administration Senna 8.6 - 17.2 mg 01/14/20 17:00 01/14/20 18:02 Senokot PO 8.6 mg DAILY STIVEN Administration Sodium Chloride 10 ml 01/13/20 01:00 01/15/20 03:35 Normal Saline Flush 0.9% IVP Not Given 0100,0900,1700 STIVEN Tamsulosin HCl 0.4 mg 01/13/20 21:00 01/14/20 21:24 Flomax PO 0.4 mg QPM STIVEN Administration - Lab Result Fish Bone Diagrams: 01/12/20 20:25 01/12/20 20:25 - Additional Planning My Orders: My Active Orders 01/14/20 17:00 Senna [Senokot] 8.6 - 17.2 mg PO DAILY 01/15/20 09:00 Docusate Sodium 250Mg Capsule [Colace 250Mg Capsule] 250 - 500 mg PO DAILY polyethylene glycoL 3350 [Miralax] 17 gm PO DAILY Subjective - Subjective Patient Reports: Feeling Better Nursing Reports: Other (He is able to feed himself now) Objective Vital Signs: Vital Signs - 24 hr 01/14/20 01/14/20 01/14/20 14:14 16:05 20:21 Temperature 36.5 C 36.3 C L 36.8 C Heart Rate [ 56 L 69 70 Brachial] Respiratory 20 16 18 Rate Blood Pressure [Left Brachial artery] Blood Pressure 99/55 L 116/52 L 130/69 [Right Brachial artery] O2 Saturation 93 94 95 01/15/20 01/15/20 01/15/20 00:18 05:00 07:59 Temperature 37.0 C 36.7 C 36.7 C Heart Rate [ 62 57 L 64 Brachial] Respiratory 18 18 18 Rate Blood Pressure 131/63 H [Left Brachial artery] Blood Pressure 114/68 110/58 L [Right Brachial artery] O2 Saturation 93 92 95 Oxygen O2 Source [With Activity] Room air O2 Source Room air I&O (Last 24 Hrs): Intake and Output Totals x24h 01/13/20 01/14/20 01/15/20 23:59 23:59 23:59 Intake Total 1070 30 Output Total 300 350 Balance 770 -320 General: Alert, Oriented x3 HEENT: Atraumatic, EOMI Neck: Supple, No JVD Neuro: Alert, Other (R leg weakness. Less bradykinetic this a.m.) Cardiovascular: Regular rate Respiratory: No respiratory distress Abdomen: Soft Extremities: No edema - Results Results: Laboratory Results WBC 6.5 x10^3/uL (4.8-10.8) 01/12/20 20:25 RBC 4.65 10^6/uL (4.70-6.10) L 01/12/20 20:25 Hgb 13.2 g/dL (14.0-18.0) L 01/12/20 20:25 Hct 41.3 % (42.0-52.0) L 01/12/20 20:25 MCV 88.8 fL (80.0-94.0) 01/12/20 20:25 MCH 28.4 pg (27.0-31.0) 01/12/20 20:25 MCHC 32.0 g/dL (32.0-36.0) 01/12/20 20: RDW 15.1 % (12.0-15.0) H 01/12/20 20:25 Plt Count 230 10^3/uL (130-450) 01/12/20 20:25 MPV 10.2 fL (7.4-11.4) 01/12/20 20:25 Neut # (Auto) 4.2 10^3/uL (1.5-6.6) 01/12/20 20: Lymph # (Auto) 1.7 10^3/uL (1.5-3.5) 01/12/20 20:25 [place] # (Auto) 0.4 10^3/uL (0.0-1.0) 01/12/20: Eos # (Auto) 0.2 10^3/uL (0.0-0.7) 01/12/20 20: Baso # (Auto) 0.0 10^3/uL (0.0-0.1) 01/12/20: Absolute Nucleated RBC 0.00 x10^3/uL 01/12/20: Nucleated RBC % 0.0 /100WBC 01/12/20 20: PT 12.5 secs (9.9-12.6) 01/12/20 20: INR 1.1 (0.8-1.2) 01/12/20 20: APTT 27.5 secs (24.9-33.3) 01/12/20 20:25 Sodium 138 mmol/L (135-145) 01/12/20 20:25 Potassium 4.1 mmol/L (3.5-5.0) 01/12/20 20: Chloride 104 mmol/L (101-111) 01/12/20 20:25 Carbon Dioxide 26 mmol/L (21-32) 01/12/20 20:25 Anion Gap 8.0 (6-13) 01/12/20 20:25 BUN 16 mg/dL (6-20) 01/12/20 20:25 Creatinine 0.7 mg/dL (0.6-1.2) 01/12/20 20:25 Estimated GFR (MDRD) 106 (>89) 01/12/20 20:25 Glucose 96 mg/dL (70-100) 01/12/20 20:25 Calcium 9.1 mg/dL (8.5-10.3) 01/12/20 20:25 Total Bilirubin 0.9 mg/dL (0.2-1.0) 01/12/20 20:25 AST 15 IU/L (10-42) 01/12/20 20:25 ALT < 10 IU/L (10-60) L 01/12/20 20:25 Alkaline Phosphatase 119 IU/L (42-121) 01/12/20 20:25 Troponin I High Sens 4.2 ng/L (2.3-19.7) 01/12/20 20:25 Total Protein 7.6 g/dL (6.7-8.2) 01/12/20 20:25 Albumin 3.7 g/dL (3.2-5.5) 01/12/20 20:25 Globulin 3.9 g/dL (2.1-4.2) 01/12/20 20:25 Albumin/Globulin Ratio 0.9 (1.0-2.2) L 01/12/20 20:25 Lipase 26 U/L (22-51) 01/12/20 20:25 Urine Color YELLOW 01/13/20 04:00 Urine Clarity CLEAR (CLEAR) 01/13/20 04:00 Urine pH 5.5 PH (5.0-7.5) 01/13/20 04:00 Ur Specific [place] 1.020 (1.002-1.030) 01/13/20 04:00 Urine Protein NEGATIVE mg/dL (NEGATIVE) 01/13/20 04:00 Urine Glucose (UA) NEGATIVE mg/dL (NEGATIVE) 01/13/20 04:00 Urine Ketones NEGATIVE mg/dL (NEGATIVE) 01/13/20 04:00 Urine Occult Blood NEGATIVE (NEGATIVE) 01/13/20 04:00 Urine Nitrite NEGATIVE (NEGATIVE) 01/13/20 04:00 Urine Bilirubin NEGATIVE (NEGATIVE) 01/13/20 04:00 Urine Urobilinogen 0.2 (NORMAL) E.U./dL (NORMAL) 01/13/20 04:00 Ur Leukocyte Esterase NEGATIVE (NEGATIVE) 01/13/20 04:00 Ur Microscopic Review NOT INDICATED 01/13/20 04:00 Urine Culture Comments NOT INDICATED 01/13/20 04:00 Coronavirus (PCR) NEGATIVE 01/14/20 11:15
[2020-01-15] MEDS: SENNA 8.6 MG TABLET PO SCH (10:03)
[2020-01-15] MEDS: CARBIDOPA/LEVODOPA 25 MG/100 MG TABLET PO SCH ×4 (10:03→22:16)
[2020-01-15] MEDS: FAMOTIDINE 20 MG TABLET PO SCH ×2 (10:03→22:16)
[2020-01-15] MEDS: DOCUSATE SODIUM 250 MG CAPSULE PO SCH (10:04)
[2020-01-15] MEDS: polyethylene glycoL 3350 17 GM PACKET PO SCH (10:11)
[2020-01-15] MEDS ORDERED: MIN OIL/DIMETHICON/COCONUT OIL 92 GM TUBE TOP PRN (12:48)
[2020-01-15] MEDS: TAMSULOSIN 0.4 MG CAPSULE PO SCH (22:16)
[2020-01-16] MEDS: SODIUM CHLORIDE FLUSH 0.9% 10 ML SYRINGE IVP SCH ×3 (00:12→16:11)
[2020-01-16] MEDS: CARBIDOPA/LEVODOPA 25 MG/100 MG TABLET PO SCH ×4 (08:52→19:51)
[2020-01-16] MEDS: DOCUSATE SODIUM 250 MG CAPSULE PO SCH (08:52)
[2020-01-16] MEDS: SENNA 8.6 MG TABLET PO SCH ×2 (08:52→10:40)
[2020-01-16] MEDS: polyethylene glycoL 3350 17 GM PACKET PO SCH (08:52)
[2020-01-16] MEDS: FAMOTIDINE 20 MG TABLET PO SCH ×2 (10:40→19:50)
--- NOTE | 2020-01-16 11:12 | Discharge Plan ---
"Discharge Plan for SNF / [facility] - Discharge Plan And Transition Orders Problem Reviewed?: Yes Disposition: 03 SNF DC/Xfer Condition: Stable Allergies and Adverse Reactions: Allergies Allergy/AdvReac Type Severity Reaction Status Date / Time No Known Drug Allergies Allergy Verified 01/12/20 18:54 Health Concerns: Admitted with new right leg weakness and CT of the brain showed a hemorrhagic stroke. He has been on no antiplatelet agents or anticoagulants. A CT of the head was repeated and there was no expansion of the hemorrhage or signs of mass- effect. He has been progressing with physical therapy and Occupational Therapy after this stroke, and needs more rehab at a SNF. There is longstanding Parkinson's disease and BPH, which are stable on his home medications. Plan of Treatment: PT and OT rehab daily at SNF. Continue with his usual medications. Avoid antiplatelet agents and anticoagulants. Care Goals: Improvement in symptoms and stabilization are the goals. Return back to his home and previous living situation with his daughter. Assessment: The patient and daughter are agreeable with the plan. - SNF / [facility] Transition Orders Admit to (Facility): [facility] in [place], [place] Discharge Diagnosis: 1) Hemorrhagic stroke, with right leg weakness. 2) Parkinson's disease. 3) BPH. 4) Right leg pain. 5) Osteoarthritis. 6) Dementia. 7) AAA, not a surgical candidate. 8) Code status: DNR Medicare Certification Statement: I certify that [facility] care is medically necessary on a continuing basis for any of the conditions for which she/he is receiving care during hospitalization. Notify PCP of admission and forward orders to primary provider for signature. Weight on admission and: Weekly Call PCP immediately if weight increases by: 5 kg Other Notification Orders: Call PCP immediately if patient develops dyspnea, chest pain/tightness or edema. House Bowel Program: Yes Additional Bowel Program Orders: If no BM after 2 days, nurse may give M.O.M. 30ml PO PRN and/or ducolax Supp 1 IN and/or BASSEM 250mg P.O., and/or senna 1-2 tabs PO. On day 3 nurse may give repeat above order until residents constipation is resolved. Annual Influenza Vaccine (between Apr 10 and November 07): Yes Two-step PPD per [facility] [phone] or approved exception documents: Yes Treatments & Other Orders: Daily OT and PT Oxygen Orders: None Medication Orders: PLEASE REFER TO THE DISCHARGE MEDICATION LIST. Insulin Orders?: No - Diet Type: Geriatric (Cut up food) Texture: Regular Liquids: Thin May have monthly special meal: Yes - Therapies | Activity Therapy: Evaluation | Treat if indicated: Speech, PT, OT Rehabilitation Potential: Maximize functional status Activity: Activity as Tolerated Weight Bearing: Full Weight Assistance Devices: Walker Follow Up: This will be determined after his stay at the SNF."
--- NOTE | 2020-01-16 11:17 | DISCHARGE SUMMARY ---
Discharge Summary Condition at Discharge: Stable Discharge Disposition: SNF DC/Xfer - HPI History of Present Illness: From the admission H&P of Dr. Toni Her: Patient is an 89-year-old male with history of dementia, Parkinson's disease on Sinemet, a very large abdominal aortic aneurysm for which he is not a surgical candidate, history of frequent falls and urinary retention on Flomax who presented today ED having been brought in by his daughter with right lower extremity weakness. He woke up this morning around 8 am complaining that his right leg was not working. He also complained of pain behind his right knee. He was asked by the on-call physician for his primary care physician to go to the ED for evaluation. This took all day and he finally presented to the ED around 6 PM. In the ED work-up included a CT scan of the brain which showed Subcortical intraparenchymal hematoma involving the left parietal lobe at the vertex with mild associated vasogenic edema. No midline shift or other evidence of herniation was seen. The radiologic differential included hemorrhage associated with an underlying mass and a follow-up contrast-enhanced MRI for further evaluation was recommended The patient had no other neurologic deficits. Though he has a history of frequent falls his daughter denied any recent trauma. She also reports that the patient's blood pressure generally runs on the low low side with a systolic around 90s. At bedside he is resting comfortably. He is awake, alert and oriented to place and reason for presentation. He is slightly tremulous due to his Parkinson's. On a separate note the patient had presented to the hospital yesterday for CT s cans of the thorax, abdomen and pelvis ordered by his primary care physician. This was likely to monitor his aortic aneurysm. It showed a slight increase in the infrarenal abdominal aortic aneurysm which measured 8 x 7.5 cm. There was no evidence of aortic rupture. The CT angiogram of the thorax was negative for pulmonary embolism, aortic dissection. It showed left basilar consolidation which could represent atelectasis, aspiration pneumonia. There was a small loculated left pleural effusion. The patient's daughter opted not to have any further intervention done. And requested comfort measures. As a result the patient was admitted and hospice consulted. - ALLERGIES Allergies/Adverse Reactions: Allergies Allergy/AdvReac Type Severity Reaction Status Date / Time No Known Drug Allergies Allergy Verified 01/12/20 18:54 - MEDICATIONS Home Medications: Ambulatory Orders Medication Instructions Recorded Confirmed Tamsulosin HCl [Flomax] 0.4 mg PO QPM 02/18/15 01/13/20 Carbidopa/Levodopa 1 tab PO 0800,1230,1700,2130 01/13/20 01/13/20 [Carbidopa-Levodopa 25-100 Tab] - LABS Result Diagrams: 01/12/20 20:25 01/12/20 20:25
--- NOTE | 2020-01-16 14:21 | PROVIDER PROGRESS NOTE ---
Assessment/Plan - Problem List (1) Hemorrhagic stroke Assessment/Plan: Progressing with PT. Awaiting authorization from [facility] for discharge to a SNF for rehab post-stroke. (2) Parkinsons Assessment/Plan: He remains on his same meds as at home (3) BPH (benign prostatic hyperplasia) Assessment/Plan: Remains on his same meds as at home (4) Leg pain, right Assessment/Plan: This was evaluated with duplex Doppler of the right leg the day after admission, negative for DVT. The daughter thinks this may be referred pain from his low back or arthritic pain. There has been no complaints of pain in this area for the last 2 days. - Current Meds Current Meds: Current Medications Generic Name Dose Route Start Last Admin Trade Name Freq PRN Reason Stop Dose Admin Acetaminophen 650 mg 01/13/20 08:00 01/15/20 04:53 Tylenol PO 650 mg Q4HR PRN Administration Pain or Fever > 38C (100.4F) Carbidopa/Levodopa 1 tab 01/13/20 17:00 01/16/20 12:58 Sinemet 25 Mg/100 Mg PO 1 tab 0800,1230,1700,2130 STIVEN Administration Docusate Sodium 250 - 500 mg 01/15/20 09:00 01/16/20 08:52 Colace 250mg Capsule PO 250 mg DAILY STIVEN Administration Famotidine 20 mg 01/13/20 21:00 01/16/20 10:40 Pepcid PO 20 mg BID STIVEN Administration Polyethylene Glycol 17 gm 01/15/20 09:00 01/16/20 08:52 Miralax PO 17 gm DAILY STIVEN Administration Senna 8.6 - 17.2 mg 01/14/20 17:00 01/16/20 10:40 Senokot PO Not Given DAILY STIVEN Sodium Chloride 10 ml 01/13/20 01:00 01/16/20 08:56 Normal Saline Flush 0.9% IVP 10 ml 0100,0900,1700 STIVEN Administration Tamsulosin HCl 0.4 mg 01/13/20 21:00 01/15/20 22:16 Flomax PO 0.4 mg QPM STIVEN Administration - Lab Result Fish Bone Diagrams: 01/12/20 20:25 01/12/20 20:25 Subjective - Subjective Patient Reports: Other (No new complaints.) Objective Vital Signs: Vital Signs - 24 hr 01/15/20 01/15/20 01/16/20 16:55 19:19 00:08 Temperature 36.7 C 36.8 C 36.7 C Heart Rate [ 52 L 63 58 L Brachial] Respiratory 20 20 14 Rate Blood Pressure 108/53 L 114/62 [Left Brachial artery] Blood Pressure 109/66 [Right Brachial artery] O2 Saturation 96 93 93 01/16/20 01/16/20 01/16/20 03:45 08:25 12:23 Temperature 36.7 C 36.5 C 36.3 C L Heart Rate [ 66 68 67 Brachial] Respiratory 20 18 18 Rate Blood Pressure 109/73 113/66 [Left Brachial artery] Blood Pressure 102/68 [Right Brachial artery] O2 Saturation 97 94 94 Oxygen O2 Source [With Activity] Room air O2 Source Room air I&O (Last 24 Hrs): Intake and Output Totals x24h 01/14/20 01/15/20 01/16/20 23:59 23:59 23:59 Intake Total 30 510 480 Output Total 350 400 275 Balance -320 110 205 - Results Results: Laboratory Results WBC 6.5 x10^3/uL (4.8-10.8) 01/12/20 20:25 RBC 4.65 10^6/uL (4.70-6.10) L 01/12/20 20:25 Hgb 13.2 g/dL (14.0-18.0) L 01/12/20 20:25 Hct 41.3 % (42.0-52.0) L 01/12/20 20:25 MCV 88.8 fL (80.0-94.0) 01/12/20 20:25 MCH 28.4 pg (27.0-31.0) 01/12/20 20:25 MCHC 32.0 g/dL (32.0-36.0) 01/12/20 20:25 RDW 15.1 % (12.0-15.0) H 01/12/20 20:25 Plt Count 230 10^3/uL (130-450) 01/12/20 20:25 MPV 10.2 fL (7.4-11.4) 01/12/20 20:25 Neut # (Auto) 4.2 10^3/uL (1.5-6.6) 01/12/20 20:25 Lymph # (Auto) 1.7 10^3/uL (1.5-3.5) 01/12/20 20:25 [place] # (Auto) 0.4 10^3/uL (0.0-1.0) 01/12/20 20:25 Eos # (Auto) 0.2 10^3/uL (0.0-0.7) 01/12/20 20:25 Baso # (Auto) 0.0 10^3/uL (0.0-0.1) 01/12/20 20:25 Absolute Nucleated RBC 0.00 x10^3/uL 01/12/20 20: Nucleated RBC % 0.0 /100WBC 01/12/20 20: PT 12.5 secs (9.9-12.6) 01/12/20 20: INR 1.1 (0.8-1.2) 01/12/20 20: APTT 27.5 secs (24.9-33.3) 01/12/20 20:25 Sodium 138 mmol/L (135-145) 01/12/20 20:25 Potassium 4.1 mmol/L (3.5-5.0) 01/12/20 20: Chloride 104 mmol/L (101-111) 01/12/20: Carbon Dioxide 26 mmol/L (21-32) 01/12/20 20:25 Anion Gap 8.0 (6-13) 01/12/20 20:25 BUN 16 mg/dL (6-20) 01/12/20 20:25 Creatinine 0.7 mg/dL (0.6-1.2) 01/12/20 20:25 Estimated GFR (MDRD) 106 (>89) 01/12/20 20:25 Glucose 96 mg/dL (70-100) 01/12/20 20:25 Calcium 9.1 mg/dL (8.5-10.3) 01/12/20 20:25 Total Bilirubin 0.9 mg/dL (0.2-1.0) 01/12/20 20:25 AST 15 IU/L (10-42) 01/12/20 20:25 ALT < 10 IU/L (10-60) L 01/12/20 20:25 Alkaline Phosphatase 119 IU/L (42-121) 01/12/20 20:25 Troponin I High Sens 4.2 ng/L (2.3-19.7) 01/12/20 20:25 Total Protein 7.6 g/dL (6.7-8.2) 01/12/20 20:25 Albumin 3.7 g/dL (3.2-5.5) 01/12/20 20:25 Globulin 3.9 g/dL (2.1-4.2) 01/12/20 20:25 Albumin/Globulin Ratio 0.9 (1.0-2.2) L 01/12/20 20:25 Lipase 26 U/L (22-51) 01/12/20 20:25 Urine Color YELLOW 01/13/20 04:00 Urine Clarity CLEAR (CLEAR) 01/13/20 04:00 Urine pH 5.5 PH (5.0-7.5) 01/13/20 04:00 Ur Specific [place] 1.020 (1.002-1.030) 01/13/20 04:00 Urine Protein NEGATIVE mg/dL (NEGATIVE) 01/13/20 04:00 Urine Glucose (UA) NEGATIVE mg/dL (NEGATIVE) 01/13/20 04:00 Urine Ketones NEGATIVE mg/dL (NEGATIVE) 01/13/20 04:00 Urine Occult Blood NEGATIVE (NEGATIVE) 01/13/20 04:00 Urine Nitrite NEGATIVE (NEGATIVE) 01/13/20 04:00 Urine Bilirubin NEGATIVE (NEGATIVE) 01/13/20 04:00 Urine Urobilinogen 0.2 (NORMAL) E.U./dL (NORMAL) 01/13/20 04:00 Ur Leukocyte Esterase NEGATIVE (NEGATIVE) 01/13/20 04:00 Ur Microscopic Review NOT INDICATED 01/13/20 04:00 Urine Culture Comments NOT INDICATED 01/13/20 04:00 Coronavirus (PCR) NEGATIVE 01/14/20 11:15
[2020-01-16] MEDS: TAMSULOSIN 0.4 MG CAPSULE PO SCH (19:50)
[2020-01-17] MEDS: SODIUM CHLORIDE FLUSH 0.9% 10 ML SYRINGE IVP SCH ×4 (00:42→23:38)
[2020-01-17] MEDS: polyethylene glycoL 3350 17 GM PACKET PO SCH (08:39)
[2020-01-17] MEDS: DOCUSATE SODIUM 250 MG CAPSULE PO SCH (08:39)
[2020-01-17] MEDS: amLODIPine 5 MG TABLET PO SCH (08:39)
[2020-01-17] MEDS: FAMOTIDINE 20 MG TABLET PO SCH ×2 (08:39→20:46)
[2020-01-17] MEDS: SENNA 8.6 MG TABLET PO SCH (08:39)
[2020-01-17] MEDS: CARBIDOPA/LEVODOPA 25 MG/100 MG TABLET PO SCH ×4 (08:39→20:46)
[2020-01-17] MEDS: ACETAMINOPHEN 325 MG TABLET PO PRN (10:04)
--- NOTE | 2020-01-17 13:31 | PROVIDER PROGRESS NOTE ---
Assessment/Plan - Problem List (1) Hemorrhagic stroke Assessment/Plan: A repeat CT head revealed there was no progression of the area of hemorrhage or localized edema around it and no midline shift. there is no extension of the hemorrhage. Patient feed by himself, patient cooperated with PT/OT, and Progre ssing with PT/OT. Patient's daughter initially agreed to have hospice care for patient, now The daughter is very agreeable to the plan to d/c to SNF. Awaiting authorization from [facility] for discharge to a SNF for rehab post-stroke. (2) Parkinsons Assessment/Plan: stable, He remains on his same meds as at home (3) BPH (benign prostatic hyperplasia) Assessment/Plan: stable, Remains on his same meds as at home (4) Leg pain, right Assessment/Plan: stable, There has been no complaints of pain in this area for the last 3 days. The daughter thinks this may be referred pain from his low back or arthritic pain. This was evaluated with duplex Doppler of the right leg the day after admission, negative for DVT. (5)abdominal artery aneurysm CT angiogram of abdomen showed a slight increase in the infrarenal abdominal aortic aneurysm which measured 8 x 7.5 cm. There was no evidence of aortic rupture. The CT angiogram of the thorax was negative for pulmonary embolism, aortic dissection. The patient's daughter opted not to have any further intervention done, she requested comfort measures. (6)comfortable measure. Because the patient has left hemorrhage stroke and significant AAA aneurysm, patient family requested comfortable management. because the patient continue cooperated and improved for his hemorrhagic stroke, we plain and the family agreed to have retirement facility for his discharge plan for patient - Current Meds Current Meds: Current Medications Generic Name Dose Route Start Last Admin Trade Name Freq PRN Reason Stop Dose Admin Acetaminophen 650 mg 01/13/20 08:00 01/17/20 10:04 Tylenol PO 650 mg Q4HR PRN Administration Pain or Fever > 38C (100.4F) Amlodipine Besylate 5 mg 01/17/20 09:00 01/17/20 08:39 Norvasc PO 5 mg DAILY STIVEN Administration Carbidopa/Levodopa 1 tab 01/13/20 17:00 01/17/20 11:55 Sinemet 25 Mg/100 Mg PO 1 tab 0800,1230,1700,2130 STIVEN Administration Docusate Sodium 250 - 500 mg 01/15/20 09:00 01/17/20 08:39 Colace 250mg Capsule PO Not Given DAILY STIVEN Famotidine 20 mg 01/13/20 21:00 01/17/20 08:39 Pepcid PO 20 mg BID STIVEN Administration Polyethylene Glycol 17 gm 01/15/20 09:00 01/17/20 08:39 Miralax PO Not Given DAILY STIVEN Senna 8.6 - 17.2 mg 01/14/20 17:00 01/17/20 08:39 Senokot PO Not Given DAILY STIVEN Sodium Chloride 10 ml 01/13/20 01:00 01/17/20 08:40 Normal Saline Flush 0.9% IVP 10 ml 010,899,1699 STIVEN Administration Tamsulosin HCl 0.4 mg 01/13/20 21:00 01/16/20 19:50 Flomax PO 0.4 mg QPM STIVEN Administration - Lab Result Fish Bone Diagrams: 01/12/20 20:25 01/12/20 20:25 - Additional Planning My Orders: My Active Orders 01/17/20 09:00 amLODIPine [Norvasc] 5 mg PO DAILY Subjective - Subjective Patient Reports: Feeling Better Nursing Reports: No Complaints Objective Vital Signs: Vital Signs - 24 hr 01/16/20 01/16/20 01/16/20 15:54 16:19 19:41 Temperature 36.5 C Heart Rate [ 67 59 L 62 Brachial] Respiratory 19 Rate Blood Pressure 130/69 [Left Brachial artery] Blood Pressure 139/73 H 110/63 [Right Brachial artery] O2 Saturation 95 100 01/16/20 01/17/20 01/17/20 19:52 00:30 04:11 Temperature 36.7 C 36.3 C L 36.3 C L Heart Rate [ 53 L 56 L Brachial] Respiratory 20 18 16 Rate Blood Pressure 136/58 H [Left Brachial artery] Blood Pressure 146/74 H [Right Brachial artery] O2 Saturation 95 95 01/17/20 01/17/20 08:05 10:14 Temperature 36.4 C L Heart Rate [ 58 L 62 Brachial] Respiratory 16 Rate Blood Pressure 148/77 H 117/69 [Left Brachial artery] Blood Pressure [Right Brachial artery] O2 Saturation 96 Oxygen O2 Source [With Activity] Room air O2 Source Room air I&O (Last 24 Hrs): Intake and Output Totals x24h 01/15/20 01/16/20 01/17/20 23:59 23:59 23:59 Intake Total 510 580 720 Output Total 400 325 250 Balance 110 255 470 General: Alert, No acute distress HEENT: Atraumatic Neck: Supple Lymphatic: no adenopathy Neuro: Alert, Non Focal Cardiovascular: Regular rate, Normal S1, Normal S2 Respiratory: Chest non-tender, No respiratory distress, Breath sounds nml Abdomen: Normal bowel sounds, Soft Extremities: Normal pulses - Results Results: Laboratory Results WBC 6.5 x10^3/uL (4.8-10.8) 01/12/20 20: RBC 4.65 10^6/uL (4.70-6.10) L 01/12/20 20: Hgb 13.2 g/dL (14.0-18.0) L 01/12/20: Hct 41.3 % (42.0-52.0) L 01/12/20: MCV 88.8 fL (80.0-94.0) 01/12/20: MCH 28.4 pg (27.0-31.0) 01/12/20: MCHC 32.0 g/dL (32.0-36.0) 01/12/20: RDW 15.1 % (12.0-15.0) H 01/12/20: Plt Count 230 10^3/uL (130-450) 01/12/20: MPV 10.2 fL (7.4-11.4) 01/12/20 20: Neut # (Auto) 4.2 10^3/uL (1.5-6.6) 01/12/20 20:25 Lymph # (Auto) 1.7 10^3/uL (1.5-3.5) 01/12/20 20: [place] # (Auto) 0.4 10^3/uL (0.0-1.0) 01/12/20 20:25 Eos # (Auto) 0.2 10^3/uL (0.0-0.7) 01/12/20 20: Baso # (Auto) 0.0 10^3/uL (0.0-0.1) 01/12/20 20:25 Absolute Nucleated RBC 0.00 x10^3/uL 01/12/20 20:25 Nucleated RBC % 0.0 /100WBC 01/12/20 20:25 PT 12.5 secs (9.9-12.6) 01/12/20 20:25 INR 1.1 (0.8-1.2) 01/12/20 20:25 APTT 27.5 secs (24.9-33.3) 01/12/20 20:25 Sodium 138 mmol/L (135-145) 01/12/20 20:25 Potassium 4.1 mmol/L (3.5-5.0) 01/12/20 20:25 Chloride 104 mmol/L (101-111) 01/12/20 20:25 Carbon Dioxide 26 mmol/L (21-32) 01/12/20 20:25 Anion Gap 8.0 (6-13) 01/12/20 20:25 BUN 16 mg/dL (6-20) 01/12/20 20:25 Creatinine 0.7 mg/dL (0.6-1.2) 01/12/20 20:25 Estimated GFR (MDRD) 106 (>89) 01/12/20 20:25 Glucose 96 mg/dL (70-100) 01/12/20 20:25 Calcium 9.1 mg/dL (8.5-10.3) 01/12/20 20:25 Total Bilirubin 0.9 mg/dL (0.2-1.0) 01/12/20 20:25 AST 15 IU/L (10-42) 01/12/20 20:25 ALT < 10 IU/L (10-60) L 01/12/20 20:25 Alkaline Phosphatase 119 IU/L (42-121) 01/12/20 20:25 Troponin I High Sens 4.2 ng/L (2.3-19.7) 01/12/20 20:25 Total Protein 7.6 g/dL (6.7-8.2) 01/12/20 20:25 Albumin 3.7 g/dL (3.2-5.5) 01/12/20 20:25 Globulin 3.9 g/dL (2.1-4.2) 01/12/20 20:25 Albumin/Globulin Ratio 0.9 (1.0-2.2) L 01/12/20 20:25 Lipase 26 U/L (22-51) 01/12/20 20:25 Urine Color YELLOW 01/13/20 04:00 Urine Clarity CLEAR (CLEAR) 01/13/20 04:00 Urine pH 5.5 PH (5.0-7.5) 01/13/20 04:00 Ur Specific [place] 1.020 (1.002-1.030) 01/13/20 04:00 Urine Protein NEGATIVE mg/dL (NEGATIVE) 01/13/20 04:00 Urine Glucose (UA) NEGATIVE mg/dL (NEGATIVE) 01/13/20 04:00 Urine Ketones NEGATIVE mg/dL (NEGATIVE) 01/13/20 04:00 Urine Occult Blood NEGATIVE (NEGATIVE) 01/13/20 04:00 Urine Nitrite NEGATIVE (NEGATIVE) 01/13/20 04:00 Urine Bilirubin NEGATIVE (NEGATIVE) 01/13/20 04:00 Urine Urobilinogen 0.2 (NORMAL) E.U./dL (NORMAL) 01/13/20 04:00 Ur Leukocyte Esterase NEGATIVE (NEGATIVE) 01/13/20 04:00 Ur Microscopic Review NOT INDICATED 01/13/20 04:00 Urine Culture Comments NOT INDICATED 01/13/20 04:00 Coronavirus (PCR) NEGATIVE 01/14/20 11:15 Sepsis Event Note (H) - Evaluation Current Stage of Sepsis: Ruled out ABX Reporting Has patient been on IV antibiotics over the past 48 hours?: No Current Medications - Current Medications Current Medications: Active Medications Acetaminophen (Tylenol) 650 mg PO Q4HR PRN PRN Reason: Pain or Fever > 38C (100.4F) Last Admin: 01/17/20 10:04 Dose: 650 mg Amlodipine Besylate (Norvasc) 5 mg PO DAILY [facility] Last Admin: 01/17/20 08:39 Dose: 5 mg Carbidopa/Levodopa (Sinemet 25 Mg/100 Mg) 1 tab PO 0800,1230,1700,2130 [facility] Last Admin: 01/17/20 11:55 Dose: 1 tab Docusate Sodium (Colace 250mg Capsule) 250 - 500 mg PO DAILY [facility] Last Admin: 01/17/20 08:39 Dose: Not Given Famotidine (Pepcid) 20 mg PO BID [facility] Last Admin: 01/17/20 08:39 Dose: 20 mg Mineral Oil (Cavilon) 1 applic TOP PRN PRN PRN Reason: Skin Care Polyethylene Glycol (Miralax) 17 gm PO DAILY [facility] Last Admin: 01/17/20 08:39 Dose: Not Given Senna (Senokot) 8.6 - 17.2 mg PO DAILY [facility] Last Admin: 01/17/20 08:39 Dose: Not Given Sodium Chloride (Normal Saline Flush 0.9%) 10 ml IVP PRN PRN PRN Reason: NEEDED PER PROVIDER ORDERS Sodium Chloride (Normal Saline Flush 0.9%) 10 ml IVP 0100,0900,1700 [facility] Last Admin: 01/17/20 08:40 Dose: 10 ml Tamsulosin HCl (Flomax) 0.4 mg PO QPM [facility] Last Admin: 01/16/20 19:50 Dose: 0.4 mg Tamsulosin HCl [Flomax] 0.4 mg PO QPM 02/18/15 Carbidopa/Levodopa [Carbidopa-Levodopa 25-100 Tab] 1 tab PO 0800,1230,1700,2130 01/13/20
[2020-01-17] MEDS: TAMSULOSIN 0.4 MG CAPSULE PO SCH (20:46)
[2020-01-18] MEDS: polyethylene glycoL 3350 17 GM PACKET PO SCH (08:57)
[2020-01-18] MEDS: FAMOTIDINE 20 MG TABLET PO SCH (08:57)
[2020-01-18] MEDS: amLODIPine 5 MG TABLET PO SCH (08:57)
[2020-01-18] MEDS: CARBIDOPA/LEVODOPA 25 MG/100 MG TABLET PO SCH ×2 (08:57→12:21)
[2020-01-18] MEDS: DOCUSATE SODIUM 250 MG CAPSULE PO SCH (08:57)
[2020-01-18] MEDS: SENNA 8.6 MG TABLET PO SCH (08:58)
[2020-01-18] MEDS: SODIUM CHLORIDE FLUSH 0.9% 10 ML SYRINGE IVP SCH (09:05)
[2020-01-18] MEDS: ACETAMINOPHEN 325 MG TABLET PO PRN (10:35)
--- NOTE | 2020-01-18 10:38 | Discharge Plan ---
"Discharge Plan for SNF / [facility] - Discharge Plan And Transition Orders Problem Reviewed?: Yes Disposition: [address] [facility] DC/Xfer Condition: Poor Allergies and Adverse Reactions: Allergies Allergy/AdvReac Type Severity Reaction Status Date / Time No Known Drug Allergies Allergy Verified 01/12/20 18:54 Health Concerns: Admitted with new right leg weakness and CT of the brain showed a hemorrhagic stroke. He has been on no antiplatelet agents or anticoagulants. A CT of the head was repeated and there was no expansion of the hemorrhage or signs of mass- effect. He has been progressing with physical therapy and Occupational Therapy after this stroke, and needs more rehab at a SNF. There is longstanding Parkinson's disease and BPH, which are stable on his home medications. CT angiogram of abdomen showed a slight increase in the infrarenal abdominal aortic aneurysm which measured 8 x 7.5 cm. There was no evidence of aortic rupture. The patient's daughter opted not to have any further intervention done. Plan of Treatment: PT and OT rehab daily at SNF. Continue with his usual medications. add amlodipine for his BP control Avoid antiplatelet agents and anticoagulants. Care Goals: Improvement in symptoms and stabilization are the goals. Return back to his home and previous living situation with his daughter. Assessment: The patient and daughter are agreeable with the plan. - SNF / [facility] Transition Orders Admit to (Facility): [facility] Under the care of (Name): Medical Provider of [facility] Discharge Diagnosis: Hemorrhagic stroke, parkinsons, BPH, right leg pain, AAA Medicare Certification Statement: I certify that Post Hospital custodial care is medically necessary on a continuing basis for any of the conditions for which she/he is receiving care during hospitalization. Notify PCP of admission and forward orders to primary provider for signature. Weight on admission and: Daily Call PCP immediately if weight increases by: 2 kg Other Notification Orders: Call PCP immediately if patient develops dyspnea, chest pain/tightness or edema. House Bowel Program: Yes Additional Bowel Program Orders: If no BM after 2 days, nurse may give M.O.M. 30ml PO PRN and/or ducolax Supp 1 SC and/or BASSEM 250mg P.O., and/or senna 1-2 tabs PO. On day 3 nurse may give repeat above order until residents constipation is resolved. Annual Influenza Vaccine (between Apr 10 and November 07): Yes Two-step PPD per [facility] [phone] or approved exception documents: Yes Treatments & Other Orders: PT and OT rehab daily at SNF. Continue with his usual medications. add amlodipine for his BP control. Avoid antiplatelet agents and anticoagulants. Medication Orders: PLEASE REFER TO THE DISCHARGE MEDICATION LIST. Insulin Orders?: No - Medications New Prescriptions: amLODIPine [Norvasc] 5 mg PO DAILY #10 tablet - Diet Type: Geriatric Texture: Regular Liquids: Thin May have monthly special meal: Yes - Therapies | Activity Therapy: Evaluation | Treat if indicated: PT, OT Rehabilitation Potential: Maximize functional status Activity: Activity as Tolerated"
--- NOTE | 2020-01-18 10:54 | DISCHARGE SUMMARY ---
Discharge Summary Admit Date: 01/12/20 Discharge Date: 01/18/20 Discharging Provider: Emile Oscar Primary Care Provider: Ginger Gómez Code Status: Do Not Attempt Resuscitation Condition at Discharge: Poor Discharge Disposition: 03 SNF DC/Xfer Discharge Facility Name: [facility] - DIAGNOSES Admission Diagnoses: (1) Hemorrhagic stroke (2) Parkinsons (3) BPH with urinary obstruction Discharge Diagnoses with Status of Each Condition: (1) Hemorrhagic stroke stable, The repeat CT head revealed there was no progression of the area of hemorrhage or localized edema around it and no midline shift. there is no exten roxanne of the hemorrhage. Patient feed by himself, patient cooperated with PT/OT, and Progressing with PT/OT. Patient's daughter initially agreed to have hospice care for patient, now The daughter is very agreeable to the plan to d/c to SNF. hold anti-platelet or blood thinner. (2) Parkinsons Assessment/Plan: chronic, resume home meds (3) BPH (benign prostatic hyperplasia) Assessment/Plan: chronic, resume home meds (4) Leg pain, right Assessment/Plan: resolved. There has been no complaints of pain in this area for the last 4 days. This was evaluated with duplex Doppler of the right leg the day after admission, negative for DVT. (5)abdominal artery aneurysm CT angiogram of abdomen showed a slight increase in the infrarenal abdominal aortic aneurysm which measured 8 x 7.5 cm. There was no evidence of aortic rupture. The CT angiogram of the thorax was negative for pulmonary embolism, aortic dissection. The patient's daughter opted not to have any further intervention done, she requested comfort measures. (6)hypotension pt had one time hypotension at BP 77/47 before the discharge. I immediately assessment the patient, patient was asymptomatic, patient was sitting the chair to talk with his daughter. when I come in, patient talked with me. repeat blood pressure measurement show his blood pressure is as his baseline. amlodipine is hold. (7)comfortable measure. Because the patient has hemorrhage stroke and significant AAA aneurysm, patient's daughter requested comfortable management. Patient's daughter initially agreed to have hospice care for patient. Patient feed by himself, patient cooperated with PT/OT, and Progressing with PT/OT. Then pt's daughter is very agreeable to the plan to d/c to SNF. - HPI History of Present Illness: refer from Dr. Her's HPI on 01/12/2020 Patient is an 89-year-old male with history of dementia, Parkinson's disease on Sinemet, a very large abdominal aortic aneurysm for which he is not a surgical candidate, history of frequent falls and urinary retention on Flomax who presented today ED having been brought in by his daughter with right lower extremity weakness. He woke up this morning around 8 am complaining that his right leg was not working. He also complained of pain behind his right knee. He was asked by the on-call physician for his primary care physician to go to the ED for evaluation. This took all day and he finally presented to the ED around 6 PM. In the ED work-up included a CT scan of the brain which showed Subcortical intraparenchymal hematoma involving the left parietal lobe at the vertex with mild associated vasogenic edema. No midline shift or other evidence of herni ation was seen. The radiologic differential included hemorrhage associated with an underlying mass and a follow-up contrast-enhanced MRI for further evaluation was recommended The patient had no other neurologic deficits. Though he has a history of frequent falls his daughter denied any recent trauma. She also reports that the patient's blood pressure generally runs on the low low side with a systolic around 90s. At bedside he is resting comfortably. He is awake, alert and oriented to place and reason for presentation. He is slightly tremulous due to his Parkinson's. On a separate note the patient had presented to the hospital yesterday for CT scans of the thorax, abdomen and pelvis ordered by his primary care physician. This was likely to monitor his aortic aneurysm. It showed a slight increase in the infrarenal abdominal aortic aneurysm which measured 8 x 7.5 cm. There was no evidence of aortic rupture. The CT angiogram of the thorax was negative for pulmonary embolism, aortic d issection. It showed left basilar consolidation which could represent atelectasis, aspiration pneumonia. There was a small loculated left pleural effusion. The patient's daughter opted not to have any further intervention done. And requested comfort measures. As a result the patient was admitted and hospice consulted. - HOSPITAL COURSE Hospital Course: Patient was admitted for right lower extremity weakness, patient had multiple fell in the home. pt had history of dementia, Parkinson's disease on Sinemet, a very large abdominal aortic aneurysm for which he is not a surgical candidate. CT scan of the brain which showed Subcortical intraparenchymal hematoma involving the left parietal lobe at the vertex with mild associated vasogenic edema. No midline shift or other evidence of herniation was seen. The repeat CT head revealed there was no progression of the area of hemorrhage or localized edema around it and no midline shift. there is no extension of the hemorrhage.Patient feed by himself, patient cooperated with PT/OT, and Progressing with PT/OT. Patient's daughter initially agreed to have hospice care for patient, now The daughter is very agreeable to the plan to d/c to SNF. Patient was discharge to [facility]. - ALLERGIES Allergies/Adverse Reactions: Allergies Allergy/AdvReac Type Severity Reaction Status Date / Time No Known Drug Allergies Allergy Verified 01/12/20 18:54 - MEDICATIONS Home Medications: Ambulatory Orders Medication Instructions Recorded Confirmed Tamsulosin HCl [Flomax] 0.4 mg PO QPM 0701/13/20 Carbidopa/Levodopa 1 tab PO 0800,1230,1700,2130 01/13/20 01/13/20 [Carbidopa-Levodopa 25-100 Tab] - PHYSICAL EXAM AT DISCHARGE General Appearance: positive: No acute distress, Alert. negative: Lethargic Eyes Bilateral: positive: Normal inspection, PERRL, No lid inflammation ENT: positive: ENT inspection nml, Pharynx nml, No signs of dehydration. negative: Dry mucous membranes Neck: positive: Nml inspection, Thyroid nml, No JVD, Trachea midline. negative: Thyromegaly, Stiff neck, Tracheal deviation Respiratory: positive: Chest non-tender, No respiratory distress, Breath sounds nml. negative: Wheezes, Rales, Rhonchi Cardiovascular: positive: Regular rate & rhythm, No murmur. negative: Extrasystoles, Tachycardia, Bradycardia, Systolic murmur, Diastolic murmur Peripheral Pulses: positive: 2+ Abdomen: positive: Non-tender, No organomegaly, Nml bowel sounds, No distention. negative: Tenderness, Guarding, Rebound Back: positive: Nml inspection. negative: CVA tenderness (R), CVA tenderness (L) Skin: positive: Color nml, No rash, Warm, Dry. negative: Cyanosis, Diaphoresis, Pallor Extremities: positive: Non-tender, Nml appearance. negative: Calf tenderness, Heydi's sign/cords Neurologic/Psychiatric: positive: Sensation nml, Mood/affect nml. negative: Weakness, Sensory loss, Facial droop, Slurred/abnml speech, Depressed mood/affect - LABS Result Diagrams: 01/12/20 20:25 01/12/20 20:25 - SEPSIS Current Stage of Sepsis: Ruled out - FOLLOW UP Follow Up: followup medical provider of [facility]. continue PT and OT rehab daily at SNF. Continue with his usual medications. Avoid antiplatelet agents and anticoagulants. - TIME SPENT Time Spent in Discharge (Minutes): 30
[2020-01-18] MEDS ORDERED: SODIUM CHLORIDE 0.9% 500 ML IV ONE (12:30)
[2020-01-18 13:30] VITALS: BP 106/65
== END 2020-01-18 14:35 | DRG 66 ==
LOC: EDUNIT# → ED 18:46 → MS2 21:24
PROVIDERS: ADMIT Internal Medicine; ATTEND Nurse Practitioner Gerontology
DX: I62.9 Nontraumatic intracranial hemorrhage, unspecified (principal); R27.0 Ataxia, unspecified; I61.0 Nontraumatic intracerebral hemorrhage in hemisphere, subcortical; G83.11 Monoplegia of lower limb affecting right dominant side; G20 Parkinson's disease; F02.80 Dementia in other diseases classified elsewhere, unspecified severity, without behavioral disturbance, psychotic disturbance, mood disturbance, and anxiety; N40.0 Benign prostatic hyperplasia without lower urinary tract symptoms; I71.4 Abdominal aortic aneurysm, without rupture; M79.604 Pain in right leg; I95.9 Hypotension, unspecified; N40.1 Benign prostatic hyperplasia with lower urinary tract symptoms; R33.8 Other retention of urine; E78.00 Pure hypercholesterolemia, unspecified; K59.09 Other constipation; H54.7 Unspecified visual loss; H53.2 Diplopia; Z66 Do not resuscitate; Z51.5 Encounter for palliative care; Z03.818 Encounter for observation for suspected exposure to other biological agents ruled out; Z91.81 History of falling
CPT/HCPCS: 36415; 70450; 71045; 80053; 81003; 83690; 84484; 85025; 85610; 85730; 93005; 93971; 97162; 97166; 97530; 99285; 99291; A9270; U0004; 81001; 81599; 87086

== ENCOUNTER 2020-01-18 14:41 | Outpatient (CLI) | payer MEDICARE | END 2020-01-18 14:42 | LOC: EMS 14:41 | PROVIDERS: ATTEND Surgery | DX: I62.9 Nontraumatic intracranial hemorrhage, unspecified (principal); Z74.01 Bed confinement status | CPT/HCPCS: A0425; A0428 ==

== ENCOUNTER 2020-05-10 08:00 | Outpatient (CLI) | payer MEDICARE ==
[2020-05-10 17:21] LABS: BILIRUBIN,URINE NEGATIVE (NEGATIVE); GLUCOSE, URINE (UA) NEGATIVE (NEGATIVE); KETONES,URINE (UA) NEGATIVE (NEGATIVE); LEUKOCYTE ESTERASE, URINE LARGE (NEGATIVE); NITRITE,URINE NEGATIVE (NEGATIVE); OCCULT BLOOD,URINE SMALL (NEGATIVE); PROTEIN,URINE 100 mg/dL (NEGATIVE); UROBILINOGEN,URINE 0.2 (NORMAL) E.U./dL (NORMAL)
[2020-05-10 17:41] LABS: CLARITY,URINE CLOUDY (CLEAR)
[2020-05-10 18:09] LABS: BACTERIA,URINE Few /HPF (None Seen); RBC,URINE 0-5 /HPF (0-5); SQUAMOUS EPITHELIAL CELL,UR NONE SEEN (<= Few)
== END 2020-05-10 23:59 | disposition home or self-care (01) ==
LOC: LAB.R 08:00
PROVIDERS: ATTEND Family Medicine
DX: R30.0 Dysuria (principal)
CPT/HCPCS: 81001; 87077; 87086; 87181

== ENCOUNTER 2020-05-14 12:32 | Outpatient (CLI) | payer MEDICARE ==
[2020-05-14] MEDS ORDERED: GADOBUTROL 10 MMOL/10 ML VIAL ONE (12:57)
[2020-05-14] MEDS ORDERED: GADOBUTROL 10 MMOL/10 ML VIAL IVP ONE (14:10)
--- NOTE | 2020-05-14 15:07 | MRI Report ---
PROCEDURE: Brain W/WO INDICATIONS: NONTRAUMATIC INTRACEREBRAL HEMORRHAGE, located at the left paramedian parietal lobe fro m CT scanning performed 01/13/2020 CONTRAST: IV CONTRAST: Gadavist ml: 8 TECHNIQUE: Noncontrast axial T1 spin echo, axial T2 fast spin echo, sagittal and axial FLAIR, coronal T2 fast sp in echo, axial gradient echo, axial diffusion and ADC through the brain. After the administration of contrast, axial and coronal T1 spin echo with fat saturation through the brain. COMPARISON: Prior head CT 01/13/2020.. FINDINGS: Image quality: Excellent. CSF spaces: Basal cisterns are patent. No extra-axial fluid collections. Ventricles are normal in size and shape. Brain: No midline shift. No intracranial bleeds or masses. No abnormal intracranial enhancement. There is cerebral volume loss for age. There is periventricular white matter chronic small vessel is chemic change. The brainstem appears normal. Diffusion-weighted images demonstrate no acute ischemi c insults. There is focal encephalomalacia corresponding to the area of prior subcortical white enzo er hemorrhage seen on the prior CT scan from January of this year. A small amount of hemosiderin deposit ion within the cortex in this area is present. No vascular malformation is seen on postcontrast imagi ng. No aneurysm or vascular malformation is suspected. No chronic ischemic insults. Normal intravasc ular flow voids are present. Skull and face: Calvarial marrow is normal in signal. Orbits appear normal. Sinuses: Sinuses and mastoids appear clear. IMPRESSION: The area of hemorrhage from prior CT scanning in January of this year likely was a manifest ation of hemorrhagic transformation of a focal left parietal cortical stroke. The hemorrhage has invo luted, and only a small amount of hemosiderin deposition producing susceptibility artifact in that ar ea remains, in addition to mild focal encephalomalacia. These are expected changes over time. No vasc ular malformation is seen, no underlying infection or neoplasm is suspected. Mild to moderate microva scular atherosclerotic change is noted within the deep white matter of each hemisphere, expected for age. Reviewed by: Johnie Roland MD on 05/14/2020 3:06 PM PDT Approved by: Johnie Roland MD on 05/14/2020 3:06 PM PDT Station ID: [id number]
--- NOTE | 2020-05-14 15:08 | MRI Report ---
PROCEDURE: Angio Brain W/O (MRA) INDICATIONS: NONTRAUMATIC INTRACEREBRAL HEMORRHAGE TECHNIQUE: Noncontrast axial 3-D [id number] MR angiogram, with 3-dimensional maximum intensity projection (M IP) reformats of the internal carotid arteries and posterior circulation then performed. COMPARISON: Prior head CT from 01/13/2020, and brain MRI without and with contrast earlier same day re viewed. FINDINGS: Image quality: Excellent. Anterior circulation: Intracranial internal carotid arteries demonstrate normal size and intralumina l flow signal. The flow within the paired anterior cerebral arteries is normal and symmetric. The f low within the middle cerebral arteries is normal and symmetric. The anterior communicating artery i s seen. No stenoses, occlusions, or aneurysms. Posterior circulation: Visualized portions of the vertebral arteries demonstrate normal caliber, and join to form a normal appearing basilar artery. The flow within the posterior cerebral arteries is normal and symmetric. No stenoses, occlusions, or aneurysms. IMPRESSION: Normal intracranial MR angiogram. Reviewed by: Johnie Roland MD on 05/14/2020 3:07 PM PDT Approved by: Johnie Roland MD on 05/14/2020 3:07 PM PDT Station ID: [id number]
== END 2020-05-14 12:33 | disposition home or self-care (01) ==
LOC: DI 12:32
PROVIDERS: ATTEND Psychiatry & Neurology Neurology
DX: I61.9 Nontraumatic intracerebral hemorrhage, unspecified (principal)
CPT/HCPCS: 70544; 70553; A9585